=== PATIENT | male | born 1955 | race Caucasian/White ===

== ENCOUNTER 2020-07-05 12:30 | Emergency (ER) | payer BC, OTHER ==
[2020-07-05] MEDS ORDERED: HYDROCORTISONE SUC 100 MG INJ ONE (12:56)
[2020-07-05 13:13] LABS: Absolute Lymphocytes (CBC) 0.5 K/uL (0.7-4.9); Basophils % 0.7 % (0-1.3); Lymphocytes % 9.5 % (15.3-44.8); RBC Red Blood Cell Count 4.37 M/uL (4.33-5.43)
[2020-07-05 13:40] LABS: Potassium 3.6 mmol/L (3.5-5.1)
--- NOTE | 2020-07-05 14:07 | RAD REPORT ---
EXAM DESCRIPTION: RAD - Chest Single View - 07/05/2020 1:30 pm CLINICAL HISTORY: COUGH, slurred speech, tachypnea, productive cough, hypoglycemia COMPARISON: None TECHNIQUE: AP portable chest image was obtained 07/05/2020 1:30 pm . FINDINGS: No focal mass or consolidation identified. Interstitial pattern is mildly prominent but no t outside of range of normal for a patient this age. Sternotomy wires are in place. Heart and vascula ture are normal. No measurable pleural effusion and no pneumothorax. No acute bony abnormality seen. No acute aortic findings suspected. IMPRESSION: No acute cardiopulmonary process.
[2020-07-05 14:25] LABS: SARS-COV-2 RT PCR NEGATIVE (NEGATIVE)
--- NOTE | 2020-07-05 15:10 | ER ---
Nurse's Notes [facility] Name: Jc Lozano Age: 64 yrs Sex: Male : 1955 Arrival Date: 07/05/2020 Time: 12:31 Bed 5 Private MD: Diagnosis: Hypoglycemia, unspecified Presentation: 07/05 12:31 Chief complaint: EMS states: [facility] 17 upon scene arrival and increased to 36 after 2 aa5 oral glucose and glucagon administration. EMS reports pt was awake with slurred speech upon arrival but became A\T\O x 4 en route. Thacypnea noted, pt reports productive cough and SOB since August 2019. 12:31 Coronavirus screen: cough unrelated to allergies, shortness of breath, Client presents aa5 with at least one sign or symptom that may indicate coronavirus-19. Standard/surgical mask placed on the client. Provider contacted for isolation considerations. Ebola Screen: Patient negative for fever greater than or equal to 101.5 degrees Fahrenheit, and additional compatible Ebola Virus Disease symptoms. Initial Sepsis Screen: Does the patient meet any 2 criteria? RR > 20 per min. HR > 90 bpm. Yes Does the patient have a suspected source of infection? Yes: Productive cough/pneumonia If YES to both, name of provider notified: Robreto Jaramillo MD. Risk Assessment: Do you want to hurt yourself or someone else? Patient reports no desire to harm self or others. Onset of symptoms was July 05, 2020. 12:31 Acuity: ALVARADO 2 aa5 12:31 Method Of Arrival: EMS: [facility] aa5 Historical: - Allergies: 12: No Known Allergies; aa5 - Home Meds: 12:31 furosemide 40 mg oral tab take 1 1/2 tabs twice a day [Active]; losartan 50 mg oral tab aa5 once daily [Active]; Plavix 75 mg Oral tab 1 tab once daily [Active]; glipizide 5 mg oral tab 0.5 tabs 2 times per day [Active]; pravastatin 40 mg oral tab 1 tab once daily [Active]; carvedilol 3.125 mg oral tab 2 times per day [Active]; - PMHx: 12:31 Hypertension; CVA; Diabetes - NIDDM; aa5 12:31 CHF; aa5 - PSHx: 12:31 Open Heart Surgery August 2019; aa5 - Immunization history:: Adult Immunizations unknown. - Social history:: Smoking status: Patient denies any tobacco usage or history of. - Family history:: not pertinent. - Hospitalizations: : No recent hospitalization is reported. Screenin:00 Abuse screen: Denies threats or abuse. Denies injuries from another. Nutritional jl7 screening: No deficits noted. Tuberculosis screening: No symptoms or risk factors identified. Fall Risk IV access (20 points). Assessment: 12:31 General: Appears uncomfortable, Behavior is cooperative. Pain: Denies pain. Neuro: aa5 Level of Consciousness is awake, alert, obeys commands, Oriented to person, place, time, situation. Cardiovascular: Heart tones S1 S2 present Lower extremities with multiple small scabs noted. . Rhythm is regular. Respiratory: Reports shortness of breath at rest on exertion cough that is productive, Airway is patent Respiratory effort is even, labored, Respiratory pattern is tachypnea Breath sounds are diminished bilaterally. GI: Abdomen is round. : No signs and/or symptoms were reported regarding the genitourinary system. EENT: No signs and/or symptoms were reported regarding the EENT system. Derm: Skin is dry, Skin is pale, Skin temperature is warm. Musculoskeletal: Range of motion: intact in all extremities. 13:10 Reassessment: Marked relief of symptoms noted, respirations are now unlabored and pt aa5 reports improvement of SOB. . 13:12 Reassessment: Patient is alert, oriented x 3, equal unlabored respirations, skin aa5 warm/dry/pink. Patient states symptoms have improved. Dr. Jaramillo at bedside checking on pt. . 13:13 Reassessment: Dr. Jaramillo at bedside discussing results and POC. jl7 14:00 Reassessment: Patient is alert, oriented x 3, equal unlabored respirations, skin aa5 warm/dry/pink. 16:17 Reassessment: Pt waiting for to come pick him up. jl7 Vital Signs: 12:31 BP 155 / 123; Pulse 93; Resp 26 S; Temp 99.6(O); Pulse Ox 98% on R/A; Pain 0/10; aa5 13:10 BP 143 / 76; Pulse 104; Resp 20 S; Pulse Ox 96% on R/A; jl7 ED Course: 12:30 Patient has correct armband on for positive identification. Placed in gown. Bed in low jl7 position. Call light in reach. Side rails up X2. hall monitor on. Pulse ox on. NIBP on. 12:30 No provider procedures requiring assistance completed. jl7 12:31 Patient arrived in ED. rn 12:31 Arm band placed on Patient placed in an exam room, on a stretcher. aa5 12:32 Roberto Jaramillo MD is Attending Physician. rn 12:38 Juli Tovar, KANE is Primary Nurse. aa5 12:40 Initial lab(s) drawn, by me, sent to lab. Inserted saline lock: 20 gauge in right aa5 antecubital area, using aseptic technique. Blood collected. 12:57 Triage completed. aa5 13:30 XRAY Chest (1 view) In Process Unspecified. EDMS 15:45 IV discontinued, intact, bleeding controlled, No redness/swelling at site. Pressure jl7 dressing applied. Administered Medications: 12:38 Not Given (Physician Discretion): D50W 50 ml IVP once; (1 amp) aa5 12:40 Drug: HydroCORTISONE 50 mg Route: IVP; Site: right antecubital; aa5 Outcome: 15:10 Discharge ordered by MD. rn 15:45 Discharged to home ambulatory, with family. jl7 15:45 Condition: stable 15:45 Discharge instructions given to patient, Instructed on discharge instructions, follow up and referral plans. Demonstrated understanding of instructions, follow-up care. 16:39 Patient left the ED. iw Signatures: Dispatcher [employer] EDMS Jerica Landaverde RN RN iw Roberto Jaramillo MD MD rn Calderon, Audri, KANE MIDDLETON aa5 Stephan Figueroa RN RN jl7 Corrections: (The following items were deleted from the chart) 13:00 12:31 Chief complaint: EMS states: [facility] 17 upon scene arrival and increased to 36 after aa5 2 oral glucose and glucagon administration. EMS reports pt was awake with slurred speech upon arrival but became A\T\O x 4 en route. aa5 13:00 12:31 Coronavirus screen: cough unrelated to allergies, shortness of breath, Client aa5 presents with at least one sign or symptom that may indicate coronavirus-19. Standard/surgical mask placed on the client. Provider contacted for isolation considerations. aa5 13:03 12:31 PSHx: Open Heart Surgery; aa5 aa5
--- NOTE | 2020-07-05 15:11 | EDPHYS ---
Physician Documentation [facility] Name: Jc Lozano Age: 64 yrs Sex: Male : 1955 Arrival Date: 07/05/2020 Time: 12:31 Bed 5 Private MD: ED Physician Roberto Jaramillo HPI: 07/05 13:25 This 64 yrs old Male presents to ER via EMS with complaints of low blood rn sugar. 13:25 The patient or guardian reports hypoglycemia, that was potentially precipitated by no rn particular event, with the patient's symptoms witnessed by family, Treatment prior to arrival includes: administration of glucagon, ingestion of sugary substance, EMS administered glucagon. Onset: The symptoms/episode began/occurred just prior to arrival. Current symptoms: In the emergency department the patient's symptoms have improved. The patient has experienced a previous episode. Reports woke up "unconscious", glucose was low, called 911, EMS arrived, slurred speech and glucose 17, unable to start IV, given oral glucose and glucagon, improvement of mental status and glucose. Pt takes glipizide, reports ate last night before bed, normal amount, and has not felt ill. Reports since august 2019 when had cardiac bypass has been having white sputum and inability to lay flat, has appt with pcp coming up, takes lasix at home. Denies fever at home. Denies being any more sob than usual for him.. Historical: - Allergies: 12:31 No Known Allergies; aa5 - Home Meds: 12:31 furosemide 40 mg oral tab take 1 1/2 tabs twice a day [Active]; losartan 50 mg oral tab aa5 once daily [Active]; Plavix 75 mg Oral tab 1 tab once daily [Active]; glipizide 5 mg oral tab 0.5 tabs 2 times per day [Active]; pravastatin 40 mg oral tab 1 tab once daily [Active]; carvedilol 3.125 mg oral tab 2 times per day [Active]; - PMHx: 12:31 Hypertension; CVA; Diabetes - NIDDM; aa5 12:31 CHF; aa5 - PSHx: 12:31 Open Heart Surgery August 2019; aa5 - Immunization history:: Adult Immunizations unknown. - Social history:: Smoking status: Patient denies any tobacco usage or history of. - Family history:: not pertinent. - Hospitalizations: : No recent hospitalization is reported. ROS: 13:25 Constitutional: Negative for fever, chills, and weight loss, Eyes: Negative for injury, rn pain, redness, and discharge, Neck: Negative for injury, pain, and swelling, Cardiovascular: Negative for chest pain, palpitations, and edema, Respiratory: Negative for wheezing, and pleuritic chest pain, Abdomen/GI: Negative for abdominal pain, nausea, vomiting, diarrhea, and constipation, Back: Negative for injury and pain, MS/Extremity: Negative for injury and deformity, Skin: Negative for injury, rash, and discoloration, Neuro: Negative for headache, weakness, numbness, tingling, and seizure. Exam: 13:25 Constitutional: This is a well developed, well nourished patient who is awake, alert, rn moves from stretcher to bed on his own. Head/Face: Normocephalic, atraumatic. Eyes: Periorbital areas with no swelling, redness, or edema. ENT: dry MM Cardiovascular: Tachycardic, regular Respiratory: Mild tachypnea Abdomen/GI: soft, non-tender Skin: Warm, dry MS/ Extremity: Pulses equal, no cyanosis. Neurovascular intact. Full, normal range of motion. Neuro: Awake and alert, GCS 15, oriented to person, place, time, and situation. Cranial nerves II-XII grossly intact. Motor strength 5/5 in all extremities. Sensory grossly intact. Cerebellar exam normal. Vital Signs: 12:31 BP 155 / 123; Pulse 93; Resp 26 S; Temp 99.6(O); Pulse Ox 98% on R/A; Pain 0/10; aa5 13:10 BP 143 / 76; Pulse 104; Resp 20 S; Pulse Ox 96% on R/A; jl7 MDM: 12:32 Patient medically screened. rn 15:01 Differential diagnosis: hypoglycemic episode. Data reviewed: vital signs, nurses notes, intake rn test result(s), radiologic studies, and as a result, I will discharge patient. Counseling: I had a detailed discussion with the patient and/or guardian regarding: the historical points, exam findings, and any diagnostic results supporting the discharge/admit diagnosis, lab results, radiology results, the need for outpatient follow up, to return to the emergency department if symptoms worsen or persist or if there are any questions or concerns that arise at home. Response to treatment: the patient's symptoms have markedly improved after treatment, the patient's condition has returned to base line, the patient is now symptom free, patient is well hydrated. and as a result, I will discharge patient. Special discussion: I discussed with the patient/guardian in detail that at this point there is no indication for admission to the hospital. It is understood, however, that if the symptoms persist or worsen the patient needs to return immediately for re-evaluation. Based on the history and exam findings, there is no indication for further emergent testing or inpatient evaluation. I discussed with the patient/guardian the need to see the cereal miller for further evaluation of the symptoms. I discussed with the patient/guardian the need to see the primary care provider for further evaluation of the symptoms. I discussed with the patient/guardian the need to see the smoking pipe coater for further evaluation of the symptoms. ED course: Glucose stabilized, ate here, repeat glucose stable in 200s, reports breathing at baseline, cxr no acute findings, covid and flu neg, bnp normal, will dc home. Reports has doctor liliane borrero to address longstanding sob since cardiac bypass. . 07/05 12:34 Order name: CBC with Diff; Complete Time: 13:58 rn 07/05 12:34 Order name: Basic Metabolic Panel; Complete Time: 13:58 rn 07/05 12:47 Order name: Glucose, Ancillary Testing; Complete Time: 13:58 EDMS 07/05 12:34 Order name: IV Start; Complete Time: 12:39 rn 07/05 12:42 Order name: Diet Regular; Complete Time: 12:43 eb 07/05 13:14 Order name: XRAY Chest (1 view); Complete Time: 14:10 rn 07/05 13:16 Order name: NT PRO-BNP; Complete Time: 13:58 EDMS 07/05 14:15 Order name: Glucose, Ancillary Testing; Complete Time: 15:00 EDMS 07/05 14:25 Order name: COVID-19/FLU A+B; Complete Time: 15:00 EDMS 07/05 12:34 Order name: PO challenge; Complete Time: 12:39 rn Administered Medications: 12:38 Not Given (Physician Discretion): D50W 50 ml IVP once; (1 amp) aa5 12:40 Drug: HydroCORTISONE 50 mg Route: IVP; Site: right antecubital; aa5 Disposition: 07/05/20 15:10 Discharged to Home. Impression: Hypoglycemia, unspecified. - Condition is Stable. - Discharge Instructions: Hypoglycemia, Blood Glucose Monitoring, Adult. - Medication Reconciliation Form, Thank You Letter, Antibiotic Education, Prescription Opioid Use, Work release form form. - Follow up: Private Physician; When: As needed; Reason: Recheck today's complaints, Re-evaluation by your physician. - Problem is new. - Symptoms have improved. Signatures: Dispatcher [employer] EDMS Jerica Landaverde RN RN iw Nieto, Roman, MD MD rn Calderon, Audri, RN RN aa5 Corrections: (The following items were deleted from the chart) 13:03 12:31 PSHx: Open Heart Surgery; 5 5 13:16 13:15 PROBNP+C.LAB.BRZ ordered. EDNM EDNM 13:45 13:15 CORONAVIRUS+MR.LAB.BRZ ordered. EDNM EDNM 16:39 15:10 07/05/2020 15:10 Discharged to Home. Impression: Hypoglycemia, unspecified. iw Condition is Stable. Forms are Medication Reconciliation Form, Thank You Letter, Antibiotic Education, Prescription Opioid Use. Follow up: Private Physician; When: As needed; Reason: Recheck today's complaints, Re-evaluation by your physician. Problem is new. Symptoms have improved. rn
[2020-07-05 16:43] VITALS: TEMP 99.6
[2020-07-05 16:44] VITALS: BP 143/76; O2SAT 96
== END 2020-07-05 16:39 | disposition home or self-care (01) ==
LOC: ER 12:30
DX: E11.649 Type 2 diabetes mellitus with hypoglycemia without coma (principal); Z20.822 Contact with and (suspected) exposure to COVID-19; I10 Essential (primary) hypertension; I50.9 Heart failure, unspecified; Z86.73 Personal history of transient ischemic attack (TIA), and cerebral infarction without residual deficits; Z79.4 Long term (current) use of insulin; Z79.01 Long term (current) use of anticoagulants; Z95.1 Presence of aortocoronary bypass graft
CPT/HCPCS: 85025; 80048; 36415; 82947 ×2; 83880; 0240U; 71045; J1720; 96374; 99284

== ENCOUNTER 2024-02-16 16:09 | Emergency (ER) | payer OTHER ==
--- OUTSIDE RECORDS SUMMARY | 2024-02-16 16:21 | XMS REPORT | Continuity of Care Document ---
Author Name Unknown Address [address] [facility] [place] [address] [facility] thconnect Address [address] [facility] [place] [address] Care Team Providers Care Manufacturing Engineer Machining Name Role Phone DELICIAMKAI MORALES Primary Care Physician Unavaila STEPHANIE Robledo Attending Clinician Unavailable STEPHANIE ESTRADA Attending Clinician Unavailable PAUL THAKKAR Attending Clinician Unavailable VIKTORIA WARREN Attending Clinician Unavailab VIKTORIA Gusman Attending Clinician Unavailab NOEMI Lin Attending Clinician Unavailable Stephanie Estrada MD Attending Clinician Timmy Maddox CPhT Attending Clinician Unachapito edwards 2, [facility] Attending Clinician Unavailable Noemí Knowles MD Attending Clinician Noemi Quinonez MD Attending Clinician [phone] Paul Thakkar MD Attending Clinician [phone] [facility]ending Clinician Unavailable Doctor Unassigned, [place] Attending Clinician U robbieailable HOLGER SOLOMON Attending Clinician Unavailable Holger Solomon MD Attending Clinician [phone] Vivian Cloud NP Attending Clinician Po, [facility] Main Attending Clinician UnavailFEDERICO Middleton Attending Clinician Unavailable Viktoria Warren DO Attending Clinician JUANITO HOLLEY Attending Clinician Unavail able JUANITO HOLLEY Attending Clinician Unavail Juanito Tafoya MD Attending Clinician Giovanna Wilder MD Attending Clinician [phone] GIOVANNA WILDER Attending Clinician Unavailable Angela Clarke Attending Clinician Unava patsy Hyatt MD, Federico Attending Clinician [phone] INCO WEAVER Attending Clinician Unavailable NICO WEAVER Attending Clinician Unavailable Nico Weaver MD Attending Clinician [phone] VIVIAN CLOUD Attending Clinician Unavailab VIVIAN Woods Attending Clinician Unavailab nanda Miller MD, Keon Gonzalez Attending Clinician [phone] Bart Landers CRNA Attending Clinician [phone] LILLY VILLANUEVA Attending Clinician UnavailLILLY Mcgraw Attending Clinician UnavailMaki Moy MD Attending Clinician +-[phone] MAKI OBREGON Attending Clinician Unavailable CHANDA LONDONO Attending Clinician Unavailable CHANDA LONDONO Attending Clinician Unavailable Maki Obregon MD Attending Clinician + [phone], [facility] Attending Clinician Unavailable Britni Jackson RN Attending Clinician Unavailabl e Doctor Unassigned, [place] Attending Clinician U anna Thakkar MD, Paul Attending Clinician [phone] Viktoria Warren DO Attending Clinician [phone], [facility] Attending Clinician Unavailable JARED WILL Attending Clinician UnavailIVÁN Sanchez Attending Clinician Unavaila ble Nurse, [facility] Attending Clinician Unava ilLigia Brock Attending Clinician + [phone] Only, Ad[facility] Test Attending Clinician Unavailable Daxa GUARDADO, Doug Dhaliwal Attending Clinician + [phone] [phone], [facility] Main Attending Clinician UnavailANNE-MARIE Schuler Attending Clinician Unavailable Cheng Attending Clinician Unavailable , [facility] Echo Room 1 - Attending Clinician Brianna [facility], [facility] Cardiac Attending Clinician Unavailab Markus Maurer MD Attending Clinician [phone] MARKUS ANDREA JR Attending Clinician UnavailJovita Farrell RN Attending Clinician [phone] CHRISTA MAYS Attending Clinician Unavailrui e Christa Conrad Attending Clinician [phone] Justice Villegas MD Attending Clinician [phone] Outpt-Raya, Ccl Attending Clinician Unavailable Tech, [facility] Cardio Fac Attending Clinician Unavail able 1, [facility] Room Attending Clinician Jayesh Doyle RN, Chani Brenner Attending Clinician + [phone] STEPHANIE ESTRADA Admitting Clinician Unavailable NOEMÍ KNOWLES Admitting Clinician Unavailable JUANITO HOLLEY Admitting Clinician Unavail able GIOVANNA WILDER Admitting Clinician Unavailable Giovanna Wilder MD Admitting Clinician [phone] VIKTROIA WARREN Admitting Clinician Unavailable PAUL THAKKAR Admitting Clinician Unavailable Cheng Admitting Clinician Unavailable MARKUS ANDREA JR Admitting Clinician UnavailMarkus Vázquez MD Admitting Clinician [phone] CHRISTA MAYS Admitting Clinician Unavailrui esquivel Payers Payer Name Policy Type Policy Number Effective Date Expirati on Date Source MEDICARE PART A \\T\\ B [id number] 2019 00:00:00 COMMERCIAL NON-CONTRACT GENERIC [id number] 2022 00:00:00 Problems Condition Name Condition Details Condition Category Status Onset Date Resolution Date Last Treatment Date Treating Clinician Comments Source 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 Disease Active 02-05 00:00: 00 [facility] Abnormal stress test Abnormal stress test Disease Active 02-05 00:00: 00 [facility] acute hospital Chronic HFrEF (heart failure with reduced ejection fraction) Chronic HFrEF (heart failure with reduced ejection fraction) Disease Active 02-05 00:00: 00 [facility] acute hospital Mixed hyperlipid emia Mixed hyperlipid emia Disease Active 01-18 00:00: 00 [facility] acute hospital Preoperati ve cardiovasc ular examinatio n Preoperati ve cardiovasc ular examinatio n Disease Active 8-09 00:00: 00 [facility] acute hospital Statin intoleranc e Statin intoleranc e Disease Active 8-09 00:00: 00 [facility] acute hospital Dysplastic colon polyp Dysplastic colon polyp Disease Active 8- 00:00: 00 [facility] acute hospital Cecal lesion Cecal lesion Disease Active 8- 00:00: 00 [facility] acute hospital Overlappin g malignant neoplasm of colon Overlappin g malignant neoplasm of colon Disease Active 8- 00:00: 00 [facility] acute hospital Screening for rectal cancer Screening for rectal cancer Disease Active 6-06 00:00: 00 [facility] acute hospital Chronic heart failure with preserved ejection fraction Chronic heart failure with preserved ejection fraction Disease Active 5-15 00:00: 00 [facility] acute hospital Dyslipidem ia Dyslipidem ia Disease Active 5-15 00:00: 00 [facility] acute hospital COPD without exacerbati on COPD without exacerbati on Disease Active 5-15 00:00: 00 General acute hospital Forgetfuln ess Forgetfuln ess Disease Active 5-15 00:00: 00 [facility] acute hospital Cellulitis of left leg Cellulitis of left leg Disease Active 7-14 00:00: 00 [facility] acute hospital Seasonal allergic rhinitis, unspecifie d trigger Seasonal allergic rhinitis, unspecifie d trigger Disease Active 7-14 00:00: 00 [facility] acute hospital Alcoholism Alcoholism Disease Active 7-14 00:00: 00 [facility] acute hospital Hospital discharge follow-up Hospital discharge follow-up Disease Active 4-14 00:00: 00 [facility] acute hospital S/P CABG x 3 (HAIDER to LAD, SVG to PDA, SVG to OM) on 08/13/2019; Dr Andrea S/P CABG x 3 (HAIDER to LAD, SVG to PDA, SVG to OM) on 08/13/2019; Dr Andrea Disease Active 3-03 00:00: 00 [facility] acute hospital CAD S/P percutaneo us coronary angioplast y CAD S/P percutaneo us coronary angioplast y Disease Active 06-30 00:00: 00 [facility] acute hospital Medicare annual wellness visit, initial Medicare annual wellness visit, initial Disease Active 06-30 00:00: 00 [facility] acute hospital Tobacco dependence Tobacco dependence Disease Active 06-30 00:00: 00 General acute hospital Need for Tdap vaccinatio n Need for Tdap vaccinatio n Disease Active 06-30 00:00: 00 [facility] acute hospital Diabetic foot Diabetic foot Disease Active 06-30 00:00: 00 General acute hospital CHF (congestiv e heart failure) CHF (congestiv e heart failure) Disease Active 06-21 00:00: 00 [facility] acute hospital Coronary artery disease involving [place] coronary artery of [place] heart without angina pectoris Coronary artery disease involving [place] coronary artery of [place] heart without angina pectoris Disease Active 06-20 00:00: 00 [facility] acute hospital Acute on chronic combined systolic and diastolic congestive heart failure Acute on chronic combined systolic and diastolic congestive heart failure Disease Active 06-20 00:00: 00 [facility] acute hospital Type 2 myocardial infarction Type 2 myocardial infarction Disease Active 06-20 00:00: 00 [facility] acute hospital Abnormal nuclear stress test Abnormal nuclear stress test Disease Active 06-20 00:00: 00 [facility] acute hospital Coronary artery disease involving [place] coronary artery of [place] heart without angina pectoris Coronary artery disease involving [place] coronary artery of [place] heart without angina pectoris Disease Active 06-20 00:00: 00 [facility] acute hospital History of closure of ileostomy History of closure of ileostomy Disease Active 2017-06 00:00: 00 [facility] acute hospital Essential hypertensi on Essential hypertensi on Disease Active 01-28 00:00: 00 [facility] acute hospital Rectal cancer Rectal cancer Disease Active 01-28 00:00: 00 [facility] acute hospital Cerebrovas cular accident (CVA) due to thrombosis of carotid artery, unspecifie d blood vessel laterality Cerebrovas cular accident (CVA) due to thrombosis of carotid artery, unspecifie d blood vessel laterality Disease Active 01-28 00:00: 00 [facility] acute hospital Patient uses snuff Patient uses snuff Disease Active 01-28 00:00: 00 [facility] acute hospital Chronic systolic heart failure Chronic systolic heart failure Disease Active 01-28 00:00: 00 [facility] acute hospital Type 2 diabetes mellitus without complicati on, without long-term current use of insulin Type 2 diabetes mellitus without complicati on, without long-term current use of insulin Disease Active 12-05 00:00: 00 [facility] acute hospital History of alcohol abuse History of alcohol abuse Disease Active 12-05 00:00: 00 [facility] acute hospital Anemia of chronic disease Anemia of chronic disease Disease Active 12-05 00:00: 00 [facility] acute hospital History of CVA (cerebrova scular accident) History of CVA (cerebrova scular accident) Disease Active 06-12 00:00: 00 [facility] acute hospital History of MA (myocardia l infarction ) History of MA (myocardia l infarction ) Disease Active [facility] acute hospital History of rectal cancer History of rectal cancer Disease Active General acute hospital GI bleed GI bleed Disease Resolve d 12-25 00:00: 00 2018-06-20 00:00:00 2018-06-20 23:55:50 General acute hospital Hematochez ia Hematochez ia Disease Resolve d 12-16 00:00: 00 2018-06-20 00:00:00 2018-06-20 23:55:49 General acute hospital Stroke Stroke Disease Resolve d 12-16 00:00: 00 2017-01-28 00:00:00 2017-01-28 20:15:49 General acute hospital Bruit Bruit Disease Resolve d 12-06 00:00: 00 2017-01-28 00:00:00 2017-01-28 18:56:24 General acute hospital Congestive heart failure of unknown etiology Congestive heart failure of unknown etiology Disease Resolve d 12-05 00:00: 00 2017-01-28 00:00:00 2017-01-28 18:56:28 General acute hospital Acute combined systolic and diastolic congestive heart failure Acute combined systolic and diastolic congestive heart failure Disease Resolve d 12-05 00:00: 00 2017-01-28 00:00:00 2017-01-28 18:56:36 General acute hospital Allergies, Adverse Reactions, Alerts Allergy Name Allergy Type Status Severity Reaction(s) Onset Date Inactive Date Treating Clinician Comments Source STATINS- HMG-COA REDUCTAS E INHIBITO RS Drug Class Active Other-Cmnt 01-20 00:00: 00 General acute hospital Statins- Hmg-Coa Reductas e Inhibito rs Propensi ty to adverse reaction s Active Other - See comments 01-20 00:00: 00 myalgai [facility] acute hospital NO KNOWN ALLERGIE S Drug Class Active [facility] acute hospital Family History Family Member Diagnosis Comments Start Date Stop Date Sourc e Natural father Diabetes Unive [facility] Natural father Hypertension Un [facility] Natural father Stroke Unive [facility] Natural [facility] Paternal grandmother Stroke [facility] Paternal Uncle Heart Unive [facility] Paternal Uncle Stroke Unive [facility] Natural sister Brain [facility] Social History Social Habit Start Date Stop Date Quantity Comments Source History of tobacco use Snuff User [facility] History SDOH Alcohol Frequency [facility] History SDOH Alcohol Std Drinks [facility] History SDOH Alcohol Binge [facility] Gender identity Univ [facility] Sexual orientation U niversFormerly [facility] Alcoholic beverage intake 2024-02-15 00:00:00 2024-02-15 00:00:00 Current drinker of alcohol (finding) [facility] History of Social function 2023-10-25 00:00:00 2023-10-25 00:00:00 [facility] Alcohol intake 2022-12-01 00:00:00 2022-12-01 00:00:00 Current drinker of alcohol (finding) [facility] Exposure to SARS-CoV-2 (event) 2022-06-05 00:00:00 2022-06-15 12:43:00 Not sure [facility] Tobacco Comment 2022-03-11 00:00:00 2022-03-11 00:00:00 Approx. 1/2 can per day [facility] Tobacco use and exposure 2022-03-11 00:00:00 2022-03-11 00:00:00 Former smokeless tobacco user [facility] Alcohol Comment 2018-06-20 00:00:00 2018-06-20 00:00:00 pint of liquor each week [facility] Sex assigned at 1955 00:00:00 1955 00:00:00 [facility] Smoking Status Start Date Stop Date Source Ex-smoker 2022-03-11 00:00:00 2022-03-11 00:00:00 [facility] Medications Ordered Medication Name Filled Medication Name Start Date Stop Date Current Medication? Ordering Clinician Indication Dosage Frequency Signature (SIG) Comments Components Source losartan 50 mg tablet 02-01 00:00: 00 Yes [id number] 02 50mg Take 1 tablet by mouth in the morning. [facility] acute hospital clopidogreL 75 mg tablet 02-01 00:00: 00 Yes [id number] 75mg Take 1 tablet by mouth in the morning. [facility] acute hospital regadenoson (LEXISCAN) injection 0.4 mg 01-31 15:21: 00 01-31 15:51 :00 No [id number] .4mg 0.4 mg, IV Push, ONCE, 1 dose, On Mon02/01/24 at 1030, Routine [facility] acute hospital tc 99m-tetrofo smin (MYOVIEW) injection 40.6 millicurie 01-31 15:15: 00 01-31 15:50 :00 No [id number] 40.6mCi 40.6 millicurie , Intravenou s, ONCE, 1 dose, On Mon02/01/24 at 1015, Routine [facility] acute hospital tc 99m-tetrofo smin (MYOVIEW) injection 15.4 millicurie 01-31 14:00: 00 01-31 14:00 :00 No [id number] 15.4mCi 15.4 millicurie , Intravenou s, ONCE, 1 dose, On Mon02/01/24 at 0900, Routine [facility] acute hospital perflutren protein-A microsphr (OPTISON) injection 3 mL 01-29 15:45: 00 01-29 15:30 :00 No [id number] 3mL 3 mL, IV Push, ONCE, 1 dose, On Mon01/30/24 at 1045, Routine [facility] acute hospital peg-electro lyte soln 236-22.74-6 .74 -5.86 gram solution 01-24 00:00: 00 01-25 04:59 :00 No 4000mL Take 4,000 mL by mouth once now for 1 dose. [facility] acute hospital neomycin 500 mg tablet 01-24 00:00: 00 01-25 04:59 :00 No 500mg Take 1 tablet by mouth once now for 1 dose. [facility] acute hospital metroNIDAZO LE 500 mg tablet 01-24 00:00: 00 01-25 04:59 :00 No 500mg Take 1 tablet by mouth once now for 1 dose. Take 1 gram ( 2 tablets) by mouth at 4:00 pm, 5:00 PM and 10 PM the day before your surgery. [facility] acute hospital evolocumab 140 mg/mL subcutaneou s injection 01-18 00:00: 00 01-19 04:59 :00 Yes [id number] 140mg inject 1 mL under the skin every 2 (two) weeks. [facility] acute hospital tamsulosin (FLOMAX) 0.4 mg 24 hr capsule 12-26 00:00: 00 Yes [id number] 9102 .4mg Take 1 capsule by mouth in the morning. [facility] acute hospital tolterodine LA 2 mg 24 hr capsule 12-26 00:00: 00 Yes [id number] 2mg Take 1 capsule by mouth in the morning. [facility] acute hospital predniSONE 20 mg tablet 12-25 00:00: 00 12-31 04:59 :00 Yes [id number] 40mg Take 2 tablets by mouth in the morning for 5 days. [facility] acute hospital iopamidol (ISOVUE 370-500 mL) injection 84 mL 12-19 20:45: 00 12-19 19:56 :00 No [id number] 84mL 84 mL, Intravenou s, ONCE, 1 dose, On Mon12/20/23 at 1545, Routine [facility] acute hospital ipratropium -albuteroL (DUONEB) 0.5 mg-3 mg(2.5 mg base)/3 mL nebulizer solution 3 mL 12-19 19:30: 00 12-19 18:38 :00 No 3mL 3 mL, Inhalation , ONCE, 1 dose, On Mon12/20/23 at 1430, ASMITA [facility] acute hospital predniSONE (DELTASONE) tablet 60 mg 12-19 18:30: 00 12-19 18:33 :00 No 60mg 60 mg, Oral, ONCE, 1 dose, On Mon12/20/23 at 1330, ASMITA [facility] acute hospital albuterol 90 mcg/actuati on inhaler 12-19 00:00: 00 Yes [id number] 2{puff} Inhale 2 Puffs every 4 (four) hours as needed for Wheezing or Shortness of Breath. [facility] acute hospital predniSONE 20 mg tablet 12-19 00:00: 00 12-25 04:59 :00 Yes [id number] 40mg Take 2 tablets by mouth in the morning for 5 days. [facility] acute hospital dulaglutide (TRULICITY) 1.5 mg/0.5 mL PnIj 12-13 00:00: 00 12-11 00:00 :00 No [id number] 1.5mg inject 1 Pen under the skin weekly for 60 days. 2nd dose [facility] acute hospital simethicone (GAS RELIEF (SIMETHICON E)) 40 mg/0.6 mL drops 12-11 12:46: 00 12-11 13:08 :23 No PRN, Starting on Mon12/12/23 at 0746, Until Mon12/12/23 at 0808, Routine, Intra-op [facility] acute hospital water for irrigation irrigation solution 12-11 12:36: 00 12-11 13:08 :23 No PRN, Starting on Mon12/12/23 at 0736, Until Mon12/12/23 at 0808, Routine, Intra-op [facility] acute hospital lactated ringers IV infusion 1,000 mL 12-11 11:45: 00 12-11 12:06 :00 No 1000mL at 42 mL/hr, 1,000 mL, IV Infusion, ONCE, 1 dose, On Mon12/12/23 at 0645, Routine, DSU Pre-op [facility] acute hospital dulaglutide (TRULICITY) 0.75 mg/0.5 mL PnIj 11-14 00:00: 00 12-11 00:00 :00 No [id number] .75mg inject 1 Pen under the skin weekly for 30 days. 1st dose [facility] acute hospital flash glucose sensor (FREESTYLE KRISTIN 2 SENSOR) Kit 11-09 00:00: 00 Yes [id number] 1{each} 1 Each every 14 (fourteen) days. [facility] acute hospital glipiZIDE XL 10 mg 24 hr tablet 11-07 00:00: 00 Yes [id number] 10mg Take 1 tablet by mouth daily with breakfast. [facility] acute hospital semaglutide (OZEMPIC) 0.25 mg or 0.5 mg (2 mg/3 mL) PnIj 11-07 00:00: 00 11-14 00:00 :00 No [id number] .25mg inject 0.25 mg under the skin weekly for 30 days. [facility] acute hospital flash glucose sensor (FREESTYLE KRISTIN 2 SENSOR) Kit 11-07 00:00: 00 11-09 00:00 :00 No [id number] 1{each} 1 Each every 14 (fourteen) days. [facility] acute hospital Magnesium 250 mg Tab 10-25 00:00: 00 12-11 00:00 :00 No [id number] 1{tbl} Take 1 tablet by mouth in the morning. [facility] acute hospital metoprolol succinate XL 50 mg 24 hr tablet 10-24 00:00: 00 Yes [id number] 02 50mg Take 1 tablet by mouth in the morning. [facility] acute hospital furosemide 40 mg tablet 10-24 00:00: 00 Yes [id number] 02 40mg Take 1 tablet by mouth in the morning and 1 tablet in the evening. [facility] acute hospital ezetimibe 10 mg tablet 10-24 00:00: 00 Yes [id number] 10mg Take 1 tablet by mouth in the morning. [facility] acute hospital aspirin 81 mg chewable tablet 10-24 00:00: 00 Yes [id number] 81mg Take 1 tablet by mouth in the morning. [facility] acute hospital B complex-vit gross C-folic acid tablet 10-24 00:00: 00 Yes [id number] 1{tbl} Take 1 tablet by mouth daily with breakfast. [facility] acute hospital losartan 50 mg tablet 10-24 00:00: 00 02-01 00:00 :00 No [id number] 02 50mg Take 1 tablet by mouth in the morning. [facility] acute hospital atorvastati n 80 mg tablet 10-24 00:00: 00 01-10 00:00 :00 No [id number] 80mg Take 1 tablet by mouth in the morning. [facility] acute hospital ferrous sulfate 325 mg (65 mg iron) tablet 10-24 00:00: 00 01-10 00:00 :00 No [id number] 325mg Take 1 tablet by mouth in the morning and 1 tablet in the evening. [facility] acute hospital ezetimibe 10 mg tablet 24 00:00: 00 10-24 00:00 :00 No 10mg Take 1 tablet by mouth in the morning. [facility] acute hospital clopidogreL 75 mg tablet 02-01 00:00: 00 02-01 00:00 :00 No [id number] 75mg Take 1 tablet by mouth in the morning. [facility] acute hospital furosemide 40 mg tablet 02-01 00:00: 00 10-24 00:00 :00 No [id number] 40mg Take 1 tablet by mouth in the morning and 1 tablet in the evening. [facility] acute hospital losartan 50 mg tablet 02-01 00:00: 00 10-24 00:00 :00 No [id number] 50mg Take 1 tablet by mouth in the morning. [facility] acute hospital metoprolol succinate XL 50 mg 24 hr tablet 02-01 00:00: 00 10-24 00:00 :00 No [id number] 50mg Take 1 tablet by mouth in the morning. [facility] acute hospital Azelastine 205.5 mcg (0.15 %) nasal spray 11-15 00:00: 00 12-11 00:00 :00 No [id number] 2{spray } Use 2 Sprays in each nostril in the morning and 2 Sprays in the evening. [facility] acute hospital predniSONE 10 mg tablet 11-15 00:00: 00 11-25 04:59 :00 No [id number] Take 3 tablets by mouth daily for 3 days, THEN 2 tablets daily for 3 days, THEN 1 tablet daily for 3 days. [facility] acute hospital arformotero L 15 mcg/2 mL nebulizer solution 06-14 00:00: 00 Yes [id number] 15ug Use 2 mL as directed in the morning and 2 mL in the evening. [facility] acute hospital albuterol 2.5 mg /3 mL (0.083 %) nebulizer solution 06-14 00:00: 00 12-19 00:00 :00 No [id number] 2.5mg Inhale 3 mL every 4 (four) hours as needed for Wheezing or Shortness of Breath. [facility] acute hospital arformotero L 15 mcg/2 mL nebulizer solution 03-11 00:00: 00 06-14 00:00 :00 No 15ug Use 2 mL as directed in the morning and 2 mL in the evening. [facility] acute hospital albuterol 2.5 mg /3 mL (0.083 %) nebulizer solution 03-11 00:00: 00 06-14 00:00 :00 No 2.5mg Inhale 3 mL every 4 (four) hours as needed for Wheezing or Shortness of Breath. [facility] acute hospital atorvastati n 80 mg tablet 02-01 00:00: 00 10-24 00:00 :00 No [id number] 80mg Take 1 tablet by mouth in the morning. [facility] acute hospital clopidogreL 75 mg tablet 02-01 00:00: 00 02-01 00:00 :00 No [id number] 75mg Take 1 tablet by mouth in the morning. [facility] acute hospital furosemide 40 mg tablet 02-01 00:00: 00 02-01 00:00 :00 No [id number] 40mg Take 1 tablet by mouth in the morning and 1 tablet in the evening. [facility] acute hospital losartan 50 mg tablet 02-01 00:00: 00 02-01 00:00 :00 No [id number] 50mg Take 1 tablet by mouth in the morning. [facility] acute hospital metoprolol succinate XL 50 mg 24 hr tablet 02-01 00:00: 00 02-01 00:00 :00 No [id number] 50mg Take 1 tablet by mouth in the morning. [facility] acute hospital furosemide 40 mg tablet 12-06 00:00: 00 02-01 00:00 :00 No [id number] 40mg Take 1 tablet by mouth 2 (two) times daily. [facility] acute hospital carvediloL 3.125 mg tablet 12-06 00:00: 00 02-01 00:00 :00 No [id number] 3.125mg Take 1 tablet by mouth 2 (two) times daily with meals. [facility] acute hospital clopidogreL 75 mg tablet 12-06 00:00: 00 02-01 00:00 :00 No [id number] 75mg Take 1 tablet by mouth daily. [facility] acute hospital losartan 50 mg tablet 12-06 00:00: 00 02-01 00:00 :00 No [id number] 50mg Take 1 tablet by mouth daily. [facility] acute hospital atorvastati n 80 mg tablet 12-06 00:00: 00 02-01 00:00 :00 No [id number] 80mg Take 1 tablet by mouth at bedtime. [facility] acute hospital fluticasone propion-kvng meteroL (ADVAIR DISKUS) 250-50 mcg/dose inhalation disk 8-18 00:00: 00 03-11 00:00 :00 No [id number] 1{puff} Inhale 1 Puff every 12 (twelve) hours. [facility] acute hospital glipiZIDE 5 mg tablet 11-25 00:00: 00 11-07 00:00 :00 No [id number] 5mg Take 1 tablet by mouth 2 (two) times daily before breakfast and dinner. [facility] acute hospital clindamycin 300 mg capsule 16 00:00: 00 10-24 00:00 :00 No [id number] 300mg Take 1 capsule by mouth 4 (four) times daily. [facility] acute hospital umeclidiniu m (INCRUSE ELLIPTA) 62.5 mcg/actuati on DsDv 09-11 00:00: 00 12-11 00:00 :00 No [id number] 1{puff} Inhale 1 Puff daily. [facility] acute hospital albuterol (PROAIR HFA) 90 mcg/actuati on inhaler 08-17 00:00: 00 06-14 00:00 :00 No [id number] 2{puff} Inhale 2 Puffs every 4 (four) hours as needed for Wheezing or Shortness of Breath. [facility] acute hospital aspirin 81 mg chewable tablet 804 00:00: 00 10-24 00:00 :00 No 81mg Take 1 tablet by mouth daily. [facility] acute hospital ferrous sulfate 325 mg (65 mg iron) tablet 628 00:00: 00 10-24 00:00 :00 No 325mg Take 1 tablet by mouth 3 (three) times daily with meals. General acute [facility] Immun[facility] Ordered Immunization Name Filled Immunization Name Date Status Comments Source Influenza Virus Vaccine,quad Im,preserve Free 2022-06-14 00:00:00 Completed [facility] Influenza Virus Vaccine,quad Im,preserve Free 652022-06-14 00:00:00 Completed [facility] Influenza Virus Vaccine,quad Im,preserve Free 652022-06-14 00:00:00 Completed [facility] Influenza Virus Vaccine,quad Im,preserve Free 2022-06-14 00:00:00 Completed [facility] Influenza Virus Vaccine,quad Im,preserve Free 652022-06-14 00:00:00 Completed [facility] Influenza Virus Vaccine,quad Im,preserve Free 652022-06-14 00:00:00 Completed [facility] Influenza Virus Vaccine,quad Im,preserve Free 2022-06-14 00:00:00 Completed [facility] Influenza Virus Vaccine,quad Im,preserve Free 2022-06-14 00:00:00 Completed [facility] Influenza Virus Vaccine,quad Im,preserve Free 2022-06-14 00:00:00 Completed [facility] Influenza Virus Vaccine,quad Im,preserve Free 652022-06-14 00:00:00 Completed [facility] Influenza Virus Vaccine,quad Im,preserve Free 2022-06-14 00:00:00 Completed [facility] Influenza Virus Vaccine,quad Im,preserve Free 652022-06-14 00:00:00 Completed [facility] Influenza Virus Vaccine,quad Im,preserve Free 652022-06-14 00:00:00 Completed [facility] Influenza Virus Vaccine,quad Im,preserve Free 652022-06-14 00:00:00 Completed [facility] Influenza Virus Vaccine,quad Im,preserve Free 652022-06-14 00:00:00 Completed [facility] Influenza Virus Vaccine,quad Im,preserve Free 652022-06-14 00:00:00 Completed [facility] Influenza Virus Vaccine,quad Im,preserve Free 65+ 2022-06-14 00:00:00 Completed [facility] Influenza Virus Vaccine,quad Im,preserve Free 652022-06-14 00:00:00 Completed [facility] Influenza Virus Vaccine,quad Im,preserve Free 652022-06-14 00:00:00 Completed [facility] Influenza Virus Vaccine,quad Im,preserve Free 652022-06-14 00:00:00 Completed [facility] Influenza Virus Vaccine,quad Im,preserve Free 652022-06-14 00:00:00 Completed [facility] Influenza Virus Vaccine,quad Im,preserve Free 652022-06-14 00:00:00 Completed [facility] Influenza Virus Vaccine,quad Im,preserve Free 652022-06-14 00:00:00 Completed [facility] Influenza Virus Vaccine,quad Im,preserve Free 652022-06-14 00:00:00 Completed [facility] SARS-COV-2 COVID-19 PFIZER VACCINE 2020-08-07 00:00:00 Completed [facility] SARS-COV-2 COVID-19 PFIZER VACCINE 2020-08-07 00:00:00 Completed [facility] SARS-COV-2 COVID-19 PFIZER VACCINE 2020-08-07 00:00:00 Completed [facility] SARS-COV-2 COVID-19 PFIZER VACCINE 2020-08-07 00:00:00 Completed [facility] SARS-COV-2 COVID-19 PFIZER VACCINE 2020-08-07 00:00:00 Completed [facility] SARS-COV-2 COVID-19 PFIZER VACCINE 2020-08-07 00:00:00 Completed [facility] SARS-COV-2 COVID-19 PFIZER VACCINE 2020-08-07 00:00:00 Completed [facility] SARS-COV-2 COVID-19 PFIZER VACCINE 2020-08-07 00:00:00 Completed [facility] SARS-COV-2 COVID-19 PFIZER VACCINE 2020-08-07 00:00:00 Completed [facility] SARS-COV-2 COVID-19 PFIZER VACCINE 2020-08-07 00:00:00 Completed [facility] SARS-COV-2 COVID-19 PFIZER VACCINE 2020-08-07 00:00:00 Completed [facility] SARS-COV-2 COVID-19 PFIZER VACCINE 2020-08-07 00:00:00 Completed [facility] SARS-COV-2 COVID-19 PFIZER VACCINE 2020-08-07 00:00:00 Completed [facility] SARS-COV-2 COVID-19 PFIZER VACCINE 2020-08-07 00:00:00 Completed [facility] SARS-COV-2 COVID-19 PFIZER VACCINE 2020-08-07 00:00:00 Completed [facility] SARS-COV-2 COVID-19 PFIZER VACCINE 2020-08-07 00:00:00 Completed [facility] SARS-COV-2 COVID-19 PFIZER VACCINE 2020-08-07 00:00:00 Completed [facility] SARS-COV-2 COVID-19 PFIZER VACCINE 2020-08-07 00:00:00 Completed [facility] SARS-COV-2 COVID-19 PFIZER VACCINE 2020-08-07 00:00:00 Completed [facility] SARS-COV-2 COVID-19 PFIZER VACCINE 2020-08-07 00:00:00 Completed [facility] SARS-COV-2 COVID-19 PFIZER VACCINE 2020-08-07 00:00:00 Completed [facility] SARS-COV-2 COVID-19 PFIZER VACCINE 2020-08-07 00:00:00 Completed [facility] SARS-COV-2 COVID-19 PFIZER VACCINE 2020-08-07 00:00:00 Completed [facility] SARS-COV-2 COVID-19 PFIZER VACCINE 2020-08-07 00:00:00 Completed [facility] SARS-COV-2 COVID-19 PFIZER VACCINE 2020-08-07 00:00:00 Completed [facility] SARS-COV-2 COVID-19 PFIZER VACCINE 2020-08-07 00:00:00 Completed [facility] SARS-COV-2 COVID-19 PFIZER VACCINE 2020-08-07 00:00:00 Completed [facility] SARS-COV-2 COVID-19 PFIZER VACCINE 2020-08-07 00:00:00 Completed [facility] SARS-COV-2 COVID-19 PFIZER VACCINE 2020-08-07 00:00:00 Completed [facility] SARS-COV-2 COVID-19 PFIZER VACCINE 2020-08-07 00:00:00 Completed [facility] SARS-COV-2 COVID-19 PFIZER VACCINE 2020-08-07 00:00:00 Completed [facility] SARS-COV-2 COVID-19 PFIZER VACCINE 2020-08-07 00:00:00 Completed [facility] SARS-COV-2 COVID-19 PFIZER VACCINE 2020-08-07 00:00:00 Completed [facility] SARS-COV-2 COVID-19 PFIZER VACCINE 2020-08-07 00:00:00 Completed [facility] SARS-COV-2 COVID-19 PFIZER VACCINE 2020-07-07 00:00:00 Completed [facility] SARS-COV-2 COVID-19 PFIZER VACCINE 2020-07-07 00:00:00 Completed [facility] SARS-COV-2 COVID-19 PFIZER VACCINE 2020-07-07 00:00:00 Completed [facility] SARS-COV-2 COVID-19 PFIZER VACCINE 2020-07-07 00:00:00 Completed [facility] SARS-COV-2 COVID-19 PFIZER VACCINE 2020-07-07 00:00:00 Completed [facility] SARS-COV-2 COVID-19 PFIZER VACCINE 2020-07-07 00:00:00 Completed [facility] SARS-COV-2 COVID-19 PFIZER VACCINE 2020-07-07 00:00:00 Completed [facility] SARS-COV-2 COVID-19 PFIZER VACCINE 2020-07-07 00:00:00 Completed [facility] SARS-COV-2 COVID-19 PFIZER VACCINE 2020-07-07 00:00:00 Completed [facility] SARS-COV-2 COVID-19 PFIZER VACCINE 2020-07-07 00:00:00 Completed [facility] SARS-COV-2 COVID-19 PFIZER VACCINE 2020-07-07 00:00:00 Completed [facility] SARS-COV-2 COVID-19 PFIZER VACCINE 2020-07-07 00:00:00 Completed [facility] SARS-COV-2 COVID-19 PFIZER VACCINE 2020-07-07 00:00:00 Completed [facility] SARS-COV-2 COVID-19 PFIZER VACCINE 2020-07-07 00:00:00 Completed [facility] SARS-COV-2 COVID-19 PFIZER VACCINE 2020-07-07 00:00:00 Completed [facility] SARS-COV-2 COVID-19 PFIZER VACCINE 2020-07-07 00:00:00 Completed [facility] SARS-COV-2 COVID-19 PFIZER VACCINE 2020-07-07 00:00:00 Completed [facility] SARS-COV-2 COVID-19 PFIZER VACCINE 2020-07-07 00:00:00 Completed [facility] SARS-COV-2 COVID-19 PFIZER VACCINE 2020-07-07 00:00:00 Completed [facility] SARS-COV-2 COVID-19 PFIZER VACCINE 2020-07-07 00:00:00 Completed [facility] SARS-COV-2 COVID-19 PFIZER VACCINE 2020-07-07 00:00:00 Completed [facility] SARS-COV-2 COVID-19 PFIZER VACCINE 2020-07-07 00:00:00 Completed [facility] SARS-COV-2 COVID-19 PFIZER VACCINE 2020-07-07 00:00:00 Completed [facility] SARS-COV-2 COVID-19 PFIZER VACCINE 2020-07-07 00:00:00 Completed [facility] SARS-COV-2 COVID-19 PFIZER VACCINE 2020-07-07 00:00:00 Completed [facility] SARS-COV-2 COVID-19 PFIZER VACCINE 2020-07-07 00:00:00 Completed [facility] SARS-COV-2 COVID-19 PFIZER VACCINE 2020-07-07 00:00:00 Completed [facility] SARS-COV-2 COVID-19 PFIZER VACCINE 2020-07-07 00:00:00 Completed [facility] SARS-COV-2 COVID-19 PFIZER VACCINE 2020-07-07 00:00:00 Completed [facility] SARS-COV-2 COVID-19 PFIZER VACCINE 2020-07-07 00:00:00 Completed [facility] SARS-COV-2 COVID-19 PFIZER VACCINE 2020-07-07 00:00:00 Completed [facility] SARS-COV-2 COVID-19 PFIZER VACCINE 2020-07-07 00:00:00 Completed [facility] SARS-COV-2 COVID-19 PFIZER VACCINE 2020-07-07 00:00:00 Completed [facility] SARS-COV-2 COVID-19 PFIZER VACCINE 2020-07-07 00:00:00 Completed [facility] Pneumococcal 13 Conjugate, PCV13 (Prevnar 13) 2019-06-25 00:00:00 Completed [facility] TDAP 2019-06-25 00:00:00 Completed [facility] Pneumococcal 13 Conjugate, PCV13 (Prevnar 13) 2019-06-25 00:00:00 Completed [facility] TDAP 2019-06-25 00:00:00 Completed [facility] Pneumococcal 13 Conjugate, PCV13 (Prevnar 13) 2019-06-25 00:00:00 Completed [facility] TDAP 2019-06-25 00:00:00 Completed [facility] Pneumococcal 13 Conjugate, PCV13 (Prevnar 13) 2019-06-25 00:00:00 Completed [facility] TDAP 2019-06-25 00:00:00 Completed [facility] Pneumococcal 13 Conjugate, PCV13 (Prevnar 13) 2019-06-25 00:00:00 Completed [facility] TDAP 2019-06-25 00:00:00 Completed [facility] Pneumococcal 13 Conjugate, PCV13 (Prevnar 13) 2019-06-25 00:00:00 Completed [facility] TDAP 2019-06-25 00:00:00 Completed [facility] Pneumococcal 13 Conjugate, PCV13 (Prevnar 13) 2019-06-25 00:00:00 Completed [facility] TDAP 2019-06-25 00:00:00 Completed [facility] Pneumococcal 13 Conjugate, PCV13 (Prevnar 13) 2019-06-25 00:00:00 Completed [facility] TDAP 2019-06-25 00:00:00 Completed [facility] Pneumococcal 13 Conjugate, PCV13 (Prevnar 13) 2019-06-25 00:00:00 Completed [facility] TDAP 2019-06-25 00:00:00 Completed [facility] Pneumococcal 13 Conjugate, PCV13 (Prevnar 13) 2019-06-25 00:00:00 Completed [facility] TDAP 2019-06-25 00:00:00 Completed [facility] Pneumococcal 13 Conjugate, PCV13 (Prevnar 13) 2019-06-25 00:00:00 Completed [facility] TDAP 2019-06-25 00:00:00 Completed [facility] Pneumococcal 13 Conjugate, PCV13 (Prevnar 13) 2019-06-25 00:00:00 Completed [facility] TDAP 2019-06-25 00:00:00 Completed [facility] Pneumococcal 13 Conjugate, PCV13 (Prevnar 13) 2019-06-25 00:00:00 Completed [facility] TDAP 2019-06-25 00:00:00 Completed [facility] Pneumococcal 13 Conjugate, PCV13 (Prevnar 13) 2019-06-25 00:00:00 Completed [facility] TDAP 2019-06-25 00:00:00 Completed [facility] Pneumococcal 13 Conjugate, PCV13 (Prevnar 13) 2019-06-25 00:00:00 Completed [facility] TDAP 2019-06-25 00:00:00 Completed [facility] Pneumococcal 13 Conjugate, PCV13 (Prevnar 13) 2019-06-25 00:00:00 Completed [facility] TDAP 2019-06-25 00:00:00 Completed [facility] Pneumococcal 13 Conjugate, PCV13 (Prevnar 13) 2019-06-25 00:00:00 Completed [facility] TDAP 2019-06-25 00:00:00 Completed [facility] Pneumococcal 13 Conjugate, PCV13 (Prevnar 13) 2019-06-25 00:00:00 Completed [facility] TDAP 2019-06-25 00:00:00 Completed [facility] Pneumococcal 13 Conjugate, PCV13 (Prevnar 13) 2019-06-25 00:00:00 Completed [facility] TDAP 2019-06-25 00:00:00 Completed [facility] Pneumococcal 13 Conjugate, PCV13 (Prevnar 13) 2019-06-25 00:00:00 Completed [facility] TDAP 2019-06-25 00:00:00 Completed [facility] Pneumococcal 13 Conjugate, PCV13 (Prevnar 13) 2019-06-25 00:00:00 Completed [facility] TDAP 2019-06-25 00:00:00 Completed [facility] Pneumococcal 13 Conjugate, PCV13 (Prevnar 13) 2019-06-25 00:00:00 Completed [facility] TDAP 2019-06-25 00:00:00 Completed [facility] Pneumococcal 13 Conjugate, PCV13 (Prevnar 13) 2019-06-25 00:00:00 Completed [facility] TDAP 2019-06-25 00:00:00 Completed [facility] Pneumococcal 13 Conjugate, PCV13 (Prevnar 13) 2019-06-25 00:00:00 Completed [facility] TDAP 2019-06-25 00:00:00 Completed [facility] Pneumococcal 13 Conjugate, PCV13 (Prevnar 13) 2019-06-25 00:00:00 Completed [facility] TDAP 2019-06-25 00:00:00 Completed [facility] Pneumococcal 13 Conjugate, PCV13 (Prevnar 13) 2019-06-25 00:00:00 Completed [facility] TDAP 2019-06-25 00:00:00 Completed [facility] Pneumococcal 13 Conjugate, PCV13 (Prevnar 13) 2019-06-25 00:00:00 Completed [facility] TDAP 2019-06-25 00:00:00 Completed [facility] Pneumococcal 13 Conjugate, PCV13 (Prevnar 13) 2019-06-25 00:00:00 Completed [facility] TDAP 2019-06-25 00:00:00 Completed [facility] Pneumococcal 13 Conjugate, PCV13 (Prevnar 13) 2019-06-25 00:00:00 Completed [facility] TDAP 2019-06-25 00:00:00 Completed [facility] Pneumococcal 13 Conjugate, PCV13 (Prevnar 13) 2019-06-25 00:00:00 Completed [facility] TDAP 2019-06-25 00:00:00 Completed [facility] Pneumococcal 13 Conjugate, PCV13 (Prevnar 13) 2019-06-25 00:00:00 Completed [facility] TDAP 2019-06-25 00:00:00 Completed [facility] Pneumococcal 13 Conjugate, PCV13 (Prevnar 13) 2019-06-25 00:00:00 Completed [facility] TDAP 2019-06-25 00:00:00 Completed [facility] Pneumococcal 13 Conjugate, PCV13 (Prevnar 13) 2019-06-25 00:00:00 Completed [facility] TDAP 2019-06-25 00:00:00 Completed [facility] Pneumococcal 13 Conjugate, PCV13 (Prevnar 13) 2019-06-25 00:00:00 Completed [facility] TDAP 2019-06-25 00:00:00 Completed [facility] Zoster(Zostavax)([facility]) 2017-06-12 00:00:00 Completed [facility] Zoster(Zostavax)([facility]) 2017-06-12 00:00:00 Completed [facility] Zoster(Zostavax)([facility]) 2017-06-12 00:00:00 Completed [facility] Zoster(Zostavax)([facility]) 2017-06-12 00:00:00 Completed [facility] Zoster(Zostavax)([facility]) 2017-06-12 00:00:00 Completed [facility] Zoster(Zostavax)([facility]) 2017-06-12 00:00:00 Completed [facility] Zoster(Zostavax)([facility]) 2017-06-12 00:00:00 Completed [facility] Zoster(Zostavax)([facility]) 2017-06-12 00:00:00 Completed [facility] Zoster(Zostavax)([facility]) 2017-06-12 00:00:00 Completed [facility] Zoster(Zostavax)([facility]) 2017-06-12 00:00:00 Completed [facility] Zoster(Zostavax)([facility]) 2017-06-12 00:00:00 Completed [facility] Zoster(Zostavax)([facility]) 2017-06-12 00:00:00 Completed [facility] Zoster(Zostavax)([facility]) 2017-06-12 00:00:00 Completed [facility] Zoster(Zostavax)([facility]) 2017-06-12 00:00:00 Completed [facility] Zoster(Zostavax)([facility]) 2017-06-12 00:00:00 Completed [facility] Zoster(Zostavax)([facility]) 2017-06-12 00:00:00 Completed [facility] Zoster(Zostavax)([facility]) 2017-06-12 00:00:00 Completed [facility] Zoster(Zostavax)([facility]) 2017-06-12 00:00:00 Completed [facility] Zoster(Zostavax)([facility]) 2017-06-12 00:00:00 Completed [facility] Zoster(Zostavax)([facility]) 2017-06-12 00:00:00 Completed [facility] Zoster(Zostavax)([facility]) 2017-06-12 00:00:00 Completed [facility] Zoster(Zostavax)([facility]) 2017-06-12 00:00:00 Completed [facility] Zoster(Zostavax)([facility]) 2017-06-12 00:00:00 Completed [facility] Zoster(Zostavax)([facility]) 2017-06-12 00:00:00 Completed [facility] Zoster(Zostavax)([facility]) 2017-06-12 00:00:00 Completed [facility] Zoster(Zostavax)([facility]) 2017-06-12 00:00:00 Completed [facility] Zoster(Zostavax)([facility]) 2017-06-12 00:00:00 Completed [facility] Zoster(Zostavax)([facility]) 2017-06-12 00:00:00 Completed [facility] Zoster(Zostavax)([facility]) 2017-06-12 00:00:00 Completed [facility] Zoster(Zostavax)([facility]) 2017-06-12 00:00:00 Completed [facility] Zoster(Zostavax)([facility]) 2017-06-12 00:00:00 Completed [facility] Zoster(Zostavax)([facility]) 2017-06-12 00:00:00 Completed [facility] Zoster(Zostavax)([facility]) 2017-06-12 00:00:00 Completed [facility] Zoster(Zostavax)([facility]) 2017-06-12 00:00:00 Completed [facility] Pneumococcal Polysaccharide, PPSV23 (PNEUMOVAX) 2016-12-07 00:00:00 Completed [facility] Pneumococcal Polysaccharide, PPSV23 (PNEUMOVAX) 2016-12-07 00:00:00 Completed [facility] Pneumococcal Polysaccharide, PPSV23 (PNEUMOVAX) 2016-12-07 00:00:00 Completed [facility] Pneumococcal Polysaccharide, PPSV23 (PNEUMOVAX) 2016-12-07 00:00:00 Completed [facility] Pneumococcal Polysaccharide, PPSV23 (PNEUMOVAX) 2016-12-07 00:00:00 Completed [facility] Pneumococcal Polysaccharide, PPSV23 (PNEUMOVAX) 2016-12-07 00:00:00 Completed [facility] Pneumococcal Polysaccharide, PPSV23 (PNEUMOVAX) 2016-12-07 00:00:00 Completed [facility] Pneumococcal Polysaccharide, PPSV23 (PNEUMOVAX) 2016-12-07 00:00:00 Completed [facility] Pneumococcal Polysaccharide, PPSV23 (PNEUMOVAX) 2016-12-07 00:00:00 Completed [facility] Pneumococcal Polysaccharide, PPSV23 (PNEUMOVAX) 2016-12-07 00:00:00 Completed [facility] Pneumococcal Polysaccharide, PPSV23 (PNEUMOVAX) 2016-12-07 00:00:00 Completed [facility] Pneumococcal Polysaccharide, PPSV23 (PNEUMOVAX) 2016-12-07 00:00:00 Completed [facility] Pneumococcal Polysaccharide, PPSV23 (PNEUMOVAX) 2016-12-07 00:00:00 Completed [facility] Pneumococcal Polysaccharide, PPSV23 (PNEUMOVAX) 2016-12-07 00:00:00 Completed [facility] Pneumococcal Polysaccharide, PPSV23 (PNEUMOVAX) 2016-12-07 00:00:00 Completed [facility] Pneumococcal Polysaccharide, PPSV23 (PNEUMOVAX) 2016-12-07 00:00:00 Completed [facility] Pneumococcal Polysaccharide, PPSV23 (PNEUMOVAX) 2016-12-07 00:00:00 Completed [facility] Pneumococcal Polysaccharide, PPSV23 (PNEUMOVAX) 2016-12-07 00:00:00 Completed [facility] Pneumococcal Polysaccharide, PPSV23 (PNEUMOVAX) 2016-12-07 00:00:00 Completed [facility] Pneumococcal Polysaccharide, PPSV23 (PNEUMOVAX) 2016-12-07 00:00:00 Completed [facility] Pneumococcal Polysaccharide, PPSV23 (PNEUMOVAX) 2016-12-07 00:00:00 Completed [facility] Pneumococcal Polysaccharide, PPSV23 (PNEUMOVAX) 2016-12-07 00:00:00 Completed [facility] Pneumococcal Polysaccharide, PPSV23 (PNEUMOVAX) 2016-12-07 00:00:00 Completed [facility] Pneumococcal Polysaccharide, PPSV23 (PNEUMOVAX) 2016-12-07 00:00:00 Completed [facility] Pneumococcal Polysaccharide, PPSV23 (PNEUMOVAX) 2016-12-07 00:00:00 Completed [facility] Pneumococcal Polysaccharide, PPSV23 (PNEUMOVAX) 2016-12-07 00:00:00 Completed [facility] Pneumococcal Polysaccharide, PPSV23 (PNEUMOVAX) 2016-12-07 00:00:00 Completed [facility] Pneumococcal Polysaccharide, PPSV23 (PNEUMOVAX) 2016-12-07 00:00:00 Completed [facility] Pneumococcal Polysaccharide, PPSV23 (PNEUMOVAX) 2016-12-07 00:00:00 Completed [facility] Pneumococcal Polysaccharide, PPSV23 (PNEUMOVAX) 2016-12-07 00:00:00 Completed [facility] Pneumococcal Polysaccharide, PPSV23 (PNEUMOVAX) 2016-12-07 00:00:00 Completed [facility] Pneumococcal Polysaccharide, PPSV23 (PNEUMOVAX) 2016-12-07 00:00:00 Completed [facility] Pneumococcal Polysaccharide, PPSV23 (PNEUMOVAX) 2016-12-07 00:00:00 Completed [facility] Pneumococcal Polysaccharide, PPSV23 (PNEUMOVAX) 2016-12-07 00:00:00 Completed [facility] Pneumococcal Polysaccharide, PPSV23 (PNEUMOVAX) Unknown Completed [facility] Zoster(Zostavax)( ingles) Unknown Completed [facility] Pneumococcal 13 Conjugate, PCV13 (Prevnar 13) Unknown Completed [facility] TDAP Unknown Completed [facility] SARS-COV-2 COVID-19 PFIZER VACCINE Unknown Completed [facility] SARS-COV-2 COVID-19 PFIZER VACCINE Unknown Completed [facility] Influenza Virus Vaccine,quad Im,preserve Free 65+ (FLUAD) Unknown Completed [facility] Pneumococcal Polysaccharide, PPSV23 (PNEUMOVAX) Unknown Completed [facility] Zoster(Zostavax)( ingles) Unknown Completed [facility] Pneumococcal 13 Conjugate, PCV13 (Prevnar 13) Unknown Completed [facility] TDAP Unknown Completed [facility] SARS-COV-2 COVID-19 PFIZER VACCINE Unknown Completed [facility] SARS-COV-2 COVID-19 PFIZER VACCINE Unknown Completed [facility] Influenza Virus Vaccine,quad Im,preserve Free 65+ (FLUAD) Unknown Completed [facility] Pneumococcal Polysaccharide, PPSV23 (PNEUMOVAX) Unknown Completed [facility] Zoster(Zostavax)( ingles) Unknown Completed [facility] Pneumococcal 13 Conjugate, PCV13 (Prevnar 13) Unknown Completed [facility] TDAP Unknown Completed [facility] SARS-COV-2 COVID-19 PFIZER VACCINE Unknown Completed [facility] SARS-COV-2 COVID-19 PFIZER VACCINE Unknown Completed [facility] Influenza Virus Vaccine,quad Im,preserve Free 65+ (FLUAD) Unknown Completed [facility] Pneumococcal Polysaccharide, PPSV23 (PNEUMOVAX) Unknown Completed [facility] Zoster(Zostavax)(Sh ingles) Unknown Completed [facility] Pneumococcal 13 Conjugate, PCV13 (Prevnar 13) Unknown Completed [facility] TDAP Unknown Completed [facility] SARS-COV-2 COVID-19 PFIZER VACCINE Unknown Completed [facility] SARS-COV-2 COVID-19 PFIZER VACCINE Unknown Completed [facility] Influenza Virus Vaccine,quad Im,preserve Free 65+ (FLUAD) Unknown Completed [facility] Pneumococcal Polysaccharide, PPSV23 (PNEUMOVAX) Unknown Completed [facility] Zoster(Zostavax)( ingles) Unknown Completed [facility] Pneumococcal 13 Conjugate, PCV13 (Prevnar 13) Unknown Completed [facility] TDAP Unknown Completed [facility] SARS-COV-2 COVID-19 PFIZER VACCINE Unknown Completed [facility] SARS-COV-2 COVID-19 PFIZER VACCINE Unknown Completed [facility] Influenza Virus Vaccine,quad Im,preserve Free 65+ (FLUAD) Unknown Completed [facility] Pneumococcal Polysaccharide, PPSV23 (PNEUMOVAX) Unknown Completed [facility] Zoster(Zostavax)( ingles) Unknown Completed [facility] Pneumococcal 13 Conjugate, PCV13 (Prevnar 13) Unknown Completed [facility] TDAP Unknown Completed [facility] SARS-COV-2 COVID-19 PFIZER VACCINE Unknown Completed [facility] SARS-COV-2 COVID-19 PFIZER VACCINE Unknown Completed [facility] Influenza Virus Vaccine,quad Im,preserve Free 65+ (FLUAD) Unknown Completed [facility] Pneumococcal Polysaccharide, PPSV23 (PNEUMOVAX) Unknown Completed [facility] Zoster(Zostavax)( ingles) Unknown Completed [facility] Pneumococcal 13 Conjugate, PCV13 (Prevnar 13) Unknown Completed [facility] TDAP Unknown Completed [facility] SARS-COV-2 COVID-19 PFIZER VACCINE Unknown Completed [facility] SARS-COV-2 COVID-19 PFIZER VACCINE Unknown Completed [facility] Influenza Virus Vaccine,quad Im,preserve Free 65+ (FLUAD) Unknown Completed [facility] Pneumococcal Polysaccharide, PPSV23 (PNEUMOVAX) Unknown Completed [facility] Zoster(Zostavax)( ingles) Unknown Completed [facility] Pneumococcal 13 Conjugate, PCV13 (Prevnar 13) Unknown Completed [facility] TDAP Unknown Completed [facility] SARS-COV-2 COVID-19 PFIZER VACCINE Unknown Completed [facility] SARS-COV-2 COVID-19 PFIZER VACCINE Unknown Completed [facility] Influenza Virus Vaccine,quad Im,preserve Free 65+ (FLUAD) Unknown Completed [facility] Pneumococcal Polysaccharide, PPSV23 (PNEUMOVAX) Unknown Completed [facility] Zoster(Zostavax)( ingles) Unknown Completed [facility] Pneumococcal 13 Conjugate, PCV13 (Prevnar 13) Unknown Completed [facility] TDAP Unknown Completed [facility] SARS-COV-2 COVID-19 PFIZER VACCINE Unknown Completed [facility] SARS-COV-2 COVID-19 PFIZER VACCINE Unknown Completed [facility] Influenza Virus Vaccine,quad Im,preserve Free 65+ (FLUAD) Unknown Completed [facility] Pneumococcal Polysaccharide, PPSV23 (PNEUMOVAX) Unknown Completed [facility] Zoster(Zostavax)( ingles) Unknown Completed [facility] Pneumococcal 13 Conjugate, PCV13 (Prevnar 13) Unknown Completed [facility] TDAP Unknown Completed [facility] SARS-COV-2 COVID-19 PFIZER VACCINE Unknown Completed [facility] SARS-COV-2 COVID-19 PFIZER VACCINE Unknown Completed [facility] Influenza Virus Vaccine,quad Im,preserve Free 65+ (FLUAD) Unknown Completed [facility] Pneumococcal Polysaccharide, PPSV23 (PNEUMOVAX) Unknown Completed [facility] Zoster(Zostavax)( ingles) Unknown Completed [facility] Pneumococcal 13 Conjugate, PCV13 (Prevnar 13) Unknown Completed [facility] TDAP Unknown Completed [facility] SARS-COV-2 COVID-19 PFIZER VACCINE Unknown Completed [facility] SARS-COV-2 COVID-19 PFIZER VACCINE Unknown Completed [facility] Influenza Virus Vaccine,quad Im,preserve Free 65+ (FLUAD) Unknown Completed [facility] Pneumococcal Polysaccharide, PPSV23 (PNEUMOVAX) Unknown Completed [facility] Zoster(Zostavax)( ingles) Unknown Completed [facility] Pneumococcal 13 Conjugate, PCV13 (Prevnar 13) Unknown Completed [facility] TDAP Unknown Completed [facility] SARS-COV-2 COVID-19 PFIZER VACCINE Unknown Completed [facility] SARS-COV-2 COVID-19 PFIZER VACCINE Unknown Completed [facility] Influenza Virus Vaccine,quad Im,preserve Free 65+ (FLUAD) Unknown Completed [facility] Pneumococcal Polysaccharide, PPSV23 (PNEUMOVAX) Unknown Completed [facility] Zoster(Zostavax)( ingles) Unknown Completed [facility] Pneumococcal 13 Conjugate, PCV13 (Prevnar 13) Unknown Completed [facility] TDAP Unknown Completed [facility] SARS-COV-2 COVID-19 PFIZER VACCINE Unknown Completed [facility] SARS-COV-2 COVID-19 PFIZER VACCINE Unknown Completed [facility] Influenza Virus Vaccine,quad Im,preserve Free 65+ (FLUAD) Unknown Completed [facility] Pneumococcal Polysaccharide, PPSV23 (PNEUMOVAX) Unknown Completed [facility] Zoster(Zostavax)( ingpebbles) Unknown Completed [facility] Pneumococcal 13 Conjugate, PCV13 (Prevnar 13) Unknown Completed [facility] TDAP Unknown Completed [facility] SARS-COV-2 COVID-19 PFIZER VACCINE Unknown Completed [facility] SARS-COV-2 COVID-19 PFIZER VACCINE Unknown Completed [facility] Influenza Virus Vaccine,quad Im,preserve Free 65+ (FLUAD) Unknown Completed [facility] Pneumococcal Polysaccharide, PPSV23 (PNEUMOVAX) Unknown Completed [facility] Zoster(Zostavax)( ingles) Unknown Completed [facility] Pneumococcal 13 Conjugate, PCV13 (Prevnar 13) Unknown Completed [facility] TDAP Unknown Completed [facility] SARS-COV-2 COVID-19 PFIZER VACCINE Unknown Completed [facility] SARS-COV-2 COVID-19 PFIZER VACCINE Unknown Completed [facility] Influenza Virus Vaccine,quad Im,preserve Free 65+ (FLUAD) Unknown Completed [facility] Pneumococcal Polysaccharide, PPSV23 (PNEUMOVAX) Unknown Completed [facility] Zoster(Zostavax)( ingles) Unknown Completed [facility] Pneumococcal 13 Conjugate, PCV13 (Prevnar 13) Unknown Completed [facility] TDAP Unknown Completed [facility] SARS-COV-2 COVID-19 PFIZER VACCINE Unknown Completed [facility] SARS-COV-2 COVID-19 PFIZER VACCINE Unknown Completed [facility] Influenza Virus Vaccine,quad Im,preserve Free 65+ (FLUAD) Unknown Completed [facility] Pneumococcal Polysaccharide, PPSV23 (PNEUMOVAX) Unknown Completed [facility] Zoster(Zostavax)(Sh ingles) Unknown Completed [facility] Pneumococcal 13 Conjugate, PCV13 (Prevnar 13) Unknown Completed [facility] TDAP Unknown Completed [facility] SARS-COV-2 COVID-19 PFIZER VACCINE Unknown Completed [facility] SARS-COV-2 COVID-19 PFIZER VACCINE Unknown Completed [facility] Influenza Virus Vaccine,quad Im,preserve Free 65+ (FLUAD) Unknown Completed [facility] Pneumococcal Polysaccharide, PPSV23 (PNEUMOVAX) Unknown Completed [facility] Zoster(Zostavax)( ingles) Unknown Completed [facility] Pneumococcal 13 Conjugate, PCV13 (Prevnar 13) Unknown Completed [facility] TDAP Unknown Completed [facility] SARS-COV-2 COVID-19 PFIZER VACCINE Unknown Completed [facility] SARS-COV-2 COVID-19 PFIZER VACCINE Unknown Completed [facility] Influenza Virus Vaccine,quad Im,preserve Free 65+ (FLUAD) Unknown Completed [facility] Pneumococcal Polysaccharide, PPSV23 (PNEUMOVAX) Unknown Completed [facility] Zoster(Zostavax)( ingles) Unknown Completed [facility] Pneumococcal 13 Conjugate, PCV13 (Prevnar 13) Unknown Completed [facility] TDAP Unknown Completed [facility] SARS-COV-2 COVID-19 PFIZER VACCINE Unknown Completed [facility] SARS-COV-2 COVID-19 PFIZER VACCINE Unknown Completed [facility] Influenza Virus Vaccine,quad Im,preserve Free 65+ (FLUAD) Unknown Completed [facility] Pneumococcal Polysaccharide, PPSV23 (PNEUMOVAX) Unknown Completed [facility] Zoster(Zostavax)(Sh ingles) Unknown Completed [facility] Pneumococcal 13 Conjugate, PCV13 (Prevnar 13) Unknown Completed [facility] TDAP Unknown Completed [facility] SARS-COV-2 COVID-19 PFIZER VACCINE Unknown Completed [facility] SARS-COV-2 COVID-19 PFIZER VACCINE Unknown Completed [facility] Influenza Virus Vaccine,quad Im,preserve Free 65+ (FLUAD) Unknown Completed [facility] Pneumococcal Polysaccharide, PPSV23 (PNEUMOVAX) Unknown Completed [facility] Zoster(Zostavax)(Sh ingles) Unknown Completed [facility] Pneumococcal 13 Conjugate, PCV13 (Prevnar 13) Unknown Completed [facility] TDAP Unknown Completed [facility] SARS-COV-2 COVID-19 PFIZER VACCINE Unknown Completed [facility] SARS-COV-2 COVID-19 PFIZER VACCINE Unknown Completed [facility] Influenza Virus Vaccine,quad Im,preserve Free 65+ (FLUAD) Unknown Completed [facility] Pneumococcal Polysaccharide, PPSV23 (PNEUMOVAX) Unknown Completed [facility] Zoster(Zostavax)(Yonathan ingpebbles) Unknown Completed [facility] Pneumococcal 13 Conjugate, PCV13 (Prevnar 13) Unknown Completed [facility] TDAP Unknown Completed [facility] SARS-COV-2 COVID-19 PFIZER VACCINE Unknown Completed [facility] SARS-COV-2 COVID-19 PFIZER VACCINE Unknown Completed [facility] Influenza Virus Vaccine,quad Im,preserve Free 65+ (FLUAD) Unknown Completed [facility] Pneumococcal Polysaccharide, PPSV23 (PNEUMOVAX) Unknown Completed [facility] Zoster(Zostavax)(Yonathan ingles) Unknown Completed [facility] Pneumococcal 13 Conjugate, PCV13 (Prevnar 13) Unknown Completed [facility] TDAP Unknown Completed [facility] SARS-COV-2 COVID-19 PFIZER VACCINE Unknown Completed [facility] SARS-COV-2 COVID-19 PFIZER VACCINE Unknown Completed [facility] Influenza Virus Vaccine,quad Im,preserve Free 65+ (FLUAD) Unknown Completed [facility] Pneumococcal Polysaccharide, PPSV23 (PNEUMOVAX) Unknown Completed [facility] Zoster(Zostavax)(Sh ingles) Unknown Completed [facility] Pneumococcal 13 Conjugate, PCV13 (Prevnar 13) Unknown Completed [facility] TDAP Unknown Completed [facility] SARS-COV-2 COVID-19 PFIZER VACCINE Unknown Completed [facility] SARS-COV-2 COVID-19 PFIZER VACCINE Unknown Completed [facility] Influenza Virus Vaccine,quad Im,preserve Free 65+ (FLUAD) Unknown Completed [facility] Pneumococcal Polysaccharide, PPSV23 (PNEUMOVAX) Unknown Completed [facility] Zoster(Zostavax)(Sh ingles) Unknown Completed [facility] Pneumococcal 13 Conjugate, PCV13 (Prevnar 13) Unknown Completed [facility] TDAP Unknown Completed [facility] SARS-COV-2 COVID-19 PFIZER VACCINE Unknown Completed [facility] SARS-COV-2 COVID-19 PFIZER VACCINE Unknown Completed [facility] Influenza Virus Vaccine,quad Im,preserve Free 65+ (FLUAD) Unknown Completed [facility] Pneumococcal Polysaccharide, PPSV23 (PNEUMOVAX) Unknown Completed [facility] Zoster(Zostavax)( ingles) Unknown Completed [facility] Pneumococcal 13 Conjugate, PCV13 (Prevnar 13) Unknown Completed [facility] TDAP Unknown Completed [facility] SARS-COV-2 COVID-19 PFIZER VACCINE Unknown Completed [facility] SARS-COV-2 COVID-19 PFIZER VACCINE Unknown Completed [facility] Influenza Virus Vaccine,quad Im,preserve Free 65+ (FLUAD) Unknown Completed [facility] Pneumococcal Polysaccharide, PPSV23 (PNEUMOVAX) Unknown Completed [facility] Zoster(Zostavax)(Yonathan ingles) Unknown Completed [facility] Pneumococcal 13 Conjugate, PCV13 (Prevnar 13) Unknown Completed [facility] TDAP Unknown Completed [facility] SARS-COV-2 COVID-19 PFIZER VACCINE Unknown Completed [facility] SARS-COV-2 COVID-19 PFIZER VACCINE Unknown Completed [facility] Influenza Virus Vaccine,quad Im,preserve Free 65+ (FLUAD) Unknown Completed [facility] Pneumococcal Polysaccharide, PPSV23 (PNEUMOVAX) Unknown Completed [facility] Zoster(Zostavax)(Sh ingles) Unknown Completed [facility] Pneumococcal 13 Conjugate, PCV13 (Prevnar 13) Unknown Completed [facility] TDAP Unknown Completed [facility] SARS-COV-2 COVID-19 PFIZER VACCINE Unknown Completed [facility] SARS-COV-2 COVID-19 PFIZER VACCINE Unknown Completed [facility] Influenza Virus Vaccine,quad Im,preserve Free 65+ (FLUAD) Unknown Completed [facility] Pneumococcal Polysaccharide, PPSV23 (PNEUMOVAX) Unknown Completed [facility] Zoster(Zostavax)(Sh ingles) Unknown Completed [facility] Pneumococcal 13 Conjugate, PCV13 (Prevnar 13) Unknown Completed [facility] TDAP Unknown Completed [facility] SARS-COV-2 COVID-19 PFIZER VACCINE Unknown Completed [facility] SARS-COV-2 COVID-19 PFIZER VACCINE Unknown Completed [facility] Influenza Virus Vaccine,quad Im,preserve Free 65+ (FLUAD) Unknown Completed [facility] Pneumococcal Polysaccharide, PPSV23 (PNEUMOVAX) Unknown Completed [facility] Zoster(Zostavax)( ingles) Unknown Completed [facility] Pneumococcal 13 Conjugate, PCV13 (Prevnar 13) Unknown Completed [facility] TDAP Unknown Completed [facility] SARS-COV-2 COVID-19 PFIZER VACCINE Unknown Completed [facility] SARS-COV-2 COVID-19 PFIZER VACCINE Unknown Completed [facility] Influenza Virus Vaccine,quad Im,preserve Free 65+ (FLUAD) Unknown Completed [facility] Pneumococcal Polysaccharide, PPSV23 (PNEUMOVAX) Unknown Completed [facility] Zoster(Zostavax)( ingles) Unknown Completed [facility] Pneumococcal 13 Conjugate, PCV13 (Prevnar 13) Unknown Completed [facility] TDAP Unknown Completed [facility] SARS-COV-2 COVID-19 PFIZER VACCINE Unknown Completed [facility] SARS-COV-2 COVID-19 PFIZER VACCINE Unknown Completed [facility] Influenza Virus Vaccine,quad Im,preserve Free 65+ (FLUAD) Unknown Completed [facility] Pneumococcal Polysaccharide, PPSV23 (PNEUMOVAX) Unknown Completed [facility] Zoster(Zostavax)(Sh ingles) Unknown Completed [facility] Pneumococcal 13 Conjugate, PCV13 (Prevnar 13) Unknown Completed [facility] TDAP Unknown Completed [facility] SARS-COV-2 COVID-19 PFIZER VACCINE Unknown Completed [facility] SARS-COV-2 COVID-19 PFIZER VACCINE Unknown Completed [facility] Influenza Virus Vaccine,quad Im,preserve Free 65+ (FLUAD) Unknown Completed [facility] Pneumococcal Polysaccharide, PPSV23 (PNEUMOVAX) Unknown Completed [facility] Zoster(Zostavax)(Sh ingles) Unknown Completed [facility] Pneumococcal 13 Conjugate, PCV13 (Prevnar 13) Unknown Completed [facility] TDAP Unknown Completed [facility] SARS-COV-2 COVID-19 PFIZER VACCINE Unknown Completed [facility] SARS-COV-2 COVID-19 PFIZER VACCINE Unknown Completed [facility] Influenza Virus Vaccine,quad Im,preserve Free 65+ (FLUAD) Unknown Completed [facility] Pneumococcal Polysaccharide, PPSV23 (PNEUMOVAX) Unknown Completed [facility] Zoster(Zostavax)( ingles) Unknown Completed [facility] Pneumococcal 13 Conjugate, PCV13 (Prevnar 13) Unknown Completed [facility] TDAP Unknown Completed [facility] SARS-COV-2 COVID-19 PFIZER VACCINE Unknown Completed [facility] SARS-COV-2 COVID-19 PFIZER VACCINE Unknown Completed [facility] Influenza Virus Vaccine,quad Im,preserve Free 65+ (FLUAD) Unknown Completed [facility] Pneumococcal Polysaccharide, PPSV23 (PNEUMOVAX) Unknown Completed [facility] Zoster(Zostavax)( ingles) Unknown Completed [facility] Pneumococcal 13 Conjugate, PCV13 (Prevnar 13) Unknown Completed [facility] TDAP Unknown Completed [facility] SARS-COV-2 COVID-19 PFIZER VACCINE Unknown Completed [facility] SARS-COV-2 COVID-19 PFIZER VACCINE Unknown Completed [facility] Influenza Virus Vaccine,quad Im,preserve Free 65+ (FLUAD) Unknown Completed [facility] Pneumococcal Polysaccharide, PPSV23 (PNEUMOVAX) Unknown Completed [facility] Zoster(Zostavax)(Sh ingles) Unknown Completed [facility] Pneumococcal 13 Conjugate, PCV13 (Prevnar 13) Unknown Completed [facility] TDAP Unknown Completed [facility] SARS-COV-2 COVID-19 PFIZER VACCINE Unknown Completed [facility] SARS-COV-2 COVID-19 PFIZER VACCINE Unknown Completed [facility] Influenza Virus Vaccine,quad Im,preserve Free 65+ (FLUAD) Unknown Completed [facility] Pneumococcal Polysaccharide, PPSV23 (PNEUMOVAX) Unknown Completed [facility] Zoster(Zostavax)(Sh ingles) Unknown Completed [facility] Pneumococcal 13 Conjugate, PCV13 (Prevnar 13) Unknown Completed [facility] TDAP Unknown Completed [facility] SARS-COV-2 COVID-19 PFIZER VACCINE Unknown Completed [facility] SARS-COV-2 COVID-19 PFIZER VACCINE Unknown Completed [facility] Influenza Virus Vaccine,quad Im,preserve Free 65+ (FLUAD) Unknown Completed [facility] Pneumococcal Polysaccharide, PPSV23 (PNEUMOVAX) Unknown Completed [facility] Zoster(Zostavax)( ingles) Unknown Completed [facility] Pneumococcal 13 Conjugate, PCV13 (Prevnar 13) Unknown Completed [facility] TDAP Unknown Completed [facility] SARS-COV-2 COVID-19 PFIZER VACCINE Unknown Completed [facility] SARS-COV-2 COVID-19 PFIZER VACCINE Unknown Completed [facility] Influenza Virus Vaccine,quad Im,preserve Free 65+ (FLUAD) Unknown Completed [facility] Pneumococcal Polysaccharide, PPSV23 (PNEUMOVAX) Unknown Completed [facility] Zoster(Zostavax)( ingles) Unknown Completed [facility] Pneumococcal 13 Conjugate, PCV13 (Prevnar 13) Unknown Completed [facility] TDAP Unknown Completed [facility] SARS-COV-2 COVID-19 PFIZER VACCINE Unknown Completed [facility] SARS-COV-2 COVID-19 PFIZER VACCINE Unknown Completed [facility] Influenza Virus Vaccine,quad Im,preserve Free 65+ (FLUAD) Unknown Completed [facility] Pneumococcal Polysaccharide, PPSV23 (PNEUMOVAX) Unknown Completed [facility] Zoster(Zostavax)(Sh ingles) Unknown Completed [facility] Pneumococcal 13 Conjugate, PCV13 (Prevnar 13) Unknown Completed [facility] TDAP Unknown Completed [facility] SARS-COV-2 COVID-19 PFIZER VACCINE Unknown Completed [facility] SARS-COV-2 COVID-19 PFIZER VACCINE Unknown Completed [facility] Influenza Virus Vaccine,quad Im,preserve Free 65+ (FLUAD) Unknown Completed [facility] Pneumococcal Polysaccharide, PPSV23 (PNEUMOVAX) Unknown Completed [facility] Zoster(Zostavax)(Sh ingles) Unknown Completed [facility] Pneumococcal 13 Conjugate, PCV13 (Prevnar 13) Unknown Completed [facility] TDAP Unknown Completed [facility] SARS-COV-2 COVID-19 PFIZER VACCINE Unknown Completed [facility] SARS-COV-2 COVID-19 PFIZER VACCINE Unknown Completed [facility] Influenza Virus Vaccine,quad Im,preserve Free 65+ (FLUAD) Unknown Completed [facility] Pneumococcal Polysaccharide, PPSV23 (PNEUMOVAX) Unknown Completed [facility] Zoster(Zostavax)( ingles) Unknown Completed [facility] Pneumococcal 13 Conjugate, PCV13 (Prevnar 13) Unknown Completed [facility] TDAP Unknown Completed [facility] SARS-COV-2 COVID-19 PFIZER VACCINE Unknown Completed [facility] SARS-COV-2 COVID-19 PFIZER VACCINE Unknown Completed [facility] Influenza Virus Vaccine,quad Im,preserve Free 65+ (FLUAD) Unknown Completed [facility] Pneumococcal Polysaccharide, PPSV23 (PNEUMOVAX) Unknown Completed [facility] Zoster(Zostavax)(Sh ingles) Unknown Completed [facility] Pneumococcal 13 Conjugate, PCV13 (Prevnar 13) Unknown Completed [facility] TDAP Unknown Completed [facility] SARS-COV-2 COVID-19 PFIZER VACCINE Unknown Completed [facility] [facility] SARS-COV-2 COVID-19 PFIZER VACCINE Unknown Completed [facility] Influenza Virus Vaccine,quad Im,preserve Free 65+ (FLUAD) Unknown Completed [facility] Pneumococcal Polysaccharide, PPSV23 (PNEUMOVAX) Unknown Completed [facility] Zoster(Zostavax)(Sh ingles) Unknown Completed [facility] Pneumococcal 13 Conjugate, PCV13 (Prevnar 13) Unknown Completed [facility] TDAP Unknown Completed [facility] SARS-COV-2 COVID-19 PFIZER VACCINE Unknown Completed [facility] SARS-COV-2 COVID-19 PFIZER VACCINE Unknown Completed [facility] Influenza Virus Vaccine,quad Im,preserve Free 65+ (FLUAD) Unknown Completed [facility] Pneumococcal Polysaccharide, PPSV23 (PNEUMOVAX) Unknown Completed [facility] Zoster(Zostavax)(Sh ingles) Unknown Completed [facility] Pneumococcal 13 Conjugate, PCV13 (Prevnar 13) Unknown Completed [facility] TDAP Unknown Completed [facility] SARS-COV-2 COVID-19 PFIZER VACCINE Unknown Completed [facility] SARS-COV-2 COVID-19 PFIZER VACCINE Unknown Completed [facility] Influenza Virus Vaccine,quad Im,preserve Free 65+ (FLUAD) Unknown Completed [facility] Pneumococcal Polysaccharide, PPSV23 (PNEUMOVAX) Unknown Completed [facility] Zoster(Zostavax)( ingles) Unknown Completed [facility] Pneumococcal 13 Conjugate, PCV13 (Prevnar 13) Unknown Completed [facility] TDAP Unknown Completed [facility] SARS-COV-2 COVID-19 PFIZER VACCINE Unknown Completed [facility] SARS-COV-2 COVID-19 PFIZER VACCINE Unknown Completed [facility] Influenza Virus Vaccine,quad Im,preserve Free 65+ (FLUAD) Unknown Completed [facility] Pneumococcal Polysaccharide, PPSV23 (PNEUMOVAX) Unknown Completed [facility] Zoster(Zostavax)(Sh ingles) Unknown Completed [facility] Pneumococcal 13 Conjugate, PCV13 (Prevnar 13) Unknown Completed [facility] TDAP Unknown Completed [facility] SARS-COV-2 COVID-19 PFIZER VACCINE Unknown Completed [facility] SARS-COV-2 COVID-19 PFIZER VACCINE Unknown Completed [facility] Influenza Virus Vaccine,quad Im,preserve Free 65+ (FLUAD) Unknown Completed [facility] Pneumococcal Polysaccharide, PPSV23 (PNEUMOVAX) Unknown Completed [facility] Zoster(Zostavax)(Sh ingles) Unknown Completed [facility] Pneumococcal 13 Conjugate, PCV13 (Prevnar 13) Unknown Completed [facility] TDAP Unknown Completed [facility] SARS-COV-2 COVID-19 PFIZER VACCINE Unknown Completed [facility] SARS-COV-2 COVID-19 PFIZER VACCINE Unknown Completed [facility] Influenza Virus Vaccine,quad Im,preserve Free 65+ (FLUAD) Unknown Completed [facility] Pneumococcal Polysaccharide, PPSV23 (PNEUMOVAX) Unknown Completed [facility] Zoster(Zostavax)(Sh ingles) Unknown Completed [facility] Pneumococcal 13 Conjugate, PCV13 (Prevnar 13) Unknown Completed [facility] TDAP Unknown Completed [facility] SARS-COV-2 COVID-19 PFIZER VACCINE Unknown Completed [facility] SARS-COV-2 COVID-19 PFIZER VACCINE Unknown Completed [facility] Influenza Virus Vaccine,quad Im,preserve Free 65+ (FLUAD) Unknown Completed [facility] Pneumococcal Polysaccharide, PPSV23 (PNEUMOVAX) Unknown Completed [facility] Zoster(Zostavax)( ingles) Unknown Completed [facility] Pneumococcal 13 Conjugate, PCV13 (Prevnar 13) Unknown Completed [facility] TDAP Unknown Completed [facility] SARS-COV-2 COVID-19 PFIZER VACCINE Unknown Completed [facility] SARS-COV-2 COVID-19 PFIZER VACCINE Unknown Completed [facility] Influenza Virus Vaccine,quad Im,preserve Free 65+ (FLUAD) Unknown Completed [facility] Pneumococcal Polysaccharide, PPSV23 (PNEUMOVAX) Unknown Completed [facility] Zoster(Zostavax)( ingles) Unknown Completed [facility] Pneumococcal 13 Conjugate, PCV13 (Prevnar 13) Unknown Completed [facility] TDAP Unknown Completed [facility] SARS-COV-2 COVID-19 PFIZER VACCINE Unknown Completed [facility] SARS-COV-2 COVID-19 PFIZER VACCINE Unknown Completed [facility] Influenza Virus Vaccine,quad Im,preserve Free 65+ (FLUAD) Unknown Completed [facility] Pneumococcal Polysaccharide, PPSV23 (PNEUMOVAX) Unknown Completed [facility] Zoster(Zostavax)(Sh ingles) Unknown Completed [facility] Pneumococcal 13 Conjugate, PCV13 (Prevnar 13) Unknown Completed [facility] TDAP Unknown Completed [facility] SARS-COV-2 COVID-19 PFIZER VACCINE Unknown Completed [facility] SARS-COV-2 COVID-19 PFIZER VACCINE Unknown Completed [facility] Influenza Virus Vaccine,quad Im,preserve Free 65+ (FLUAD) Unknown Completed [facility] Pneumococcal Polysaccharide, PPSV23 (PNEUMOVAX) Unknown Completed [facility] Zoster(Zostavax)(Sh ingles) Unknown Completed [facility] Pneumococcal 13 Conjugate, PCV13 (Prevnar 13) Unknown Completed [facility] TDAP Unknown Completed [facility] SARS-COV-2 COVID-19 PFIZER VACCINE Unknown Completed [facility] SARS-COV-2 COVID-19 PFIZER VACCINE Unknown Completed [facility] Influenza Virus Vaccine,quad Im,preserve Free 65+ (FLUAD) Unknown Completed [facility] Pneumococcal Polysaccharide, PPSV23 (PNEUMOVAX) Unknown Completed [facility] Zoster(Zostavax)(Sh ingles) Unknown Completed [facility] Pneumococcal 13 Conjugate, PCV13 (Prevnar 13) Unknown Completed [facility] TDAP Unknown Completed [facility] SARS-COV-2 COVID-19 PFIZER VACCINE Unknown Completed [facility] SARS-COV-2 COVID-19 PFIZER VACCINE Unknown Completed [facility] Influenza Virus Vaccine,quad Im,preserve Free 65+ (FLUAD) Unknown Completed [facility] Pneumococcal Polysaccharide, PPSV23 (PNEUMOVAX) Unknown Completed [facility] Zoster(Zostavax)(Sh ingles) Unknown Completed [facility] Pneumococcal 13 Conjugate, PCV13 (Prevnar 13) Unknown Completed [facility] TDAP Unknown Completed [facility] SARS-COV-2 COVID-19 PFIZER VACCINE Unknown Completed [facility] SARS-COV-2 COVID-19 PFIZER VACCINE Unknown Completed [facility] Influenza Virus Vaccine,quad Im,preserve Free 65+ (FLUAD) Unknown Completed [facility] Pneumococcal Polysaccharide, PPSV23 (PNEUMOVAX) Unknown Completed [facility] Zoster(Zostavax)(Sh ingles) Unknown Completed [facility] Pneumococcal 13 Conjugate, PCV13 (Prevnar 13) Unknown Completed [facility] TDAP Unknown Completed [facility] SARS-COV-2 COVID-19 PFIZER VACCINE Unknown Completed [facility] SARS-COV-2 COVID-19 PFIZER VACCINE Unknown Completed [facility] Influenza Virus Vaccine,quad Im,preserve Free 65+ (FLUAD) Unknown Completed [facility] Pneumococcal Polysaccharide, PPSV23 (PNEUMOVAX) Unknown Completed [facility] Zoster(Zostavax)(Sh ingles) Unknown Completed [facility] Pneumococcal 13 Conjugate, PCV13 (Prevnar 13) Unknown Completed [facility] TDAP Unknown Completed [facility] SARS-COV-2 COVID-19 PFIZER VACCINE Unknown Completed [facility] SARS-COV-2 COVID-19 PFIZER VACCINE Unknown Completed [facility] Influenza Virus Vaccine,quad Im,preserve Free 65+ (FLUAD) Unknown Completed [facility] Pneumococcal Polysaccharide, PPSV23 (PNEUMOVAX) Unknown Completed [facility] Zoster(Zostavax)( ingles) Unknown Completed [facility] Pneumococcal 13 Conjugate, PCV13 (Prevnar 13) Unknown Completed [facility] TDAP Unknown Completed [facility] SARS-COV-2 COVID-19 PFIZER VACCINE Unknown Completed [facility] SARS-COV-2 COVID-19 PFIZER VACCINE Unknown Completed [facility] Influenza Virus Vaccine,quad Im,preserve Free 65+ (FLUAD) Unknown Completed [facility] Pneumococcal Polysaccharide, PPSV23 (PNEUMOVAX) Unknown Completed [facility] Zoster(Zostavax)(Sh ingles) Unknown Completed [facility] Pneumococcal 13 Conjugate, PCV13 (Prevnar 13) Unknown Completed [facility] TDAP Unknown Completed [facility] SARS-COV-2 COVID-19 PFIZER VACCINE Unknown Completed [facility] SARS-COV-2 COVID-19 PFIZER VACCINE Unknown Completed [facility] Influenza Virus Vaccine,quad Im,preserve Free 65+ (FLUAD) Unknown Completed [facility] Pneumococcal Polysaccharide, PPSV23 (PNEUMOVAX) Unknown Completed [facility] Zoster(Zostavax)(Sh ingles) Unknown Completed [facility] Pneumococcal 13 Conjugate, PCV13 (Prevnar 13) Unknown Completed [facility] TDAP Unknown Completed [facility] SARS-COV-2 COVID-19 PFIZER VACCINE Unknown Completed [facility] SARS-COV-2 COVID-19 PFIZER VACCINE Unknown Completed [facility] Influenza Virus Vaccine,quad Im,preserve Free 65+ (FLUAD) Unknown Completed [facility] Pneumococcal Polysaccharide, PPSV23 (PNEUMOVAX) Unknown Completed [facility] Zoster(Zostavax)(Sh ingles) Unknown Completed [facility] Pneumococcal 13 Conjugate, PCV13 (Prevnar 13) Unknown Completed [facility] TDAP Unknown Completed [facility] SARS-COV-2 COVID-19 PFIZER VACCINE Unknown Completed [facility] SARS-COV-2 COVID-19 PFIZER VACCINE Unknown Completed [facility] Influenza Virus Vaccine,quad Im,preserve Free 65+ (FLUAD) Unknown Completed [facility] Pneumococcal Polysaccharide, PPSV23 (PNEUMOVAX) Unknown Completed [facility] Zoster(Zostavax)(Sh ingles) Unknown Completed [facility] Pneumococcal 13 Conjugate, PCV13 (Prevnar 13) Unknown Completed [facility] TDAP Unknown Completed [facility] SARS-COV-2 COVID-19 PFIZER VACCINE Unknown Completed [facility] SARS-COV-2 COVID-19 PFIZER VACCINE Unknown Completed [facility] Influenza Virus Vaccine,quad Im,preserve Free 65+ (FLUAD) Unknown Completed [facility] Pneumococcal Polysaccharide, PPSV23 (PNEUMOVAX) Unknown Completed [facility] Zoster(Zostavax)(Sh ingles) Unknown Completed [facility] Pneumococcal 13 Conjugate, PCV13 (Prevnar 13) Unknown Completed [facility] TDAP Unknown Completed [facility] SARS-COV-2 COVID-19 PFIZER VACCINE Unknown Completed [facility] SARS-COV-2 COVID-19 PFIZER VACCINE Unknown Completed [facility] Influenza Virus Vaccine,quad Im,preserve Free 65+ (FLUAD) Unknown Completed [facility] Pneumococcal Polysaccharide, PPSV23 (PNEUMOVAX) Unknown Completed [facility] Zoster(Zostavax)(Sh ingles) Unknown Completed [facility] Pneumococcal 13 Conjugate, PCV13 (Prevnar 13) Unknown Completed [facility] TDAP Unknown Completed [facility] SARS-COV-2 COVID-19 PFIZER VACCINE Unknown Completed [facility] SARS-COV-2 COVID-19 PFIZER VACCINE Unknown Completed [facility] Influenza Virus Vaccine,quad Im,preserve Free 65+ (FLUAD) Unknown Completed [facility] Pneumococcal Polysaccharide, PPSV23 (PNEUMOVAX) Unknown Completed [facility] Zoster(Zostavax)(Sh ingles) Unknown Completed [facility] Pneumococcal 13 Conjugate, PCV13 (Prevnar 13) Unknown Completed [facility] TDAP Unknown Completed [facility] SARS-COV-2 COVID-19 PFIZER VACCINE Unknown Completed [facility] SARS-COV-2 COVID-19 PFIZER VACCINE Unknown Completed [facility] Influenza Virus Vaccine,quad Im,preserve Free 65+ (FLUAD) Unknown Completed [facility] Pneumococcal Polysaccharide, PPSV23 (PNEUMOVAX) Unknown Completed [facility] Zoster(Zostavax)( ingles) Unknown Completed [facility] Pneumococcal 13 Conjugate, PCV13 (Prevnar 13) Unknown Completed [facility] TDAP Unknown Completed [facility] SARS-COV-2 COVID-19 PFIZER VACCINE Unknown Completed [facility] SARS-COV-2 COVID-19 PFIZER VACCINE Unknown Completed [facility] Influenza Virus Vaccine,quad Im,preserve Free 65+ (FLUAD) Unknown Completed [facility] Pneumococcal Polysaccharide, PPSV23 (PNEUMOVAX) Unknown Completed [facility] Zoster(Zostavax)( ingles) Unknown Completed [facility] Pneumococcal 13 Conjugate, PCV13 (Prevnar 13) Unknown Completed [facility] TDAP Unknown Completed [facility] SARS-COV-2 COVID-19 PFIZER VACCINE Unknown Completed [facility] SARS-COV-2 COVID-19 PFIZER VACCINE Unknown Completed [facility] Influenza Virus Vaccine,quad Im,preserve Free 65+ (FLUAD) Unknown Completed [facility] Pneumococcal Polysaccharide, PPSV23 (PNEUMOVAX) Unknown Completed [facility] Zoster(Zostavax)(Sh ingles) Unknown Completed [facility] Pneumococcal 13 Conjugate, PCV13 (Prevnar 13) Unknown Completed [facility] TDAP Unknown Completed [facility] SARS-COV-2 COVID-19 PFIZER VACCINE Unknown Completed [facility] SARS-COV-2 COVID-19 PFIZER VACCINE Unknown Completed [facility] Influenza Virus Vaccine,quad Im,preserve Free 65+ (FLUAD) Unknown Completed [facility] Pneumococcal Polysaccharide, PPSV23 (PNEUMOVAX) Unknown Completed [facility] Zoster(Zostavax)(Sh ingles) Unknown Completed [facility] Pneumococcal 13 Conjugate, PCV13 (Prevnar 13) Unknown Completed [facility] TDAP Unknown Completed [facility] SARS-COV-2 COVID-19 PFIZER VACCINE Unknown Completed [facility] SARS-COV-2 COVID-19 PFIZER VACCINE Unknown Completed [facility] Influenza Virus Vaccine,quad Im,preserve Free 65+ (FLUAD) Unknown Completed [facility] Pneumococcal Polysaccharide, PPSV23 (PNEUMOVAX) Unknown Completed [facility] Zoster(Zostavax)( ingles) Unknown Completed [facility] Pneumococcal 13 Conjugate, PCV13 (Prevnar 13) Unknown Completed [facility] TDAP Unknown Completed [facility] SARS-COV-2 COVID-19 PFIZER VACCINE Unknown Completed [facility] SARS-COV-2 COVID-19 PFIZER VACCINE Unknown Completed [facility] Influenza Virus Vaccine,quad Im,preserve Free 65+ (FLUAD) Unknown Completed [facility] Pneumococcal Polysaccharide, PPSV23 (PNEUMOVAX) Unknown Completed [facility] Zoster(Zostavax)( ingles) Unknown Completed [facility] Pneumococcal 13 Conjugate, PCV13 (Prevnar 13) Unknown Completed [facility] TDAP Unknown Completed [facility] SARS-COV-2 COVID-19 PFIZER VACCINE Unknown Completed [facility] SARS-COV-2 COVID-19 PFIZER VACCINE Unknown Completed [facility] Influenza Virus Vaccine,quad Im,preserve Free 65+ (FLUAD) Unknown Completed [facility] Pneumococcal Polysaccharide, PPSV23 (PNEUMOVAX) Unknown Completed [facility] Zoster(Zostavax)(Sh ingles) Unknown Completed [facility] Pneumococcal 13 Conjugate, PCV13 (Prevnar 13) Unknown Completed [facility] TDAP Unknown Completed [facility] SARS-COV-2 COVID-19 PFIZER VACCINE Unknown Completed [facility] SARS-COV-2 COVID-19 PFIZER VACCINE Unknown Completed [facility] Influenza Virus Vaccine,quad Im,preserve Free 65+ (FLUAD) Unknown Completed [facility] Pneumococcal Polysaccharide, PPSV23 (PNEUMOVAX) Unknown Completed [facility] Zoster(Zostavax)(Sh ingles) Unknown Completed [facility] Pneumococcal 13 Conjugate, PCV13 (Prevnar 13) Unknown Completed [facility] TDAP Unknown Completed [facility] SARS-COV-2 COVID-19 PFIZER VACCINE Unknown Completed [facility] SARS-COV-2 COVID-19 PFIZER VACCINE Unknown Completed [facility] Influenza Virus Vaccine,quad Im,preserve Free 65+ (FLUAD) Unknown Completed [facility] Vital Signs Vital Name Observation Time Observation Value Comments S ource Systolic blood pressure 2024-02-15 19:20:00 122 mm[Hg] [facility] Diastolic blood pressure 2024-02-15 19:20:00 73 mm[Hg] [facility] Heart rate 2024-02-15 19:20:00 66 /min [facility] Body temperature 2024-02-15 19:20:00 36 Chen [facility] Respiratory rate 2024-02-15 19:20:00 20 /min [facility] Body weight 2024-02-15 19:20:00 78.744 kg [facility] BMI 2024-02-15 19:20:00 26.40 kg/m2 [facility] Oxygen saturation in Arterial blood by Pulse oximetry 2024-02-15 19:20:00 94 /min [facility] Systolic blood pressure 2024-01-25 19:17:00 116 mm[Hg] [facility] Diastolic blood pressure 2024-01-25 19:17:00 64 mm[Hg] [facility] Heart rate 2024-01-25 19:17:00 63 /min [facility] Body temperature 2024-01-25 19:17:00 36.83 Chen [facility] Body height 2024-01-25 19:17:00 172.7 cm [facility] Body weight 2024-01-25 19:17:00 79.47 kg [facility] BMI 2024-01-25 19:17:00 26.64 kg/m2 [facility] Oxygen saturation in Arterial blood by Pulse oximetry 2024-01-25 19:17:00 97 /min [facility] Systolic blood pressure 2024-01-19 19:49:00 120 mm[Hg] [facility] Diastolic blood pressure 2024-01-19 19:49:00 65 mm[Hg] [facility] Heart rate 2024-01-19 19:49:00 64 /min [facility] Respiratory rate 2024-01-19 19:49:00 19 /min [facility] Body height 2024-01-19 19:49:00 172.7 cm [facility] Body weight 2024-01-19 19:49:00 78.699 kg [facility] BMI 2024-01-19 19:49:00 26.38 kg/m2 [facility] Oxygen saturation in Arterial blood by Pulse oximetry 2024-01-19 19:49:00 97 /min [facility] Systolic blood pressure 2024-01-11 20:52:00 113 mm[Hg] [facility] Diastolic blood pressure 2024-01-11 20:52:00 63 mm[Hg] [facility] Heart rate 2024-01-11 20:52:00 67 /min [facility] Body temperature 2024-01-11 20:52:00 36.94 Chen [facility] Respiratory rate 2024-01-11 20:52:00 20 /min [facility] Body height 2024-01-11 20:52:00 172.7 cm [facility] Body weight 2024-01-11 20:52:00 78.472 kg [facility] BMI 2024-01-11 20:52:00 26.30 kg/m2 [facility] Oxygen saturation in Arterial blood by Pulse oximetry 2024-01-11 20:52:00 97 /min [facility] Systolic blood pressure 2024-01-11 13:18:00 118 mm[Hg] [facility] Diastolic blood pressure 2024-01-11 13:18:00 65 mm[Hg] [facility] Heart rate 2024-01-11 13:18:00 64 /min [facility] Body temperature 2024-01-11 13:18:00 36.67 Chen [facility] Respiratory rate 2024-01-11 13:18:00 20 /min [facility] Body height 2024-01-11 13:18:00 172.7 cm [facility] Body weight 2024-01-11 13:18:00 78.472 kg [facility] BMI 2024-01-11 13:18:00 26.30 kg/m2 [facility] Oxygen saturation in Arterial blood by Pulse oximetry 2024-01-11 13:18:00 97 /min [facility] Systolic blood pressure 2024-01-09 17:41:00 100 mm[Hg] [facility] Diastolic blood pressure 2024-01-09 17:41:00 63 mm[Hg] [facility] Heart rate 2024-01-09 17:41:00 72 /min [facility] Respiratory rate 2024-01-09 17:41:00 18 /min [facility] Body height 2024-01-09 17:41:00 172.7 cm [facility] Body weight 2024-01-09 17:41:00 77.338 kg [facility] BMI 2024-01-09 17:41:00 25.92 kg/m2 [facility] Oxygen saturation in Arterial blood by Pulse oximetry 2024-01-09 17:41:00 97 /min [facility] Systolic blood pressure 2024-01-04 17:56:00 121 mm[Hg] [facility] Diastolic blood pressure 2024-01-04 17:56:00 73 mm[Hg] [facility] Heart rate 2024-01-04 17:56:00 64 /min [facility] Body temperature 2024-01-04 17:56:00 36.28 Chen [facility] Respiratory rate 2024-01-04 17:56:00 20 /min [facility] Body weight 2024-01-04 17:56:00 77.565 kg [facility] BMI 2024-01-04 17:56:00 26.00 kg/m2 [facility] Oxygen saturation in Arterial blood by Pulse oximetry 2024-01-04 17:56:00 98 /min [facility] Systolic blood pressure 2023-12-27 19:20:00 125 mm[Hg] [facility] Diastolic blood pressure 2023-12-27 19:20:00 70 mm[Hg] [facility] Heart rate 2023-12-27 19:20:00 60 /min [facility] Body temperature 2023-12-27 19:20:00 35.89 Chen [facility] Respiratory rate 2023-12-27 19:20:00 18 /min [facility] Body height 2023-12-27 19:20:00 172.7 cm [facility] Body weight 2023-12-27 19:20:00 69.967 kg [facility] BMI 2023-12-27 19:20:00 23.45 kg/m2 [facility] Oxygen saturation in Arterial blood by Pulse oximetry 2023-12-27 19:20:00 99 /min [facility] Systolic blood pressure 2023-12-26 19:41:00 152 mm[Hg] [facility] Diastolic blood pressure 2023-12-26 19:41:00 80 mm[Hg] [facility] Heart rate 2023-12-26 19:41:00 54 /min [facility] Respiratory rate 2023-12-26 19:38:00 21 /min [facility] Body height 2023-12-26 19:38:00 172.7 cm [facility] Body weight 2023-12-26 19:38:00 76.476 kg [facility] BMI 2023-12-26 19:38:00 25.64 kg/m2 Univ [facility] Oxygen saturation in Arterial blood by Pulse oximetry 2023-12-26 19:38:00 98 /min [facility] Heart rate 2023-12-20 19:00:00 87 /min Unive [facility] Respiratory rate 2023-12-20 19:00:00 20 /min [facility] Oxygen saturation in Arterial blood by Pulse oximetry 2023-12-20 19:00:00 97 /min [facility] Systolic blood pressure 2023-12-20 17:59:00 165 mm[Hg] [facility] Diastolic blood pressure 2023-12-20 17:59:00 95 mm[Hg] [facility] Body temperature 2023-12-20 17:59:00 37 Chen [facility] Body height 2023-12-20 17:59:00 172.7 cm [facility] Body weight 2023-12-20 17:59:00 79.379 kg [facility] BMI 2023-12-20 17:59:00 26.61 kg/m2 [facility] Heart rate 2023-12-12 13:32:00 70 /min Unive [facility] Respiratory rate 2023-12-12 13:32:00 14 /min [facility] Oxygen saturation in Arterial blood by Pulse oximetry 2023-12-12 13:32:00 99 /min [facility] Systolic blood pressure 2023-12-12 13:25:00 140 mm[Hg] [facility] Diastolic blood pressure 2023-12-12 13:25:00 76 mm[Hg] [facility] Body temperature 2023-12-12 13:05:00 36.22 Chen [facility] Body weight 2023-12-12 11:46:00 78.019 kg [facility] BMI 2023-12-12 11:46:00 26.15 kg/m2 [facility] Body height 2023-11-27 20:00:00 172.7 cm [facility] Systolic blood pressure 2023-12-12 13:20:00 142 mm[Hg] [facility] Diastolic blood pressure 2023-12-12 13:20:00 71 mm[Hg] [facility] Heart rate 2023-12-12 13:20:00 74 /min Unive [facility] Respiratory rate 2023-12-12 13:20:00 19 /min [facility] Oxygen saturation in Arterial blood by Pulse oximetry 2023-12-12 13:20:00 97 /min [facility] Body temperature 2023-12-12 13:05:00 36.22 Chen [facility] Body weight 2023-12-12 11:46:00 78.019 kg [facility] BMI 2023-12-12 11:46:00 26.15 kg/m2 [facility] Body height 2023-11-27 20:00:00 172.7 cm [facility] Systolic blood pressure 2023-11-28 18:34:00 122 mm[Hg] [facility] Diastolic blood pressure 2023-11-28 18:34:00 70 mm[Hg] [facility] Heart rate 2023-11-28 18:34:00 69 /min [facility] Respiratory rate 2023-11-28 18:34:00 20 /min [facility] Body height 2023-11-28 18:34:00 172.7 cm [facility] Body weight 2023-11-28 18:34:00 79.379 kg [facility] BMI 2023-11-28 18:34:00 26.61 kg/m2 [facility] Oxygen saturation in Arterial blood by Pulse oximetry 2023-11-28 18:34:00 96 /min [facility] Systolic blood pressure 2023-11-16 20:37:00 134 mm[Hg] [facility] Diastolic blood pressure 2023-11-16 20:37:00 67 mm[Hg] [facility] Heart rate 2023-11-16 20:37:00 67 /min [facility] Respiratory rate 2023-11-16 20:37:00 20 /min [facility] Body height 2023-11-16 20:37:00 172.7 cm Univ [facility] Body weight 2023-11-16 20:37:00 78.019 kg [facility] BMI 2023-11-16 20:37:00 26.15 kg/m2 [facility] Oxygen saturation in Arterial blood by Pulse oximetry 2023-11-16 20:37:00 96 /min [facility] Systolic blood pressure 2023-11-08 20:51:00 157 mm[Hg] [facility] Diastolic blood pressure 2023-11-08 20:51:00 78 mm[Hg] [facility] Heart rate 2023-11-08 20:49:00 59 /min Unive [facility] Body temperature 2023-11-08 20:49:00 36.44 Chen [facility] Respiratory rate 2023-11-08 20:49:00 18 /min [facility] Body height 2023-11-08 20:49:00 172.7 cm [facility] Body weight 2023-11-08 20:49:00 77.883 kg [facility] BMI 2023-11-08 20:49:00 26.11 kg/m2 [facility] Oxygen saturation in Arterial blood by Pulse oximetry 2023-11-08 20:49:00 96 /min [facility] Systolic blood pressure 2023-10-25 20:44:00 152 mm[Hg] [facility] Diastolic blood pressure 2023-10-25 20:44:00 77 mm[Hg] [facility] Heart rate 2023-10-25 20:44:00 56 /min Unive [facility] Body temperature 2023-10-25 20:44:00 36.44 Chen [facility] Body weight 2023-10-25 20:44:00 78.019 kg [facility] BMI 2023-10-25 20:44:00 26.15 kg/m2 [facility] Oxygen saturation in Arterial blood by Pulse oximetry 2023-10-25 20:44:00 96 /min [facility] Systolic blood pressure 2023-10-25 20:17:00 152 mm[Hg] [facility] Diastolic blood pressure 2023-10-25 20:17:00 77 mm[Hg] [facility] Heart rate 2023-10-25 20:17:00 56 /min Unive [facility] Body temperature 2023-10-25 20:17:00 36.44 Chen [facility] Body height 2023-10-25 20:17:00 172.7 cm [facility] Body weight 2023-10-25 20:17:00 78.291 kg [facility] BMI 2023-10-25 20:17:00 26.24 kg/m2 [facility] Oxygen saturation in Arterial blood by Pulse oximetry 2023-10-25 20:17:00 96 /min [facility] Systolic blood pressure 2023-03-28 16:18:00 144 mm[Hg] [facility] Diastolic blood pressure 2023-03-28 16:18:00 69 mm[Hg] [facility] Heart rate 2023-03-28 16:18:00 60 /min Unive [facility] Respiratory rate 2023-03-28 16:18:00 17 /min [facility] Body height 2023-03-28 16:18:00 172.7 cm [facility] Body weight 2023-03-28 16:18:00 82.583 kg [facility] BMI 2023-03-28 16:18:00 27.68 kg/m2 [facility] Oxygen saturation in Arterial blood by Pulse oximetry 2023-03-28 16:18:00 98 /min [facility] Systolic blood pressure 2023-02-01 15:36:00 138 mm[Hg] [facility] Diastolic blood pressure 2023-02-01 15:36:00 76 mm[Hg] [facility] Heart rate 2023-02-01 15:36:00 63 /min Unive [facility] Body height 2023-02-01 15:36:00 172.7 cm [facility] Body weight 2023-02-01 15:36:00 81.784 kg [facility] BMI 2023-02-01 15:36:00 27.41 kg/m2 [facility] Oxygen saturation in Arterial blood by Pulse oximetry 2023-02-01 15:36:00 96 /min [facility] Systolic blood pressure 2022-11-15 15:43:00 146 mm[Hg] [facility] Diastolic blood pressure 2022-11-15 15:43:00 81 mm[Hg] [facility] Heart rate 2022-11-15 15:43:00 69 /min Unive [facility] Oxygen saturation in Arterial blood by Pulse oximetry 2022-11-15 15:43:00 96 /min [facility] Respiratory rate 2022-11-15 15:42:00 19 /min [facility] Body height 2022-11-15 15:42:00 172.7 cm [facility] Body weight 2022-11-15 15:42:00 78.382 kg [facility] BMI 2022-11-15 15:42:00 26.27 kg/m2 [facility] Systolic blood pressure 2022-06-14 17:06:00 136 mm[Hg] [facility] Diastolic blood pressure 2022-06-14 17:06:00 75 mm[Hg] [facility] Heart rate 2022-06-14 17:06:00 57 /min Unive [facility] Respiratory rate 2022-06-14 17:06:00 18 /min [facility] Body height 2022-06-14 17:06:00 172.7 cm [facility] Body weight 2022-06-14 17:06:00 77.622 kg [facility] BMI 2022-06-14 17:06:00 26.02 kg/m2 [facility] Oxygen saturation in Arterial blood by Pulse oximetry 2022-06-14 17:06:00 99 /min [facility] Systolic blood pressure 2022-03-11 16:34:00 136 mm[Hg] [facility] Diastolic blood pressure 2022-03-11 16:34:00 74 mm[Hg] [facility] Heart rate 2022-03-11 16:34:00 76 /min Unive [facility] Respiratory rate 2022-03-11 16:34:00 19 /min [facility] Body height 2022-03-11 16:34:00 172.7 cm [facility] Body weight 2022-03-11 16:34:00 73.347 kg [facility] BMI 2022-03-11 16:34:00 24.59 kg/m2 [facility] Oxygen saturation in Arterial blood by Pulse oximetry 2022-03-11 16:34:00 93 /min RA [facility] Systolic blood pressure 2022-02-01 19:43:00 151 mm[Hg] [facility] Diastolic blood pressure 2022-02-01 19:43:00 80 mm[Hg] [facility] Heart rate 2022-02-01 19:43:00 68 /min Unive [facility] Respiratory rate 2022-02-01 19:43:00 18 /min [facility] Oxygen saturation in Arterial blood by Pulse oximetry 2022-02-01 19:43:00 95 /min [facility] Body temperature 2022-02-01 19:42:00 36.83 Chen [facility] Body height 2022-02-01 19:42:00 172.7 cm [facility] Body weight 2022-02-01 19:42:00 75.206 kg [facility] BMI 2022-02-01 19:42:00 25.21 kg/m2 [facility] Systolic blood pressure 2024-01-25 19:17:00 116 mm[Hg] [facility] Diastolic blood pressure 2024-01-25 19:17:00 64 mm[Hg] [facility] Heart rate 2024-01-25 19:17:00 63 /min [facility] Body temperature 2024-01-25 19:17:00 36.83 Chen [facility] Body height 2024-01-25 19:17:00 172.7 cm [facility] Body weight 2024-01-25 19:17:00 79.47 kg [facility] BMI 2024-01-25 19:17:00 26.64 kg/[address] Oxygen saturation in Arterial blood by Pulse oximetry 2024-01-25 19:17:00 97 /min [place] [facility] Respiratory rate 2024-01-19 19:49:00 19 /min [facility] Procedures Procedure Date / Time Performed Performing Clinician Source NM MYOCARDIUM PERFUSION STRESS AND REST 2024-02-01 17:01:[address] [facility] MYOCARDIUM PERFUSION STRESS AND REST 2024-02-01 17:01:[address] [facility] MYOCARDIUM PERFUSION STRESS AND REST 2024-02-01 17:01:[address] [facility] MYOCARDIUM PERFUSION STRESS AND REST 2024-02-01 17:01:00 Quinonez [facility] TRANSTHORACIC ECHO (TTE) COMPLETE W/ CONTRAST 2024-01-30 14:42:00 [facility] TRANSTHORACIC ECHO (TTE) COMPLETE W/ CONTRAST 2024-01-30 14:42:00 Quinonez [facility] CBC WITH DIFF 2024-01-30 13:55:00 Sean [facility] COMP. METABOLIC PANEL (58554) 2024-01-30 13:55:00 Sean [facility] HB ABO GROUPING 2024-01-30 13:55:00 Sean [facility] DME/SUPPLY JUSTIFICATION 2024-01-26 21:02:43 Doc tor Unassigned, [place] [facility] CAROTID DUPLEX BILATERAL - BY VASCULAR LAB 2024-01-25 14:27:54 Ivania Viola [facility] CAROTID DUPLEX BILATERAL - BY VASCULAR LAB 2024-01-25 14:27:54 Ivania [facility] CBC WITH DIFF 2024-01-25 13:31:00 [facility] LIPID PANEL (33708)(TOTAL CHOLESTEROL, TRIGLYCERIDES, HDL) 2024-01-25 13:31:00 Vivian Cloud [facility] THYROID STIMULATING HORMONE 2024-01-25 13:31:00 Vivian Cloud [facility] GLYCOSYLATED HEMOGLOBIN (A1C) 2024-01-25 13:31:00 Maki Obregon [facility] HB ECG ROUTINE & RHYTHM STRIP 2024-01-19 19:42:56 Devi Noemi [facility] HB ECG ROUTINE & RHYTHM STRIP 2024-01-19 19:42:56 Devi [facility] URINE CULTURE 2024-01-04 18:28:00 Federico Hyatt [facility] OTF,POST-VOID RES,US,NON-IMAGING 2023-12-27 00:00:00 Olena [facility] POCT URINALYSIS AUTO 2023-12-27 00:00:00 Abelardo [facility] OTF,POST-VOID RES,US,NON-IMAGING 2023-12-27 00:00:00 Olena [facility] POCT URINALYSIS AUTO 2023-12-27 00:00:00 [facility] 2023-12-20 19:56:45 Mamta Wilder [facility] CT THORAX W CONTRAST 2023-12-20 19:56:45 Mamta Wilder [facility] CT ABDOMEN PELVIS W CONTRAST 2023-12-20 19:55:52 [facility] 2023-12-20 19:55:52 Giovanna Wilder [facility] HB CREATININE SERUM/BLOOD FOR IMAGING 2023-12-20 19:38:00 Giovanna Wilder [facility] HB CREATININE SERUM/BLOOD FOR IMAGING 2023-12-20 19:38:00 Giovanna Wilder [facility] MR BRAIN WO CONTRAST WITH NEUROQUANT 2023-12-15 21:26:54 Juanito Holley [facility] MR BRAIN WO CONTRAST WITH NEUROQUANT 2023-12-15 21:26:54 Juanito Holley [facility] CREATININE 2023-12-12 14:08:00 Giovanna Wilder [facility] CARCINOEMBRYONIC ANTIGEN 2023-12-12 14:08:00 Giovanna Wilder [facility] CARCINOEMBRYONIC ANTIGEN 2023-12-12 14:08:00 Giovanna Wilder [facility] CREATININE 2023-12-12 14:08:00 [facility] 2023-12-12 13:45:00 Giovanna Wilder [facility] POCT GLUCOSE (AUTOMATED) 2023-12-12 13:45:00 Giovanna Wilder [facility] POCT GLUCOSE (AUTOMATED) 2023-12-12 13:45[facility]00 [facility] 2023-12-12 13:28:22 Adrian Obregon [facility] COLONOSCOPY (ENDO) 2023-12-12 13:28:22 Adrian Obregon [facility] COLONOSCOPY (ENDO) 2023-12-12 13:28:22 Adrian Obregon [facility] SURGICAL PATHOLOGY EXAM 2023-12-12 12:44:00 Meño [facility] COLONOSCOPY 2023-12-12 12:17:00 [facility] 2023-12-12 12:17:00 [facility]SE (AUTOMATED) 2023-12-12 11:55:00 Giovanna Wilder [facility] POCT GLUCOSE (AUTOMATED) 2023-12-12 11:55:00 [facility] ([facility]ATED) 2023-12-12 11:55:00 [facility] ABDOMINAL AORTA SCREEN AAA 2023-11-08 20:14:54 Maki Obregon [facility] HCV ANTIBODY 2023-10-26 14:30:00 Maki Obregon [facility] MICROALBUMIN URINE 2023-10-25 21:20:00 Adrian Obregon [facility] MEDICAL RELEASE/CLEARANCE FORMS 2023-04-17 06:01:00 Doctor Unassigned, [place] [facility] DME/SUPPLY JUSTIFICATION 2023-03-28 05:01:00 Doc tor Unassigned, [place] [facility] CONSENT/REFUSAL FOR DIAGNOSIS AND TREATMENT 2023-02-01 15:24:00 Doctor Unassigned, [place] [facility] EXTERNAL PROVIDER - ADC CARDIOLOGY 2022-12-16 05:01:00 Doctor Unassigned, [place] [facility] EXTERNAL PROVIDER - ADC REFERRAL 2022-12-01 05:01:00 Doctor Unassigned, [place] [facility] CT LUNG CANCER SCREENING 2022-06-21 19:18:21 Félix Parra [facility] FLU VACC(),65+YR,0.5 ML,IM,ADJUVANTED,QUAD(FLUA D) 2022-06-14 17:11:31 Viktoria Warren [facility] DME/SUPPLY JUSTIFICATION 2022-03-29 05:01:00 Doc gregory Unassigned, [place] [facility] DME/SUPPLY JUSTIFICATION 2022-03-11 05:01:00 Doc gregory Unassigned, [place] [facility] Encounters Start Date/Time End Date/Time Encounter Type Admission Type Attending Clinicians Care Facility Care Department Encounter ID Source 2024-01-12 07:30:29 Inpatient STEPHANIE LEAL PAMELA [facility] TIFFANI [id number] General acute hospital 2025-01-15 14:20:00 2025-01-15 14:20:00 Outpatient PAUL NAVARRO [facility] [id number] General acute hospital 2024-04-23 13:00:00 2024-04-23 13:00:00 Outpatient VIKTORIA COUGHLIN SHIWAN [facility] [id number] General acute hospital 2024-02-20 11:00:00 2024-02-20 11:00:00 Outpatient NOEMI ROSS [facility] [id number] General acute hospital 2024-02-15 14:45:00 2024-02-15 15:44:10 Outpatient STEPHANIE LEAL PAMELA [facility] [id number] General acute hospital 2024-02-15 14:45:00 2024-02-15 15:44:10 Office Visit Stephanie Estrada [facility] 1.2.840.114 350.1.13.10 4.2.7.2.686 [id number] General acute hospital 2024-01-31 00:00:00 2024-02-15 14:34:50 Telephone Timmy Maddox Sherretta L [facility] 1.2.840.114 350.1.13.10 4.2.7.2.686 [id number] General acute hospital 2024-02-15 14:00:00 2024-02-15 14:15:00 Helper Electrical Visit 2, [facility] Stephanie Estrada 2, Adc Lab [facility] 1.2.840.114 350.1.13.10 4.2.7.2.686 [id number] General acute hospital 2024-02-13 00:00:00 2024-02-13 14:54:45 Telephone Noemí Knowles [facility] 1.2.840.114 350.1.13.10 4.2.7.2.686 [id number] General acute hospital 2024-02-06 00:00:00 2024-02-06 13:23:58 Telephone Noemi Quinonez [facility] 1.2.840.114 350.1.13.10 4.2.7.2.686 [id number] General acute hospital 2024-02-06 00:00:00 2024-02-06 09:29:26 Telephone Noemi Quinonez [facility] 1.2.840.114 350.1.13.10 4.2.7.2.686 [id number] General acute hospital 2024-02-02 00:00:00 2024-02-02 14:34:23 Refill Gisela Thakkarghislainenacho [facility] 1.2.840.114 350.1.13.10 4.2.7.2.686 [id number] General acute hospital 2024-02-01 08:37:03 2024-02-01 23:59:00 Hospital Encounter Noemi Quinonez [facility] 1.2.840.114 350.1.13.10 4.2.7.2.686 [id number] General acute hospital 2024-02-01 00:00:00 2024-02-01 15:23:52 Telephone Awilda Galindo Sudha [facility] 1.2.840.114 350.1.13.10 4.2.7.2.686 [id number] General acute hospital 2024-02-01 08:36:46 2024-02-01 08:36:46 Hospital Encounter QuinonezNoemi nam [facility] 1.2.840.114 350.1.13.10 4.2.7.2.686 [id number] General acute hospital 2024-02-01 08:36:25 2024-02-01 08:36:25 Hospital Encounter Noemi Quinonez [facility] 1.2.840.114 350.1.13.10 4.2.7.2.686 [id number] General acute hospital 2024-02-01 08:36:05 2024-02-01 08:36:05 Hospital Encounter Noemi Quinonez [facility] 1.2.840.114 350.1.13.10 4.2.7.2.686 [id number] General acute hospital 2024-02-01 08:36:04 2024-02-01 08:36:05 Outpatient R DEVI NOEMI [facility] [id number] General acute hospital 2024-01-31 09:00:00 2024-01-31 09:00:00 Outpatient NOEMI ROSS [facility] [id number] General acute hospital 2024-01-30 00:00:00 2024-01-31 06:32:53 Telephone Stephanie Estrada [facility] 1.2840.114 350.1.13.10 4.2.7.2.686 [id number] General acute hospital 2024-01-30 09:09:22 2024-01-30 23:59:00 Hospital Encounter Noemi Quinonez 1.2.840.1 [id number] 3.104.2.7 .3.854156 .8 [id number] General acute hospital 2024-01-30 08:30:00 2024-01-30 08:38:33 Helper Electrical Visit Paul Thakkar 2, [facility] 1.2.840.1 83761.1.1 3.104.2.7 .3.505511 .8 [id number] General acute hospital 2024-01-30 00:00:00 2024-01-30 00:00:00 Patient Secure Msg Doctor Unassigned, [place] 1.2.840.1 97578.1.1 3.104.2.7 .3.940854 .8 [id number] General acute hospital 2024-01-30 00:00:00 2024-01-30 00:00:00 Travel 1.2.840.1 [id number] 3.104.2.7 .3.265778 .8 1.2.840.114 350.1.13.10 4.2.7.3.698 [id number] General acute hospital 2024-01-29 00:00:00 2024-01-29 00:00:00 Scanned Documents Doctor Unassigned, [place] 1.2.840.1 84548.1.1 3.104.2.7 .3.571964 .8 [id number] General acute hospital 2024-01-29 00:00:00 2024-01-29 00:00:00 Scanned Documents Doctor Unassigned, [place] 1.2.840.1 77422.1.1 3.104.2.7 .3.547372 .8 [id number] General acute hospital 2024-01-17 00:00:00 2024-01-26 11:57:03 Patient Secure Msg Doctor Unassigned, [place] 1.2.840.1 50617.1.1 3.104.2.7 .3.850868 .8 [id number] General acute hospital 2024-01-26 00:00:00 2024-01-26 00:00:00 Orders Only Doctor Unassigned, [place] 1.2.840.1 24536.1.1 3.104.2.7 .3.642384 .8 [id number] General acute hospital 2024-01-25 08:20:56 2024-01-25 23:59:00 Outpatient R HOLGER SOLOMON [facility] [id number] General acute hospital 2024-01-25 08:20:56 2024-01-25 23:59:00 Hospital Encounter Holger Solomon 1.2.840.1 53048.1.1 3.104.2.7 .3.217396 .8 [id number] General acute hospital 2024-01-25 15:15:00 2024-01-25 15:55:02 Office Visit Holger Solomon 1.2.840.1 06997.1.1 3.104.2.7 .3.804556 .8 [id number] General acute hospital 2024-01-25 14:45:00 2024-01-25 15:54:55 Office Visit Stephanie Estrada 1.2.840.1 29140.1.1 3.104.2.7 .3.252679 .8 [id number] General acute hospital 2024-01-25 08:30:00 2024-01-25 08:45:00 Helper Electrical Visit Holger Solomon, Vivian Figueroa, [facility] Main 1.2.840.1 [id number] 3.104.2.7 .3.217382 .8 [id number] General acute hospital 2024-01-25 00:00:00 2024-01-25 00:00:00 Travel 1.2.840.1 [id number] 3.104.2.7 .3.908931 .8 1.2.840.114 350.1.13.10 4.2.7.3.698 [id number] General acute hospital 2024-01-23 00:00:00 2024-01-23 00:00:00 Travel 1.2.840.1 09120.1.1 3.104.2.7 .3.290369 .8 1.2.840.114 350.1.13.10 4.2.7.3.698 [id number] General acute hospital 2024-01-19 14:30:00 2024-01-19 15:41:26 Outpatient R NOEMI QUINONEZ [facility] [id number] General acute hospital 2024-01-19 14:30:00 2024-01-19 15:41:26 Office Visit Noemi Quinonez [facility] 1.2.840.114 350.1.13.10 4.2.7.2.686 [id number] General acute hospital 2024-01-19 00:00:00 2024-01-19 00:00:00 Travel 1.2.840.1 71366.1.1 3.104.2.7 .3.084973 .8 1.2.840.114 350.1.13.10 4.2.7.3.698 [id number] General acute hospital 2024-01-17 15:30:00 2024-01-17 15:30:00 Outpatient R NOEMI QUINONEZ [facility] [id number] General acute hospital 2024-01-17 14:30:00 2024-01-17 14:30:00 Outpatient R [facility] [id number] General acute hospital 2024-01-16 15:30:00 2024-01-16 15:30:00 Outpatient R [facility] [id number] General acute hospital 2024-01-11 16:00:00 2024-01-11 16:42:10 Office Visit Holger Solomon 1.2.840.1 96740.1.1 3.104.2.7 .3.838842 .8 [id number] General acute hospital 2024-01-11 08:30:00 2024-01-11 09:05:44 Outpatient R STEPHANIE ESTRADA PAMELA [facility] [id number] General acute hospital 2024-01-11 08:30:00 2024-01-11 09:05:44 Office Visit Stephanie Estrada 1.2.840.1 61992.1.1 3.104.2.7 .3.947061 .8 [id number] General acute hospital 2024-01-11 00:00:00 2024-01-11 00:00:00 Travel 1.2.840.1 35231.1.1 3.104.2.7 .3.469302 .8 1.2.840.114 350.1.13.10 4.2.7.3.698 084.8 [id number] General acute hospital 2024-01-10 00:00:00 2024-01-10 00:00:00 Viktoria Curry 1.2.840.1 57471.1.1 3.104.2.7 .3.146527 .8 [id number] General acute hospital 2024-01-09 12:40:00 2024-01-09 13:57:47 Outpatient R JUANITO HOLLEY HOWARD [facility] [id number] General acute hospital 2024-01-09 12:40:00 2024-01-09 13:57:47 Office Visit Juanito Holley Gene 1.2.840.1 25231.1.1 3.104.2.7 .3.646965 .8 [id number] General acute hospital 2024-01-09 00:00:00 2024-01-09 00:00:00 Travel 1.2.840.1 71064.1.1 3.104.2.7 .3.682427 .8 1.2.840.114 350.1.13.10 4.2.7.3.698 084.8 [id number] General acute hospital 2024-01-04 11:30:00 2024-01-04 13:39:33 Helper Electrical Visit Giovanna Wilder 2, Adc Lab 1.2.840.1 59782.1.1 3.104.2.7 .3.252211 .8 [id number] General acute hospital 2024-01-04 13:00:00 2024-01-04 13:19:04 Outpatient R GIOVANNA WILDER [facility] [id number] General acute hospital 2024-01-04 13:00:00 2024-01-04 13:19:04 Office Visit Giovanna Wilder 1.2.840.1 29444.1.1 3.104.2.7 .3.668541 .8 [id number] General acute hospital 2024-01-04 00:00:00 2024-01-04 00:00:00 Orders Only [place] 1.2.840.1 32886.1.1 3.104.2.7 .3.561213 .8 [id number] General acute hospital 2024-01-04 00:00:00 2024-01-04 00:00:00 Travel 1.2.840.1 79967.1.1 3.104.2.7 .3.812299 .8 1.2.840.114 350.1.13.10 4.2.7.3.698 084.8 [id number] General acute hospital 2023-12-29 00:00:00 2024-01-02 09:53:41 Telephone Federico Hyatt 1.2.840.1 76984.1.1 3.104.2.7 .3.219245 .8 [id number] General acute hospital 2024-01-01 00:00:00 2024-01-01 16:12:52 Telephone Federico Hyatt 1.2.840.1 46303.1.1 3.104.2.7 .3.137130 .8 [id number] General acute hospital 2023-12-27 14:15:00 2023-12-27 14:47:23 Outpatient R FEDERICO HYATT [facility] [id number] General acute hospital 2023-12-27 14:15:00 2023-12-27 14:47:23 Office Visit Federico Hyatt 1.2.840.1 94926.1.1 3.104.2.7 .3.605018 .8 [id number] General acute hospital 2023-12-26 14:30:00 2023-12-26 15:00:19 Outpatient R VIKTORIA WARREN SHIWAN [facility] [id number] General acute hospital 2023-12-26 14:30:00 2023-12-26 15:00:19 Office Visit Viktoria Warren 1.2.840.1 57220.1.1 3.104.2.7 .3.185037 .8 [id number] General acute hospital 2023-12-26 00:00:00 2023-12-26 00:00:00 Travel 1.2.840.1 72943.1.1 3.104.2.7 .3.587606 .8 1.2.840.114 350.1.13.10 4.2.7.3.698 084.8 [id number] General acute hospital 2023-12-20 14:11:59 2023-12-20 23:59:00 Hospital Encounter WilderJ Luis averyel 1.2.840.1 53840.1.1 3.104.2.7 .3.622479 .8 [id number] General acute hospital 2023-12-20 14:11:41 2023-12-20 23:59:00 Outpatient R GIOVANNA WILDER [facility] [id number] General acute hospital 2023-12-20 14:11:41 2023-12-20 23:59:00 Hospital Encounter MeñoJ Luisel 1.2.840.1 85267.1.1 3.104.2.7 .3.050803 .8 [id number] General acute hospital 2023-12-20 13:00:00 2023-12-20 14:09:00 Emergency X NICO WEAVER DONNELL [facility] ERT [id number] General acute hospital 2023-12-20 13:00:00 2023-12-20 14:09:00 Emergency Nico Weaver 1.2.840.1 80984.1.1 3.104.2.7 .3.702145 .8 [id number] General acute hospital 2023-12-20 00:00:00 2023-12-20 00:00:00 Travel 1.2.840.1 82182.1.1 3.104.2.7 .3.239947 .8 1.2.840.114 350.1.13.10 4.2.7.3.698 084.8 [id number] General acute hospital 2023-12-19 14:00:00 2023-12-19 14:00:00 Outpatient R VIVIAN CLOUD OGECHUKWU [facility] [id number] General acute hospital 2023-12-15 15:45:00 2023-12-15 23:59:00 Outpatient JUANITO MOISE HOWARD [facility] [id number] General acute hospital 2023-12-15 15:18:40 2023-12-15 23:59:00 Hospital Encounter Juanito Holley 1.2.840.1 97253.1.1 3.104.2.7 .3.218339 .8 [id number] General acute hospital 2023-12-15 00:00:00 2023-12-15 00:00:00 Travel 1.2.840.1 15964.1.1 3.104.2.7 .3.872810 .8 1.2.840.114 350.1.13.10 4.2.7.3.698 084.8 [id number] General acute hospital 2023-12-12 06:32:00 2023-12-12 09:11:00 Outpatient R GIOVANNA WILDER [facility] TIFFANI [id number] General acute hospital 2023-12-12 06:32:00 2023-12-12 09:11:00 Hospital Encounter Giovanna Wilder 1.2.840.1 59771.1.1 3.104.2.7 .3.130224 .8 [id number] General acute hospital 2023-12-12 07:20:00 2023-12-12 08:23:00 Surgery Giovanna Wilder 1.2.840.1 09377.1.1 3.104.2.7 .3.534766 .8 [id number] General acute hospital 2023-12-12 07:27:00 2023-12-12 08:08:00 Anesthesia Event Keon Miller Joshua 1.2.840.1 90989.1.1 3.104.2.7 .3.831440 .8 [id number] General acute hospital 2023-12-12 00:00:00 2023-12-12 00:00:00 Travel 1.2.840.1 42213.1.1 3.104.2.7 .3.810124 .8 1.2.840.114 350.1.13.10 4.2.7.3.698 084.8 [id number] General acute hospital 2023-11-28 13:40:00 2023-11-28 14:36:03 Outpatient JUANITO MOISE HOWARD [facility] [id number] General acute hospital 2023-11-28 13:40:00 2023-11-28 14:36:03 Office Visit Juanito Holley Gene 1.2.840.1 48385.1.1 3.104.2.7 .3.612818 .8 [id number] General acute hospital 2023-11-27 00:00:00 2023-11-27 00:00:00 Travel 1.2.840.1 85918.1.1 3.104.2.7 .3.913495 .8 1.2.840.114 350.1.13.10 4.2.7.3.698 084.8 [id number] General acute hospital 2023-11-22 00:00:00 2023-11-22 16:42:12 Letter (Out) 1.2.840.1 49141.1.1 3.104.2.7 .3.761581 .8 [id number] General acute hospital 2023-11-21 14:00:00 2023-11-21 14:00:00 Outpatient LILLY SOSA CHRISTINE [facility] [id number] General acute hospital 2023-11-20 00:00:00 2023-11-20 00:00:00 Scanned Documents Doctor Unassigned, [place] 1.2.840.1 12456.1.1 3.104.2.7 .3.745540 .8 [id number] General acute hospital 2023-11-17 00:00:00 2023-11-17 10:20:05 Telephone Giovanna Wilder 1.2.840.1 75564.1.1 3.104.2.7 .3.448953 .8 [id number] General acute hospital 2023-11-16 16:00:00 2023-11-16 16:21:06 Outpatient R MEÑO GIOVANNA [facility] [id number] General acute hospital 2023-11-16 16:00:00 2023-11-16 16:21:06 Office Visit Giovanna Wilder 1.2.840.1 02112.1.1 3.104.2.7 .3.576652 .8 [id number] General acute hospital 2023-11-16 00:00:00 2023-11-16 00:00:00 Travel 1.2.840.1 30112.1.1 3.104.2.7 .3.958799 .8 1.2.840.114 350.1.13.10 4.2.7.3.698 084.8 [id number] General acute hospital 2023-11-15 00:00:00 2023-11-15 07:14:47 Telephone Vivian Cloud 1.2.840.1 39133.1.1 3.104.2.7 .3.054917 .8 [id number] General acute hospital 2023-11-10 00:00:00 2023-11-15 07:11:17 Telephone Maki Obregon 1.2.840.1 71747.1.1 3.104.2.7 .3.490709 .8 [id number] General acute hospital 2023-11-08 14:30:00 2023-11-08 23:59:00 Hospital Encounter Maki Obregon 1.2.840.1 36259.1.1 3.104.2.7 .3.220728 .8 [id number] General acute hospital 2023-11-08 16:00:00 2023-11-08 16:50:28 Outpatient R VIVIAN CLOUD OGECHUKWU [facility] [id number] General acute hospital 2023-11-08 16:00:00 2023-11-08 16:50:28 Office Visit Vivian Cloud 1.2.840.1 42104.1.1 3.104.2.7 .3.807749 .8 [id number] General acute hospital 2023-11-08 00:00:00 2023-11-08 00:00:00 Travel 1.2.840.1 53727.1.1 3.104.2.7 .3.560229 .8 1.2.840.114 350.1.13.10 4.2.7.3.698 084.8 [id number] General acute hospital 2023-11-01 14:00:00 2023-11-01 14:00:00 Outpatient R CHANDA LONDONO WENJIE [facility] [id number] General acute hospital 2023-10-30 00:00:00 2023-10-30 13:21:59 Telephone Maki Obregon [facility] 1.2.840.114 350.1.13.10 4.2.7.2.686 [id number] 044 [id number] General acute hospital 2023-10-26 09:30:00 2023-10-26 10:06:01 Outpatient R MAKI OBREGON [facility] [id number] General acute hospital 2023-10-26 09:30:00 2023-10-26 09:45:00 Helper Electrical Visit 2, Adc Lab Maki Obregon [facility] 1.2.840.114 350.1.13.10 4.2.7.2.686 [id number] General acute hospital 2023-10-25 15:20:00 2023-10-25 16:41:32 Outpatient R MAKI OBREGON [facility] [id number] General acute hospital 2023-10-25 15:20:00 2023-10-25 16:41:32 Office Visit Maki Obregon [facility] 1.2.840.114 350.1.13.10 4.2.7.2.686 [id number] 044 [id number] General acute hospital 2023-10-25 16:15:00 2023-10-25 16:30:00 Helper Electrical Visit 2, Adc Lab Maki Obregon [facility] 1.2.840.114 350.1.13.10 4.2.7.2.686 [id number] 353 [id number] General acute hospital 2023-10-25 15:00:00 2023-10-25 16:17:52 Office Visit Maki Obregon [facility] 1.2.840.114 350.1.13.10 4.2.7.2.686 [id number] 044 [id number] General acute hospital 2023-10-10 11:30:00 2023-10-10 11:30:00 Outpatient R VIKTORIA WARREN SHIWAN [facility] [id number] General acute hospital 2023-06-09 00:00:00 2023-06-09 00:00:00 Case Management Britni Jackson 1.2.840.114 350.1.13.10 4.2.7.2.686 [id number] 086 [id number] General acute hospital 2023-05-30 00:00:00 2023-05-30 00:00:00 Case Management Brinti Jackson 1.2.840.114 350.1.13.10 4.2.7.2.686 [id number] 086 [id number] General acute hospital 2023-05-22 00:00:00 2023-05-22 00:00:00 Case Management Britni Jackson 1.2.840.114 350.1.13.10 4.2.7.2.686 [id number] 086 [id number] General acute hospital 2023-05-22 00:00:00 2023-05-22 00:00:00 Case Management Britni Jackson 1.2.840.114 350.1.13.10 4.2.7.2.686 [id number] 086 [id number] General acute hospital 2023-04-17 00:00:00 2023-04-17 00:00:00 Orders Only Doctor Unassigned, [place] [facility] 1.2.840.114 350.1.13.10 4.2.7.2.686 [id number] 009 [id number] General acute hospital 2023-04-14 00:00:00 2023-04-14 00:00:00 Telephone Paul Thakkar [facility] 1.2.840.114 350.1.13.10 4.2.7.2.686 [id number] 059 [id number] General acute hospital 2023-03-28 11:30:00 2023-03-28 11:48:10 Outpatient R VIKTORIA WARREN SHIWAN [facility] [id number] General acute hospital 2023-03-28 11:30:00 2023-03-28 11:48:10 Office Visit Viktoria Warren [facility] 1.2.840.114 350.1.13.10 4.2.7.2.686 [id number] 085 [id number] General acute hospital 2023-03-28 00:00:00 2023-03-28 00:00:00 Letter (Out) Doctor Unassigned, [place] [facility] 1.2.840.114 350.1.13.10 4.2.7.2.686 [id number] 044 [id number] General acute hospital 2023-03-28 00:00:00 2023-03-28 00:00:00 Telephone Nelia Warrengriseldakinga [facility] 1.2.840.114 350.1.13.10 4.2.7.2.686 [id number] 085 [id number] General acute hospital 2023-03-28 00:00:00 2023-03-28 00:00:00 Telephone Cordell Neliayvan [facility] 1.2.840.114 350.1.13.10 4.2.7.2.686 [id number] 085 [id number] General acute hospital 2023-03-28 00:00:00 2023-03-28 00:00:00 Orders Only Doctor Unassigned, [place] [facility] 1.2.840.114 350.1.13.10 4.2.7.2.686 [id number] 009 [id number] General acute hospital 2023-02-02 00:00:00 2023-02-02 00:00:00 [facility] 1.2.840.114 350.1.13.10 4.2.7.2.686 [id number] 059 [id number] General acute hospital 2023-02-01 11:00:00 2023-02-01 11:15:00 Helper Electrical Visit 2, Adc Lab Gisela ThakkarghislaineUT [facility] 1.2.840.114 350.1.13.10 4.2.7.2.686 [id number] General acute hospital 2023-02-01 10:40:00 2023-02-01 10:48:28 Out[facility] [id number] General acute hospital 2023-02-01 10:40:00 2023-02-01 10:48:28 [facility] 1.2.840.114 350.1.13.10 4.2.7.2.686 [id number] 059 [id number] General acute hospital 2023-02-01 00:00:00 2023-02-01 00:00:00 Orders Only Doctor Unassigned, [place] [facility] 1.2840.114 350.1.13.10 4.2.7.2.686 [id number] 009 [id number] General acute hospital 2022-12-16 00:00:00 2022-12-16 00:00:00 Telephone Viktoria Warren [facility] 1.2840.114 350.1.13.10 4.2.7.2.686 [id number] 085 [id number] General acute hospital 2022-12-16 00:00:00 2022-12-16 00:00:00 Orders Only Doctor Unassigned, [place] [facility] 1.2.840.114 350.1.13.10 4.2.7.2.686 [id number] 009 [id number] General acute hospital 2022-12-01 00:00:00 2022-12-01 00:00:00 Orders Only Doctor Unassigned, [place] [facility] 1.2.840.114 350.1.13.10 4.2.7.2.686 [id number] 009 [id number] General acute hospital 2022-11-28 00:00:00 2022-11-28 00:00:00 Telephone Nelia Warrentxkinga [facility] 1.2840.114 350.1.13.10 4.2.7.2.686 [id number] 085 [id number] General acute hospital 2022-11-15 10:30:00 2022-11-15 11:49:33 Outpatient [facility] [id number] General acute hospital 2022-11-15 10:30:00 2022-11-15 11:49:33 Office Visit Viktoria Warren [facility] 1.2.840.114 350.1.13.10 4.2.7.2.686 [id number] 085 [id number] General acute hospital 2022-10-18 10:00:00 2022-10-18 10:00:00 [facility] [id number] General acute hospital 2022-10-17 00:00:00 2022-10-17 00:00:00 Telephone Viktoria Warren [facility] 1.2.840.114 350.1.13.10 4.2.7.2.686 [id number] 085 [id number] General acute hospital 2022-06-28 00:00:00 2022-06-28 00:00:00 Telephone Paul Thakkar [facility] 1.2.840.114 350.1.13.10 4.2.7.2.686 [id number] 059 [id number] General acute hospital 2022-06-21 12:58:59 2022-06-21 23:59:00 Hospital Encounter Viktoria Warren [facility] 1.2.840.114 350.1.13.10 4.2.7.2.686 [id number] General acute hospital 2022-06-21 12:58:58 2022-06-21 23:59:00 Outpatient R VIKTORIA WARREN SHIKYKinga [facility] [id number] General acute hospital 2022-06-21 00:00:00 2022-06-21 00:00:00 Telephone Viktoria Warren [facility] 1.2.840.114 350.1.13.10 4.2.7.2.686 [id number] 085 [id number] General acute hospital 2022-06-17 00:00:00 2022-06-17 00:00:00 Telephone Warren Viktoria [facility] 1.2.840.114 350.1.13.10 4.2.7.2.686 [id number] 085 [id number] General acute hospital 2022-06-14 11:00:00 2022-06-14 12:10:15 Outpatient R [facility]TOR[facility]EN [facility] [id number] General acute hospital 2022-06-14 11:00:00 2022-06-14 12:10:15 Office Visit Viktoria Warren [facility] 1.2.840.114 350.1.13.10 4.2.7.2.686 [id number] 085 [id number] General acute hospital 2022-06-14 00:00:00 2022-06-14 00:00:00 Telephone Cordell Viktoria [facility] 1.2.840.114 350.1.13.10 4.2.7.2.686 [id number] 059 [id number] General acute hospital 2022-03-29 00:00:00 2022-03-29 00:00:00 Orders Only Doctor Unassigned, [place] [facility] 1.2.840.114 350.1.13.10 4.2.7.2.686 [id number] 009 [id number] General acute hospital 2022-03-17 00:00:00 2022-03-17 00:00:00 Telephone Cordell Viktoria [facility] 1.2.840.114 350.1.13.10 4.2.7.2.686 [id number] 085 [id number] General acute hospital 2022-03-11 11:30:00 2022-03-11 11:56:56 Outpatient R WARREN NELIA BURGOSKYKinga [facility] [id number] General acute hospital 2022-03-11 11:30:00 2022-03-11 11:56:56 Office Visit Viktoria Warren [facility] 1..840.114 350.1.13.10 4.2.7.2.686 [id number] 085 [id number] General acute hospital 2022-03-11 00:00:00 2022-03-11 00:00:00 Orders Only Doctor Unassigned, [place] [facility] 1..840.114 350.1.13.10 4.2.7.2.686 [id number] 009 [id number] General acute hospital 2022-03-02 00:00:00 2022-03-02 00:00:00 Telephone Bijan [facility] 1..840.114 350.1.13.10 4.2.7.2.686 [id number] 059 [id number] General acute hospital 2022-02-09 15:45:26 2022-02-09 23:59:00 [id number] 2022-02-09 16:00:00 2022-02-09 16:00:00 Outpatient [facility] [id number] General acute hospital 2022-02-01 14:40:00 2022-02-01 15:04:29 Outpatient [facility] [id number] General acute hospital 2022-02-01 14:40:00 2022-02-01 15:04:29 Office Visit Bijan [facility] BUILDING 1..840.114 350.1.13.10 4.2.7.2.686 [id number] 059 [id number] General acute hospital 2022-02-01 14:40:00 2022-02-01 15:04:29 Out[facility] [id number] General acute hospital 2022-02-01 14:40:00 2022-02-01 14:40:00 Outpatient [facility] [id number] General acute hospital 2022-02-01 00:00:00 2022-02-01 00:00:00 Telephone Bijan [facility] 1..840.114 350.1.13.10 4.2.7.2.686 [id number] 059 [id number] General acute hospital 2022-01-25 09:15:00 2022-01-25 09:30:00 Helper Electrical Visit 1, Adc Lab Bijan [facility] 1.840.114 350.1.13.10 4.2.7.2.686 [id number] General acute hospital 2022-01-25 09:15:00 2022-01-25 09:15:00 Outpatient [facility] [id number] General acute hospital 2022-01-25 00:00:00 2022-01-25 00:00:00 Orders Only Doctor Unassigned, [place] [facility] 1.840.114 350.1.13.10 4.2.7.2.686 [id number] 009 [id number] General acute hospital 2021-12-06 00:00:00 2021-12-06 00:00:00 Telephone Bijan [facility] 1.2.840.114 350.1.13.10 4.2.7.2.686 [id number] 059 [id number] General acute hospital 2021-06-15 15:00:00 2021-06-15 15:00:00 Outpatient R MAKI OBREGON [facility] [id number] General acute hospital 2021-01-27 14:13:15 2021-01-27 14:59:30 Office Visit Viktoria Warren [facility] Maulik [facility] 1.2.114 350.1.13.10 4.2.7.2.686 [id number] 085 [id number] General acute hospital 2021-01-27 11:45:00 2021-01-27 11:45:00 Outpatient R NICOLETTE JARED [facility] [id number] General acute hospital 2021-01-27 00:00:00 2021-01-27 00:00:00 Letter (Out) Doctor Unassigned, [place] [facility] 1.114 350.1.13.10 4.2.7.2.686 [id number] 044 [id number] General acute hospital 2021-01-22 15:30:00 2021-01-22 15:30:00 Outpatient R TAYLOR WARRENVIKTORIA SALAMANCA [facility] [id number] General acute hospital 2020-12-03 00:00:00 2020-12-03 00:00:00 Telephone Maki Obregon [facility] 1.2.114 350.1.13.10 4.2.7.2.686 [id number] 044 [id number] General acute hospital 2020-11-25 14:25:37 2020-11-25 14:25:46 Office Visit Maki Obregon [facility] Building 1.2.114 350.1.13.10 4.2.7.2.686 [id number] 044 [id number] General acute hospital 2020-11-25 13:46:51 2020-11-25 14:23:48 Office Visit Maki Obregon [facility] Building 1.2.114 350.1.13.10 4.2.7.2.686 [id number] 044 [id number] General acute hospital 2020-11-25 14:00:00 2020-11-25 14:00:00 Outpatient MAKI BLANK [facility] [id number] General acute hospital 2020-11-10 15:00:00 2020-11-10 15:00:00 Outpatient IVÁN KIRK [facility] [id number] General acute hospital 2020-11-10 00:00:00 2020-11-10 00:00:00 Telephone Nurse, [facility] Office [facility] 1.840.114 350.1.13.10 4.2.7.2.686 [id number] General acute hospital 2020-11-10 00:00:00 2020-11-10 00:00:00 Orders Only Doctor Unassigned, [place] [facility] 1.84.114 350.1.13.10 4.2.7.2.686 [id number] General acute hospital 2020-11-10 00:00:00 2020-11-10 00:00:00 Telephone Ligia Parsons [facility] 1.84.114 350.1.13.10 4.2.7.2.686 [id number] General acute hospital 2020-11-06 19:13:26 2020-11-06 19:59:43 Urgent Care Ligia Parsons [facility] Office [facility] 1.84.114 350.1.13.10 4.2.7.2.686 [id number] General acute hospital 2020-11-06 19:00:00 2020-11-06 19:00:00 Outpatient R [facility] [id number] General acute hospital 2020-10-27 00:00:00 2020-10-27 00:00:00 Orders Only Doctor Unassigned, [place] [facility] 1.2840.114 350.1.13.10 4.2.7.2.686 [id number] General acute hospital 2020-10-14 00:00:00 2020-10-14 00:00:00 Orders Only Doctor Unassigned, [place] [facility] 1.2840.114 350.1.13.10 4.2.7.2.686 [id number] General acute hospital 2020-10-13 15:00:00 2020-10-13 15:00:00 Outpatient R IVÁN CHIRSTY [facility] [id number] General acute hospital 2020-10-13 15:00:00 2020-10-13 15:00:00 Outpatient IVÁN KIRK [facility] [id number] General acute hospital 2020-10-06 14:20:00 2020-10-06 14:20:00 Outpatient R PAUL THAKKAR [facility] [id number] General acute hospital 2020-09-11 13:42:05 2020-09-11 14:13:18 Office Visit Viktoria Warren [facility] 1..840.114 350.1.13.10 4.2.7.2.686 [id number] General acute hospital 2020-09-11 13:50:00 2020-09-11 13:50:00 Outpatient R VIKTORIA WARREN [facility] [id number] General acute hospital 2020-08-20 00:00:00 2020-08-20 00:00:00 [facility]840.114 350.1.13.10 4.2.7.2.686 [id number] General acute hospital 2020-08-17 00:00:00 2020-08-17 00:00:00 [facility] 1.840.114 350.1.13.10 4.2.7.2.686 [id number] General acute hospital 2020-08-12 12:30:00 2020-08-12 12:30:00 Outpatient R IVÁN CHRISTY [facility] [id number] General acute hospital 2020-08-07 15:18:55 2020-08-07 15:33:55 Laboratory Only Only, Adc Test Doug Mittal Isra Thakkar [facility] 1..114 350.1.13.10 4.2.7.2.686 [id number] General acute hospital 2020-08-07 15:30:00 2020-08-07 15:30:00 [id number] acute hospital 2020-08-07 00:00:00 2020-08-07 00:00:00 Orders Only Doctor Unassigned, [place] [facility] 1.0.114 350.1.13.10 4.2.7.2.686 [id number] General acute hospital 2020-07-16 00:00:00 2020-07-16 00:00:00 Telephone Bijan [facility] 1..114 350.1.13.10 4.2.7.2.686 [id number] General acute hospital 2020-07-13 09:48:50 2020-07-13 10:03:50 Helper Electrical Visit Pob, Adc Lab [facility] 1.2840.114 350.1.13.10 4.2.7.2.686 [id number] General acute hospital 2020-07-13 09:45:00 2020-07-13 09:45:00 Outpatient R GISELA THAKKARNACHO [facility] [id number] General acute hospital 2020-07-13 00:00:00 2020-07-13 00:00:00 [facility]phone [facility] 1.2.840.114 350.1.13.10 4.2.7.2.686 [id number] General acute hospital 2020-07-07 14:50:00 2020-07-07 14:50:00 Outpatient R EARNEST, REX [facility] [id number] General acute hospital 2020-07-06 15:23:02 2020-07-06 16:18:24 Office Visit Bijan [facility] Building 1.2.840.114 350.1.13.10 4.2.7.2.686 [id number] General acute hospital 2020-07-06 15:40:00 2020-07-06 15:40:00 [facility] [id number] General acute hospital 2020-07-06 00:00:00 2020-07-06 00:00:00 Orders Only Doctor Unassigned, [place] [facility] 1.2840.114 350.1.13.10 4.2.7.2.686 [id number] General acute hospital 2020-06-16 00:00:00 2020-06-16 00:00:00 Telephone Bijan [facility] 1.2840.114 350.1.13.10 4.2.7.2.686 [id number] General acute hospital 2020-05-05 14:00:00 2020-05-05 14:00:00 [facility] [id number] General acute hospital 2020-04-13 15:00:00 2020-04-13 15:00:00 Outpatient R PAUL THAKKAR [facility] [id number] General acute hospital 2020-04-03 12:30:00 2020-04-03 12:30:00 Outpatient Cheng COSTELLO [facility] [id number] [facility] 2020-03-25 14:40:00 2020-03-25 14:40:00 Outpatient Nicolasa MAKI OBREGON [facility] [id number] General acute hospital 2020-03-25 12:40:00 2020-03-25 12:40:00 Outpatient Nicolasa CHASITYMEREDITHMAKI MORALES [facility] [id number] General acute hospital 2020-03-17 00:00:00 2020-03-17 00:00:00 Telephone [facility] 1..840.114 350.1.13.10 4.2.7.2.686 [id number] General acute hospital 2020-03-12 09:30:00 2020-03-12 09:30:00 Outpatient PAUL NAVARRO [facility] [id number] General acute hospital 2020-03-05 00:00:00 2020-03-05 00:00:00 Refill Bijan [facility] 1..840.114 350.1.13.10 4.2.7.2.686 [id number] General acute hospital 2020-02-28 00:00:00 2020-02-28 00:00:00 [facility]ill [facility]aki [facility] 1..840.114 350.1.13.10 4.2.7.2.686 [id number] [id number] General acute hospital 2020-02-13 00:00:00 2020-02-13 00:00:00 [facility] 1..840.114 350.1.13.10 4.2.7.2.686 [id number] [id number] General acute hospital 2020-02-11 11:48:55 2020-02-11 23:59:00 Hospital Encounter Bijan, [facility] 1.2840.114 350.1.13.10 4.2.7.2.686 [id number] General acute hospital 2020-02-11 12:00:00 2020-02-11 12:00:00 Outpatient BIJAN, [facility] [id number] General acute hospital 2020-02-11 11:47:41 2020-02-11 11:47:41 Hospital Encounter Bijan, [facility] 1.2.840.114 350.1.13.10 4.2.7.2.686 [id number] General acute hospital 2020-02-11 09:30:00 2020-02-11 09:30:00 Outpatient R BIJAN, [facility] [id number] General acute hospital 2020-02-11 00:00:00 2020-02-11 00:00:00 Orders Only Doctor Unassigned, [place] [facility] 1.2840.114 350.1.13.10 4.2.7.2.686 [id number] [id number] General acute hospital 2020-01-28 12:00:00 2020-01-28 23:59:00 Hospital Encounter Bijan, [facility] 1.2.840.114 350.1.13.10 4.2.7.2.686 [id number] General acute hospital 2020-01-28 12:00:00 2020-01-28 12:00:00 Outpatient BIJAN [facility] [id number] General acute hospital 2020-01-28 00:00:00 2020-01-28 00:00:00 Orders Only Doctor Unassigned, [place] [facility] 1.2840.114 350.1.13.10 4.2.7.2.686 [id number] [id number] General acute hospital 2020-01-14 12:50:56 2020-01-14 14:05:56 Laboratory Only Pc, Adc Echo Room 1 - [facility] 1.2840.114 350.1.13.10 4.2.7.2.686 [id number] General acute hospital 2020-01-14 13:00:00 2020-01-14 13:00:00 Outpatient R [facility] [id number] General acute hospital 2020-01-14 09:30:00 2020-01-14 09:30:00 Outpatient R BIJAN [facility] [id number] General acute hospital 2020-01-14 00:00:00 2020-01-14 00:00:00 Orders Only Doctor Unassigned, [place] [facility] 1.2840.114 350.1.13.10 4.2.7.2.686 [id number] [id number] General acute hospital 2020-01-02 09:23:30 2020-01-13 16:52:01 Helper Electrical Visit Rehab, Adc Cardiac Bijan, [facility] 1.2840.114 350.1.13.10 4.2.7.2.686 [id number] General acute hospital 2019-12-31 09:24:02 2020-01-13 16:48:19 Helper Electrical Visit Rehab, Adc Cardiac Bijan, [facility] 1.2840.114 350.1.13.10 4.2.7.2.686 [id number] [id number] General acute hospital 2019-12-26 09:22:13 2020-01-13 16:43:59 Helper Electrical Visit Rehab, Adc Cardiac Bijan, [facility] 1.2.840.114 350.1.13.10 4.2.7.2.686 [id number] General acute hospital 2020-01-13 00:00:00 2020-01-13 00:00:00 [facility] 1.2.840.114 350.1.13.10 4.2.7.2.686 [id number] [id number] General acute hospital 2020-01-07 09:16:28 2020-01-11 11:57:39 Helper Electrical Visit Rehab, [facility] 1.2.840.114 350.1.13.10 4.2.7.2.686 [id number] General acute hospital 2020-01-08 11:45:00 2020-01-08 23:59:00 [facility] 1.2.840.114 350.1.13.10 4.2.7.2.686 [id number] General acute hospital 2020-01-08 10:48:56 2020-01-08 11:28:50 [facility] 1.2.840.114 350.1.13.10 4.2.7.2.686 [id number] General acute hospital 2020-01-08 11:00:00 2020-01-08 11:00:00 [facility] [id number] General acute hospital 2020-01-08 00:00:00 2020-01-08 00:00:00 Orders Only Doctor Unassigned, [place] [facility] 1.2.840.114 350.1.13.10 4.2.7.2.686 [id number] General acute hospital 2020-01-07 00:00:00 2020-01-07 00:00:00 Orders Only Doctor Unassigned, [place] [facility] 1.2.840.114 350.1.13.10 4.2.7.2.686 [id number] [id number] General acute hospital 2020-01-02 00:00:00 2020-01-02 00:00:00 Orders Only Doctor Unassigned, [place] [facility] 1.2.840.114 350.1.13.10 4.2.7.2.686 [id number] [id number] General acute hospital 2019-12-26 00:00:00 2019-12-26 00:00:00 Orders Only Doctor Unassigned, [place] [facility] 1.2.840.114 350.1.13.10 4.2.7.2.686 [id number] [id number] General acute hospital 2019-12-24 11:11:31 2019-12-24 12:30:12 Office Visit Maki Obregon [facility] 1.2840.114 350.1.13.10 4.2.7.2.686 [id number] General acute hospital 2019-12-24 11:20:00 2019-12-24 11:20:00 Outpatient R MAKI OBREGON [facility] [id number] General acute hospital 2019-12-19 09:23:44 2019-12-21 10:21:05 Helper Electrical Visit Rehab, [facility] Cardiac Bijan [facility] 1.2840.114 350.1.13.10 4.2.7.2.686 [id number] General acute hospital 2019-12-17 09:19:46 2019-12-21 10:16:47 Helper Electrical Visit Rehab, [facility] Cardiac Bijan [facility] 1.2840.114 350.1.13.10 4.2.7.2.686 [id number] General acute hospital 2019-12-17 00:00:00 2019-12-17 00:00:00 Orders Only Doctor Unassigned, [place] [facility] 1.2.114 350.1.13.10 4.2.7.2.686 [id number] [id number] General acute hospital 2019-12-12 09:23:23 2019-12-14 10:21:23 Helper Electrical Visit Rehab, Adc Cardiac Bijan, [facility] 1.2.114 350.1.13.10 4.2.7.2.686 [id number] General acute hospital 2019-12-10 09:18:20 2019-12-14 10:19:48 Helper Electrical Visit Rehab, Adc Cardiac Bijan, [facility] 1..114 350.1.13.10 4.2.7.2.686 [id number] General acute hospital 2019-12-12 09:30:00 2019-12-12 09:30:00 Outpatient R [facility]IJ[facility] [id number] General acute hospital 2019-12-11 11:00:00 2019-12-11 11:00:00 Outpatient R [facility]IJAN[facility] [id number] General acute hospital 2019-12-05 09:26:08 2019-12-09 10:28:07 Helper Electrical Visit Rehab, Adc Cardiac Bijan, [facility] 1.2114 350.1.13.10 4.2.7.2.686 [id number] General acute hospital 2019-12-03 09:21:59 2019-12-09 10:26:06 Helper Electrical Visit Rehab, Adc Cardiac Bijan, [facility] 1.2.114 350.1.13.10 4.2.7.2.686 [id number] General acute hospital 2019-12-05 00:00:00 2019-12-05 00:00:00 Orders Only Doctor Unassigned, [place] [facility] 1.2.840.114 350.1.13.10 4.2.7.2.686 [id number] [id number] General acute hospital 2019-11-26 13:01:37 2019-11-26 14:55:49 Helper Electrical Visit Rehab, Adc Cardiac Bijan [facility] 1..840.114 350.1.13.10 4.2.7.2.686 [id number] General acute hospital 2019-11-26 13:00:00 2019-11-26 13:00:00 Out[facility] [id number] General acute hospital 2019-11-26 00:00:00 2019-11-26 00:00:00 Orders Only Doctor Unassigned, [place] [facility] 1.2.840.114 350.1.13.10 4.2.7.2.686 [id number] [id number] General acute hospital 2019-10-29 14:00:00 2019-10-29 14:00:00 Outpatient R [facility] [id number] General acute hospital 2019-09-24 14:20:00 2019-09-24 14:20:00 Outpatient R MAKI OBREGON [facility] [id number] General acute hospital 2019-09-24 10:55:21 2019-09-24 11:15:21 Telemedici ne Visit Víctor [facility] Building 1..840.114 350.1.13.10 4.2.7.2.686 [id number] General acute hospital 2019-09-11 10:20:00 2019-09-11 10:20:00 Out[facility] [id number] General acute hospital 2019-09-11 08:51:58 2019-09-11 09:11:58 Telemedici ne Visit Paul Thakkar [facility] Building 1.2840.114 350.1.13.10 4.2.7.2.686 [id number] General acute hospital 2019-08-28 10:01:03 2019-08-29 11:06:04 Office Visit Markus Andrea [facility] Medical Office Building 1.2840.114 350.1.13.10 4.2.7.2.686 [id number] General acute hospital 2019-08-28 10:30:00 2019-08-28 10:30:00 Outpatient R [facility] [id number] General acute hospital 2019-08-28 09:20:00 2019-08-28 09:20:00 Out[facility] [id number] General acute hospital 2019-08-20 00:00:00 2019-08-20 00:00:00 Transition of Care Jovita Vanessa 1.20.114 350.1.13.10 4.2.7.2.686 [id number] General acute hospital 2019-08-13 05:11:00 2019-08-19 13:25:00 Inpatient R EMRE [facility]Y [facility] [id number] General acute hospital 2019-08-13 05:11:00 2019-08-19 13:25:00 Hospital Encounter EmreMarkus garcia [facility] 1.20.114 350.1.13.10 4.2.7.2.686 [id number] General acute hospital 2019-08-07 00:00:00 2019-08-07 00:00:00 Telephone Maki Obregon [facility] Building 1.20.114 350.1.13.10 4.2.7.2.686 [id number] General acute hospital 2019-07-30 00:00:00 2019-07-30 00:00:00 Telephone [facility] 1.2.840.114 350.1.13.10 4.2.7.2.686 [id number] General acute hospital 2019-07-26 14:16:47 2019-07-26 23:59:00 Outpatient R DAVON CHRISTA [facility] [id number] General acute hospital 2019-07-26 14:15:00 2019-07-26 23:59:00 Hospital Encounter Christa Mays [facility] 1.2.840.114 350.1.13.10 4.2.7.2.686 [id number] General acute hospital 2019-07-26 14:16:04 2019-07-26 14:31:04 Helper Electrical Visit Pob, Adc Lab Main [facility] [place] [facility] 1.2.840.114 350.1.13.10 4.2.7.2.686 [id number] General acute hospital 2019-07-24 00:00:00 2019-07-24 00:00:00 Telephone [facility]aki [facility] [facility] 1.2.840.114 350.1.13.10 4.2.7.2.686 [id number] General acute hospital 2019-07-18 00:00:00 2019-07-18 00:00:00 Telephone Maki Obregon [facility] Building 1.2.840.114 350.1.13.10 4.2.7.2.686 [id number] General acute hospital 2019-07-18 00:00:00 2019-07-18 00:00:00 Prep For Surgery [facility] 1.2.840.114 350.1.13.10 4.2.7.2.686 [id number] 037 [id number] General acute hospital 2019-07-18 00:00:00 2019-07-18 00:00:00 Case Management [facility] 1.2.840.114 350.1.13.10 4.2.7.2.686 [id number] General acute hospital 2019-07-08 08:00:00 2019-07-08 23:59:00 Hospital Encounter Justice Villegas Outpt-Raya, [facility] 1.2.840.114 350.1.13.10 4.2.7.2.686 [id number] General acute hospital 2019-07-08 00:00:00 2019-07-08 00:00:00 Telephone Bijan [facility] 1.2.840.114 350.1.13.10 4.2.7.2.686 [id number] General acute hospital 2019-07-01 00:00:00 2019-07-01 00:00:00 Telephone Justice Villegas [facility] 1.2.840.114 350.1.13.10 4.2.7.2.686 [id number] General acute hospital 2019-06-28 13:38:27 2019-06-28 15:30:35 Laboratory Only Tech, Adc Cardio Fac 1, Adc Cardio Fac Room Bijan [facility] 1.2.840.114 350.1.13.10 4.2.7.2.686 [id number] General acute hospital 2019-06-28 13:01:31 2019-06-28 13:16:31 Helper Electrical [facility] 1.2.840.114 350.1.13.10 4.2.7.2.686 [id number] General acute hospital 2019-06-28 00:00:00 2019-06-28 00:00:00 Orders Only Doctor Unassigned, [place] [facility] 1.2.840.114 350.1.13.10 4.2.7.2.686 [id number] General acute hospital 2019-06-25 12:23:54 2019-06-25 14:33:23 Office Visit Maki Obregon [facility] 1.2.840.114 350.1.13.10 4.2.7.2.686 [id number] General acute hospital 2019-06-25 10:34:20 2019-06-25 11:11:35 [facility] 1.2.840.114 350.1.13.10 4.2.7.2.686 [id number] General acute hospital 2019-06-25 00:00:00 2019-06-25 00:00:00 [facility] 1.2.840.114 350.1.13.10 4.2.7.2.686 [id number] General acute hospital 2019-01-21 00:00:00 2019-01-21 00:00:00 [facility] 1.2.840.114 350.1.13.10 4.2.7.2.686 [id number] General acute hospital 2019-01-17 00:00:00 2019-01-17 00:00:00 Case Management Chani Doyle [facility] 1.2.840.114 350.1.13.10 4.2.7.2.686 [id number] General acute hospital Results Test Description Test Time Test Comments Results Result Co mments Source [facility] Met[facility] Panel (10986)2024-01-30 15:13:11* Test Item Value Reference Range Interpretation Comme nts NA (test code = 5011166974) 136 mmol/L 135-145 K (test code = 6353524189) 4.9 mmol/L 3.5-5.0 CL (test code = 0189440180) 101 mmol/L 98-108 CO2 TOTAL (test code = 9139484250) 27 mmol/L 23-31 AGAP (test code = 5404371350) 8 2-16 BUN (test code = 5723101489) 21 mg/dL 7-23 GLUCOSE (test code = 6560931425) 82 mg/dL 70-110 CREATININE (test code = 2160-0) 1.28 mg/dL 0.60-1.25 H TOTAL BILI (test code = 5035480165) 0.8 mg/dL 0.1-1.1 CALCIUM (test code = 9539413076) 9.1 mg/dL 8.6-10.6 T PROTEIN (test code = 7576325440) 6.8 g/dL 6.3-8.2 ALBUMIN (test code = 2672956596) 3.7 g/dL 3.5-5.0 ALK PHOS (test code = 1877724528) 68 U/L 34-122 ALTv (test code = 1742-6) 19 U/L 5-50 AST(SGOT) (test code = 3782977100) 23 U/L 13-40 eGFR (test code = 02823-9) 61.0 mL/min/1.73m2 CKD-EPI eGFR (2020). Assuming creatinine has been stable day-to-day for at least three months, the eGFR indicates Category G2 (60 - 89 mL/min/1.73 m2) Lab Interpretation (test code = 29195-9) Abnormal [facility] CampusCb with [id number] 14:38:48* Test Item Value Reference Range Interpretation Comme nts WBC (test code = 6690-2) 7.29 4.20-10.70 RBC (test code = 789-8) 3.98 4.26-5.52 L HGB (test code = 718-7) 12.1 g/dL 12.2-16.4 L HCT (test code = 4544-3) 37.1 % 38.4-49.3 L MCV (test code = 787-2) 93.2 fL 81.7-95.6 MCH (test code = 785-6) 30.4 pg 26.1-32.7 MCHC (test code = 786-4) 32.6 g/dL 31.2-35.0 RDW-SD (test code = 90785-1) 45.6 fL 38.5-51.6 RDW-CV (test code = 788-0) 13.5 % 12.1-15.4 PLT (test code = 777-3) 233 150-328 MPV (test code = 06649-8) 10.1 fL 9.8-13.0 NRBC/100 WBC (test code = 2264435967) 0.0 0.0-10.0 NRBC x10^3 (test code = 0537713290) See_Comment [Automated messa ge] The system which generated this result transmitted reference range: 10*3/?L. The reference range was not used to interpret this result as normal/abnormal. GRAN MAT (NEUT) % (test code = 770-8) 57.6 % IMM GRAN % (test code = 0537597329) 0.40 % LYMPH % (test code = 736-9) 15.6 % MONO % (test code = 5905-5) 10.7 % EOS % (test code = 713-8) 14.3 % BASO % (test code = 706-2) 1.4 % GRAN MAT x10^3(ANC) (test code = 3381811678) 4.20 10*3/uL 1.99-6.95 IMM GRAN x10^3 (test code = 9576958963) 0.03 10*3/uL 0.00-0.06 LYMPH x10^3 (test code = 731-0) 1.14 10*3/uL 1.09-3.23 MONO x10^3 (test code = 742-7) 0.78 10*3/uL 0.36-1.02 EOS x10^3 (test code = 711-2) 1.04 10*3/uL 0.06-0.53 H BASO x10^3 (test code = 704-7) 0.10 10*3/uL 0.01-0.09 H Lab Interpretation (test code = 16017-1) Abnormal [facility] CampusType and Screen -2024-01-30 14:20:00* Test Item Value Reference Range Interpretation Comme nts ABO & RH (test code = 20) A POSITIVE IAT (test code = 1185) Negative [facility] CampusDME/SUPPLY [id number] 21:02:43 Ordered by an unspecified provider.[facility] Glycosylated Hemoglobin (A1C)2024-01-25 15:23:34* Test Item Value Reference Range Interpretation Comme [facility] HGB A1C (test code = 4548-4) 7.0 % 4.0-5.7 H MERLINE (test code = MERLINE) Reference RangesNormal: <5.7%Prediabetes: 5.7 - 6.4%Diabetes: > 6.5% Lab Interpretation (test code = 91713-2) Abnormal [facility] CampusThyroid Stimulating [id number] 15:05:32 * Test Item Value Reference Range Interpretation Comme nts TSH (test code = 9935138259) 5.91 0.45-4.70 H Lab Interpretation (test cod e = 04728-3) Abnormal [facility] CampusLipid Panel (36544)(Total Cholesterol, Triglycerides, HDL)2024-01-25 14:34:44* Test Item Value Reference Range Interpretation Comme nts CHOL (test code = 0939978503) 264 mg/dL 120-200 H HDL (test code = 0213431644) 71 mg/dL >=40 HDLC RATIO (test code = 9430239185) 3.7 <=5.0 TRIG (test code = 5328356137) 152 mg/dL 30-170 LDL CHOL (test code = 92891-4) 163 mg/dL <=160 H VLDL (test code = 2175704386) 30 mg/dL 5-60 Lab Interpretation (test cod e = 40217-9) Abnormal [facility] CampusPOCT Urinalysis, [id number] 19:14:00 * Test Item Value Reference Range Interpretation Comme nts POCT U SP GRAV (test code = 3255) 1.015 mg/dl 1.005-1.025 POCT PH U (test code = 3254) 6.0 mg/dl 5-8 POCT U LEUK EST (test code = 3263) negative Negative - Negative POCT U NIT (test code = 3262) negative Negative - Negati ve POCT U PROT (test code = 3259) negative Negative - Negative POCT U GLU (test code = 3256) negative Negative - Negati ve POCT U KETONE (test code = 3258) negative Negative - Negative POCT U UROBILI (test code = 3260) 0.2 mg/dl 0.2-1 POCT U BILI (test code = 3261) negative Negative - Negative POCT U BLD (test code = 3257) trace Negative - Negati ve POCT U COLOR (test code = 3266) yellow POCT U APPEAR (test code = 3267) clear [facility] CampusMEAS,POST-VOID RES,US,DKK-[id number] 00:00:00* Test Item Value Reference Range Interpretation Comme nts PVR (URINE VOLUME) (test code = 5193) 57 ml 0-100 [facility] CampusPOCT [id number] 22:43:09* Test Item Value Reference Range Interpretation Comme nts POCT Creatinine (test code = 3781968214) 1.6 mg/dL 0.6-1.3 H Lab Interpretation (test cod e = 58540-7) Abnormal [facility] CampusCT ABDOMEN PELVIS W [id number] 20:13:06CT Abdomen and Pelvis with intravenous contrast. CLINICAL HISTORY: Colon cancer, metastatic stagingworkup. DOSE: Up-to-date CT equipment and radiation dose reduction techniques wereemployed. CTDIvol: ?9.12 mGy. DLP: 438.53 mGy-cm. TECHNIQUE : Contiguous axial imaging from the level of the lung basesthrough the pubic symphysis were performed after the uncomplicatedadministration of nonionic contrast material. ?Coronal and sagittalreconstructions were obtained. Auto mA and/or iterative reconstruction wereused to reduce radiation dose. FINDINGS: ?Comparison has been made with 12/25/2016 CT studies. Lower lungs: Clear. Small hiatal hernia noted. Liver, Gallbladder and Spleen: Normal size liver with no focal lesions. 12mm hypodense lesion in the anterior subcapsular portion of the spleen isnewsince 2017 study, therefore, of uncertain etiology but likelyincidental small cyst. Adjacent to this 12 mm cystic lesion, a tiny 3 mmcystic lesion also seen in the spleen. Mild thickening of the gallbladder wall is noted. No visible gallstones.Biliary ducts and the pancreatic duct appear of normal size. Peritoneum: ?No free air or free fluid. No lymphadenopathy. Pancreas and Adrenals: ?Unremarkable pancreas and adrenal glands. Kidneys and Ureters: ?No visible calculi in the renal collecting systems. No hydroureter or hydronephrosis. 6 mm hypodense lesion in the upper poleof the right kidney is unchanged. Adjacent to this cyst, there is avertical hypodense lesion in the cortex, appears benign. Vessels: Mild atherosclerosis. No AAA. Retroperitoneum: No abnormal fluid or lymphadenopathy. Bowel: ?Changes of sigmoid resection as well as additional site of bowelresection in the right abdomen.Anastomotic sites appear normal. Smallamount of scar tissue seen in the pelvis surrounding the rectal fat and inthe presacral space. No enlarged lymph nodes are seen. Normal appendix is visualized. Bladder and Reproductive Organs: ?Thickened bladder wall is noted whichcould be due to incomplete luminal distention and/or enlarged prostategland. Bones: Degenerative disc disease at L5-S1 with prominent disc osteophytecomplex encroaching the midline and left side of the spinal canal. Abroad-based midline disc herniation suspected at L4-L5. Prominent diffusebulging disc at L3-L4 noted. Shallow Schmorl's nodes seen in the upperplate of L3, some of the lower thoracic vertebral endplates, likelyseco ndary to remote trauma. No aggressive bone lesions. Soft tissues: Small complex type bilateral inguinal hernia containing fatwithout any complications. CONCLUSION: No CT findings of metastatic disease in the abdomen or pelvis. [facility] CampusCT THORAX W [id number] 20:08:23 HISTORY: Colon cancer, metastatic staging study. TECHNIQUE: 64-Multidetector noncontrast enhanced CT of the chest isobtained. FINDINGS: Comparison is being made with 06/21/2022 CT chest. Calcifications noted in the left thyroid gland, unchanged. No suspiciousthyroid nodule visualized. Calcification is seen in the right paratracheallymph node. No enlarged lymph nodes are seen in the sade or the mediastinum. Post CABGsurgical changes are seen. Metallic stents noted in proximal LAD coronaryartery. Scattered calcified and noncalcified 1 mm to 4 mm size granulomas are seenthroughout both lungs. No suspicious lung nodule visualized. No pneumothorax or pneumomediastinum. No pleural effusion or peric ardialeffusion. Small hiatal hernia noted. Air is seen in the thoracic esophagus whichcould be secondary to gastroesophageal reflux. Midthoracic moderate degenerative spondylosis, old trauma to some of themiddle and lower thoracic vertebral endplates noted secondary to axialloading injury is. CONCLUSIONS: No CT findings of intrathoracic metastatic disease.[facility] [id number] 21:02:02* Test Item Value Reference Range Interpretation Comme nts Case Report (test code = [id number]) Surgical Pathology ?Case: [id number] ? Authorizing Provider: ?Giovanna Wilder MD ? ? ? Collected: ? 12/12/2023 0744 ?Ordering Location: ? ? [facility] ? ? ?Received: ?12/12/2023 1551 ? Surgical Center ?Pathologist: ? Sabine Eric MD ? Specimen: ? ?LARGE INTESTINE, CECUM, cecal tumor ? Final Diagnosis (test code = [id number]) l2xnsDAfMEOls1kgUQOqiTN uZzEwMzNcZnRuYmpcdWMxIH ecerLoDBoedEojUJU6VFWwL H5fzFzspVg5gZkyLJMpleV0 hFVjZHagh7faLNW9d7qjahl zDWAcRNjmHe1cmWMraOveDw IhLKCaMHd9wM19JESbbN2yw NBtFSg2NWOklYZwnhRwGkQz ZTYrhTRgsAH1NPLoEP0owyo qYQoxIKcoNIZjexP3IIAymO PxS9DpBJPuVN6zxmpgYBU9J SqqVCCsUJS6UuQkEYDhd7Zz lid7ZuZtpMTcKMhyvVMphgw mczIwXHBhciBBLiBMQVJHRS FXWhPUM0CUGuNtVAPJO9RGQ OJUKL3MNprpNyrJTXIAUnbi YXIgICAgICAtIFNVUEVSRkl KHKMFDVHRWDeUYF3GYyPAWi ZDNUCPBZ6OLOyRG0EIVNDWA A0TRKXzR1lKPAQTT9PTZNWk cGFyICAgICAgICAgSElHSCB HUkFERSBEWVNQTEFTSUEgKE 1VTFRJUExFIERFRVBFUiBMR VZFTFMgRVhBTUlORUQpXHBh clxwYXJcZnMyMlxwYXJcZnM qJJIIyXvifCAlF4llsxJlBD RPICBccGFyfXtccnRmMVxzc 2ThX2AvKbTzTXqzprIzYBGc PzxkxkxfFSRvLNY8kfBiCDD iNAaqGAPuLDtrCy9bvALtpZ kbHsMfNARzo5iqjkTSEUbyY sXaC908YRCcRJgeh9eoj4No AXMkuEHoy3L3GBBGxqdqxEo 4r2tiEmMyHmB9fIEbXVtvH8 idxxPyiQElB4OfiPNsuCo3o BxdX43ro1K2KfjzL3szDGQq HSCvB6CdQK7iGYGlEju7HVQ 0HQX9FHFmZIYuF3IpLI4vFH QzyRFsQIm4k6izxKwuRELqK SG2t1tcKCoqujV7PL5zfl5o sSz3l5jsvdBsMOVeCVUdfLQ SOEPrD3WhnKbiDv3ciDk6sT reQnxeZQU1Yry9BD7vzm55n xv1iYeiMTMjeyhgMvC5ECrj MJMgzkbcSLp6KIeyDDHozID 2XANznYMuP5TqPSZdKQ0opo h8SFV7PZndMQVfXsN7EMTtk ZZlSQRxeShmFIlag425HRY4 XmRbLL4hX6Nlr5U6iJ3mkWO qICUapGEaFxJkIZCfla9cjP InDZuzv8HtEZS5xwP1gDNpw BTxXDOuWF84Jpaig9IsFwit XGO5GJQytuPdi8Lyn3vsQvG hwfDuW2exG6NkAWYjCZGlOE BmGtAuaaOxl3Anl0BbeFMal Ob2b1rmAXRhWSYweKkpx7gm MBT5KWZyS9N3gCNqr8iuNAv bUVIajCJ2ogM7MHVtpFLoF2 PcaD9eTDQjKO8vjay8h2jhH VX9RLbaAOYxHdG6wlV2JBFk aXNeNTHoeQlxPLpdt537UPA 8GyDqVSXwt3BuY1VcdAvvL2 9jtIhuI32pQIOycNulkE9md LwpvH0kBrQjQzPrYYnrnTgw bGFpblxmMVxmczIwXGxhbmc aYIRzRUsbJ0jcVcGeMULsjH inXWcyb7MjNYPyRSDaIpgct zIwXHBhciBJIGhhdmUgcGVy w77wETjzpFUvCYZlHKwjTDN caEpvf5SsL1xhHC1aC9CxbA WcieNdpbKnTMmvQUFfh6m4x BPmlPvyk6JmvCUnBH53mwFw EJZpZIP2SUVld9neMD63hem kCfGfrB47kaRjokYoBMEim9 xeR9cayNYwg9Jkp5WsxxWlZ Lgxg5SySG6mpGYxmzilqFH9 SMUriYAjzgKnoiW5pFphXCL psQ6zlA7kgLvtoT9pYxLsHg NpVSknNK0rQKYaP7gjdFVtR HQlSKXeC0niHbCcqR5buMrn KhowrcY0SCXsqm82 Final Diagnosis Comment (test code = [id number]) k2yjhTBxXZDnpYAnBTYpW3p efoOoSIAqmHXjX1VwrqtqUC hvXE2rTL1knVjjfGLajHUpZ DFtHnEih1mpz253fYEtj6gy JPKNvgdqtUs7iVkyS11bx4A 0OxozQ41khCPgUOP3VXHrON PlxBLlSSJoXHZ4NTSkzHYaA 1pnTXBkSF3lchziMNeyYOtd EIWwiNQ4UFCuwNPrZ9LpMDZ kKQbyFNJmlfw9DeInPn6jhC VyeTcyMFxwYXJkXHBsYWluX GZzMjAgRHIuIFRoYWtlciBh bmQgRHIuIFFpdSBoYXZlIHJ spwelf0MgEFHgORGpHHXcMA KnTSGtt18qgAFnf3c2vUW3n YAdBWxuG21ih8ovXiKlGONx cn0= Clinical Information (test code = [id number]) Surveillance colonoscopy; rectal cancer Gross Description (test code = [id number]) f9zheUKvORLlfJWTKYV7BMH fAV6zuJatiFn9pYpmCUGbtl B1tQSeNLrbc7xhRCY0u3eld wTXCdriSBKcET3fFOrhGXHd MV6pPdAzMVWxTpKyBRAgbFX zpaNtIbGgSEHgkPIhsDS1HY NxPK6fzrgfHJwtEJotNUQnl pB9QWDgtAJqI2JlHDXlRJ5i xdrtLAX1WWDADbglTn3pgTF ibHtcZjFcZmNoYXJzZXQwXG Cuv1xtghSZtvelbIr6vS0Sb 5cfv0ycnrEvnZscphErGJbm acWduuXqFsa9WZC5aR5MMGL bW8FtAR4Py9njMNYpcYIpTT Z1IIuih6zqRPvoPUP7UVPpY ZMzPQJzXS1WOhVnDVSmRZT3 QvKhNkW1KPl1EJNEVCLbXMO dAgNcJoL7ZNt1EJFpRF2zIV bjqQNaBZszTcysHLiiP584P SugQATbS7VjJ7NuMZukJjTj EVfmPWMbSMSjKKcyWHEkD5D PWJMpGVO6BRRyOgIuMQs8CI i6FS3EJdAdLOYlAbCaMfP5Q dDcQNc2QZroES2SJHBgFny8 NurbHnUvKGO1XRjrJNp9VMU gXFxzcyAzIFxcZmwgXFxuY3 1ccGFyZCANClxwbGFpblxmc zIwIFNQRUNJTUVOIEFcbHRy L9mkQnBiKadlBJTlGAwwfKF yZCANClxwbGFpblxsdHJjaF donuSsTXOjvVZRKTI6FD7qP FIKDdbduEJhQQAfQNawV2Et VRGoCcKgP7CpX0cgHM2aSCC pcyByZWNlaXZlZCBpbiBmb3 JtYWxpbiBsYWJlbGVkIHdpd GggdGhlIHBhdGllbnQncyBu BP3sGPDLXZOmkJ0dGHTyYZB cOIMsdGJ7eY2njoBcTEHuCJ Wxh01hsNI5zpZbJaLrGN0cY WkaeaVqZRZuFD7kKQNpuo88 ERlov7kpiIOoLFw8sYEwWIY dXtNcnMudl1IdULLhBQtqWN 50ICgxLjUgeCAwLjggeCAwL xVuJ23xLMZklapzkfydQjOs bIAkCdPvlE0lRW65JYCoRMC 1nBtuoGZvxwOdfTb7ZVUbIL Z0pGRomFddHCPpTtkiiBM7X FNlSsKmalQtq6AqaNu2zLBq SFxbTJBxzY6ukN5uLBUsZGV qzaQHHcnaQYChAOigv4CtUC xlcGljWHNhMzAgDQpTYWxhb RBvWQcpGZ6sATJPCAmOO8WO HT8AEPDzeAPBDAS9OR0cLEf aHAWqB0JbC9BfvgS9g8fsmW fqq3ChsHKmAP4nlMZgIT8AK MYxgdUuMYcdE6RtFKSeSiNu DQp9 Disclaimer (test code = [id number]) n7cklUGqPEYej8dfFTOdpIX uZzEwMzNcZnRuYmpcdWMxIH cpcvQyYFolz6QkY8RfNnGzZ FxhbnNpXGRlZmxhbmcxMDMz RTO0nzEgVXLoROyzZRXvLOh gZu8qnPVtsHoiRtUiBNItr2 gdvbUTWMqwUkXiV865YPYpI Wezy3inc2PeSDElpMRec4X0 MFQPsjsfuMi4dWuhO54oe9A 7WytnN2bfWTKiVMHdD9GmPK 3uJSTsRwy3RLO4MVC9MAYyG GJoX0JmBA5cJVBvuDNbSDz1 i8pwbTjeTTMaEPO5l9hoZVs qqhLkMS2nye2ezBd7o8zijr YtMDHzUWVjpLPZJDMlH7Fgg QksMd1ljWk3hIopIbhiAPT5 Emb2SU8vrt97xjr5aSjkGTC wghxiZxW3LOanCWBocecoJI d4OFcpTSSibTM1YKKiyMTzI 2RaCMFoGM3mkfl9RUT8KZcp CCSkQbA3PSPfxQOqCZSnwEb sMWtyq410SKU5KzFhYX8uX9 Wem4D5sL4zpFQxTPGxxCRqQ mBtGJPjwh8zdUSpUVtmr5Zf IEK6tkW6jNIyyWXzMGYtLM3 6Stipf0AoTodpb7XnM44psM D7GAbdx4qsZI0kOeI6noBeY Xuwe5xczZ6vMkG9EZscQU1b HD3fYIDriZ8lyemuIZZsMvO egbdwPBRauLuiwrLwXu0rnW nmJKR1UJyyN9zdfZ5uRaC6C VnxL1dibW9rCRp5IBdbmZU7 WZZoxZ1mCS6oievdc8joTAt qRObtAVGoiuB8xiO1EEAloK BkJ5MogK9vQTUyFI7jpmqjv 1unYJU0BCboXLOuQAG1NzXz XCKfz4Upirg6RtPom4WzjUC bXGssD80ak133ZWGaywPoC8 xwbGFpblxwbGFpblxmMFxmc hB4PJSaxiSgc3QmPUNaVGU5 XSkgYMlekZKfVIDwfUkzq8n zK1UbuQZtWYZoAUooDBSkGW ZzMjBcbGFuZzEwMzNcaGlja FtgMQqnMnJjXYQgADquC6am AfCuR5UzSXGkDnGrrNIwM8t dWNpragJcYPYbxvUywOF9UQ mhR5z5TXXmdrBtoKg6edOoG kUoYQQaGAT3YEftjOArGWNf r2DmuszckIAvUm1tnUHkTLI pyE5lBAAuHPVmQZhxGW2vmJ o1VESFiNPawCNdLlOROZCiG B56wgJnESCCkjpjk6O7DFsi REQsw0FxnKDaR3wok7EzLJU ac99nYB0gd8S3e7gwWQE8VH 2va5DnNRTdxVJnhDAeYHXni 5Rqccvcq6EzXOHiokBgc6Sk ZCBhbmQgaXRzIHBlcmZvcm1 jnaNjKGDdXNXfX0YhspocvV ftyqRfGLSqwn4ifkIlHNQ4B ACATTPfDCDmj1TskT7bsGGD SAZ1gWQdqb1hleMCsUDhFTP mhz88KGCbUP5kY5wyCXPjWT WnlbJnlYTvy1JfSZRozGE6y FNyTD8ZIkFEk27wTBFfIDGN tpZuVAQqiJrirYQ5zoF8tU4 uIChGREEpLlx+IFRoZSBGRE PlRL1fndCxc9TwvwPnnSfbP GWgjSScb1QyaEGjn8GuyCdu c7NckGBzkTGdMM8wVZMijgh dROApVCGHEsSJXLPttnU1x9 PmLSKnPOLzRLV0eXqponx3A TIndB9yWEYfJ1kgfavkVWvb MLXsa8OsfZ0htFFVzBKhm7B vbEVzqZKQpSNoOA7vziXwEP rAYFvRAHX3keMaHYZch1MvA XupB9ywK32jbVcrnSl6eKA0 PZM5lK0bMxp+IFxwYXJccGF yIEFwcHJvcHJpYXRlbHkgcm XpF3VbvrKveV5bdDZglxOuO L9hNS6zA8C0eJWaJOThzpOp q2qzZDhhfsYpVkRmgtDvTFK pTZcsHGMty6QmQFpaAMN3CE lucyBpbmNsdWRpbmcgSCZFL LIRePTuhLYtSLZ8HRijxzBl laLtLO9yfW5fdChzwX5hbDW tnKD4jajdHZErKOTmyIwvZW XbPT3feIelqZ9cHnWtDzGsY HixYU3yPBUmY9hqhZGkUKPe UWEzP3hgZoZknB0kqVtpWXz jZjJcZnMyMFxwYXJccGFyXH BsYWluXGYxXGZzMjBcbGFuZ zEwMzNcaGljaFxmMVxkYmNo UNAfZAsbI7hjZxHbF9DvCKH eYrSsfAXhN1saZRmjIHT1GO QmUM9okBYnJT57uCWbn9hkH PcjxHdhdk1sU37cjMRsGGib iXcdYYFrp28uz8AfPLMtwyT qoz9nIMQksgI8lN9aWKNrkX dgQKRynBXfNUBcb0QkLSejj XRpemVkIGdsYXNzIHNsaWRl nwP7enKixaVfmxTlYPJxbLe uRWDxz5KzPIUyDFxkk5Txae 5ccGFyXHBhciBBbGwgdGVja Y2hE7MkNUTiCKNdxv2wTSUn rP5jLQfvd3TavuhpUNHjJEM uEIInajWnaa4tSKFztMJLBK 9EIFnqdAYcu4MejyXhL7mDL DD5PXRgPwJmDmtpOLPhiMQz eMVwGVZekp98KQJffY8dsXs cVGRlbK6vzW2zdWxbxJ1pEc LoMeLmPIlaII9nTTOdM2tln ELuGDOcTRHxU7vlKtKvgR1e aFxmMVxjZjJcZnMyMFxwYXJ 9fQ== Embedded Images (test code = [id number]) [facility] BRAIN WO CONTRAST WITH [id number] 21:41:52MR BRAIN WO CONTRAST WITH NEUROQUANT COMPARISON: 05/18/2017. HISTORY: Alzheimer's evaluation. TECHNIQUE: Multisequence multiplanar MR images of the brain obtainedwithout IV contrast.Quantitative volumetry of the brain was performed using NeuroQuant([employer], [place], [place]) software packa [employer]. The NeuroQuantanalysis was based on a sagittal 3D volumetric MPRAGE pulse sequence. FINDINGS: The ventricles and cerebral sulci are normal in caliber and configuration.No midline shift, hydrocephalus or pathological extra-axial fluidcollection is present. The basal cisterns are unremarkable. Norestricted diffusion is present to suggest acute infarct. Chronicinfarcts in the right frontal and right occipital lobes. Chronic lacunarinfarcts in the left cerebellar hemisphere, left basal gangliaand leftthalamus. Scattered T2/FLAIR hyperintense foci in the periventricular anddeep white matter are nonspecific but likely sequela of chronicmicrovascular ischemic changes. No abnormal gradient blooming. Mucosal thickening of bilateral paranasal sinuses. Age Related Atrophy report demonstrates: Hippocampal Occupancy Score: 0.7, normative percentile of 21.Hippocampi volume: 5.31 cc, normative percentile of 36.Superior Lateral Ventricles volume: 32.5, normative percentile of 55. Inferior Lateral Ventricles volume: 2.23, normative percentile of 75. The values listed above were within 2 SD of the mean.[facility] [id number] 08:40:51* Test Item Value Reference Range Interpretation Comme nts CEA (test code = [id number]) 4.0 ng/mL 0.0-10.0 MERLINE (test code = MERLINE) CEA Ranges: Non-Smokers ?0-5.0 ng/mLSmokers ? ? ?0-10.0 ng/mLThe [employer] Access CEA immunoassay was used. ?Results obtained with different test methods or kits may be different and cannot be used interchangeably. Lab Interpretation (test code = 41112-6) Normal [facility] [id number] 08:40:51* Test Item Value Reference Range Interpretation Comme nts CEA (test code = 7155012653) 4.0 ng/mL 0.0-10.0 MERLINE (test code = MERLINE) CEA Ranges: Non-Smokers ?0-5.0 ng/mLSmokers ? ? ?0-10.0 ng/mLThe [email or web address] Access CEA immunoassay was used. ?Results obtained with different test methods or kits may be different and cannot be used interchangeably. Lab Interpretation (test code = 40246-4) Normal [facility]2024-07-02 20:37:24* Test Item Value Reference Range Interpretation Comme nts CREATININE (test code = 2160-0) 1.18 mg/dL 0.60-1.25 eGFR (test code = 24385-6) 67.2 mL/min/1.73m2 CKD-EPI eGFR (20 21). Assuming creatinine has been stable day-to-day for at least three months, the eGFR indicates Category G2 (60 - 89 mL/min/1.73 m2) [facility]2024-07-02 20:37:24* Test Item Value Reference Range Interpretation Comme nts CREATININE (test code = 2160-0) 1.18 mg/dL 0.60-1.25 eGFR (test code = 02604-1) 67.2 mL/min/1.73m2 CKD-EPI eGFR (20 21). Assuming creatinine has been stable day-to-day for at least three months, the eGFR indicates Category G2 (60 - 89 mL/min/1.73 m2) [facility] GLUCOSE (AUTOMATED)2023-12-12 13:55:12* Test Item Value Reference Range Interpretation Comme nts POCT GLU (test code = 4679164439) 116 mg/dL 70-110 H Lab Interpretation (test cod e = 20730-0) Abnormal [facility] GLUCOSE (AUTOMATED)2023-12-12 13:55:12* Test Item Value Reference Range Interpretation Comme nts POCT GLU (test code = [id number]) 116 mg/dL 70-110 H Lab Interpretation (test cod e = 05124-2) Abnormal [facility] GLUCOSE (AUTOMATED)2023-12-12 12:00:28* Test Item Value Reference Range Interpretation Comme nts POCT GLU (test code = 0343759708) 89 mg/dL 70-110 Lab Interpretation (test cod e = 27110-0) Normal [facility] GLUCOSE (AUTOMATED)2023-12-12 12:00:28* Test Item Value Reference Range Interpretation Comme nts POCT GLU (test code = 3840305062) 89 mg/dL 70-110 Lab Interpretation (test cod e = 75789-5) Normal [facility] S[facility] [id number] 12:50:11EXAM: ?US ABDOMINAL AORTA SCREEN AAA HISTORY: ?Screen AAA Ordering physician: MAKI OBREGON COMPARISON: None TECHNIQUE: Real-time high-resolution abdominal aortic ultrasound. ? FINDINGS: Abdominal aortic atherosclerotic disease is present. No abdominal aorticaneurysm is identified. Maximal abdominal aortic diameter is 2.6 cm. Iliacbifurcation is preserved. Right common iliac artery diameter of 1.3 cm.Left common iliac artery diameter 1.3 cm. ?[facility] History and Physical Notes Date/Time Note Provider Source 2023-12-12 07:01:51 Interval H&P: I interviewed and examined the patient today. Additionally, I reviewed laboratory results, imaging, and microbiology. Compared to the most recent H&P, there have been no major changes. APT has been held. Prep was completed. The risks of the procedure were explained. All questions were answered, voiced understanding and agreement. Informed written consent was obtained. Plan is to proceed with colonoscopy. Kam Ribera MD 12/12/23 7:02 AM GENERAL SURGERY CLINIC NOTE Reason for Visit / Chief Complaint: surveillance colonoscopy History of Present Illness: Jc Lozano is a 68 year old male with PMHx as below presenting for surveillance colonoscopy. Last colonoscopy was in 2017 when he was admitted to a hospital for stroke and subsequently developed rectal bleeding. Colonoscopy showed presence of rectal tumor which was then treated with robotic LAR and diverting loop ileostomy. Patient was advised to follow up for surveillance colonoscopy in 1 year but did not follow up. He reports bowel movement 3-4 times daily and admits BM is aggravated with food intake. He admits to loose stool but denies watery diarrhea. He reports urinary and fecal incontinence/urgency with coughing and wears a pad daily. Patient reports family history of mother from colon cancer in her 60s. Otherwise, patient denies blood in stool, rectal pain, abdominal pain, nausea, or unintentional weight loss. Patient currently takes Plavix daily. Past Medical History: Past Medical History: Diagnosis Date Acute on chronic combined systolic and diastolic congestive heart failure 06/20/2018 Alcoholism 12/24/2019 Anemia CAD (coronary artery disease) CAD S/P percutaneous coronary angioplasty 06/30/2019 Cerebrovascular accident (CVA) due to thrombosis of carotid artery, unspecified blood vessel laterality 01/28/2017 CHF (congestive heart failure) 06/21/2018 Chronic systolic heart failure 01/28/2017 Combined systolic and diastolic heart failure Coronary artery disease involving [place] coronary artery of [place] heart without angina pectoris 06/20/2018 Essential hypertension 01/28/2017 High cholesterol History of alcohol abuse 12/05/2016 History of closure of ileostomy 04/19/2018 History of CVA (cerebrovascular accident) 2016 History of MA (myocardial infarction) History of rectal cancer HTN (hypertension) well controlled Patient uses snuff 01/28/2017 Rectal cancer 01/28/2017 S/P CABG x 3 (HAIDER to LAD, SVG to PDA, SVG to OM) on 08/13/2019; Dr Andrea 08/13/2019 Stroke 53 years old, left sided weakness Type 2 diabetes mellitus without complication, without long-term current use of insulin 12/05/2016 Type 2 myocardial infarction 06/20/2018 Past Surgical History: Past Surgical History: Procedure Laterality Date COLONOSCOPY N/A 12/25/2016 Surgeon: Bryan Moon MD; Location: [facility] Location CORONARY ARTERY BYPASS GRAFT N/A 08/13/2019 Surgeon: Markus Andrea Jr., MD; [facility] HEMAPORT PLACEMENT N/A 06/15/2017 Surgeon: Ronaldo Mra MD; Location: [facility] OR Location ILEOSTOMY TAKEDOWN N/A 04/19/2018 Surgeon: Hilda Ortiz MD; Location: [facility] LAPAROSCOPIC ROBOTIC ASSISTED LOWER ANTERIOR RESECTION N/A 05/16/2017 Surgeon: Hilda Ortiz MD; Location: [facility] SIGMOIDOSCOPY N/A 05/16/2017 Surgeon: Hilda Ortiz MD; Location: [facility] STENT PLACEMENT (SHX) N/A 12/22/2016 Surgeon: Anesthesiology; Location: [facility] Allergies: No Known Allergies Family History: Family History Problem Relation Age of Onset Colon Cancer Mother possible ovarian cancer too Stroke Father Hypertension Father Diabetes Father Brain Cancer Sister brain tumor Stroke Paternal Grandfather Stroke Paternal Uncle 2 uncles Heart Paternal Uncle another uncle Social History: Social History Socioeconomic History Marital status: Spouse name: Reyna Number of children: 4 Years of education: 14 Occupational History Occupation: [employer] Employer: [employer] Comment: indirect radiation, aerosilzed , coarse iron, cobalt, nickel, magnesium Tobacco Use Smoking status: Former Smokeless tobacco: Former Types: Snuff Tobacco comments: Approx. 1/2 can per day Substance and Sexual Activity Alcohol use: Yes Comment: pint of liquor each week Drug use: No Social Determinants of Health Financial Resource Strain: Low Risk (10/25/2023) Overall Financial Resource Strain (CARDIA) Difficulty of Paying Living Expenses: Not hard at all Food Insecurity: No Food Insecurity (10/25/2023) Hunger Vital Sign Worried About Running Out of Food in the Last Year: Never true Ran Out of Food in the Last Year: Never true Transportation Needs: No Transportation Needs (10/25/2023) PRAPARE - Transportation Lack of Transportation (Medical): No Lack of Transportation (Non-Medical): No Physical Activity: Sufficiently Active (10/25/2023) Exercise Vital Sign Days of Exercise per Week: 2 days Minutes of Exercise per Session: 120 min Stress: No Stress Concern Present (10/25/2023) [place] of Occupational Health - Occupational Stress Questionnaire Feeling of Stress : Not at all Social Connections: Moderately Isolated (10/25/2023) Social Connection and Isolation Panel [NHANES] Frequency of Communication with Friends and Family: More than three times a week Frequency of Social Gatherings with Friends and Family: Once a week Attends [employer] Services: Never Active Member of Clubs or Organizations: No Attends Club or Organization Meetings: Never Marital Status: Intimate Partner Violence: Not At Risk (10/25/2023) Humiliation, Afraid, Rape, and Kick questionnaire Fear of Current or Ex-Partner: No Emotionally Abused: No Physically Abused: No Sexually Abused: No Housing Stability: Low Risk (10/25/2023) Housing Stability Vital Sign Unable to Pay for Housing in the Last Year: No Number of Places Lived in the Last Year: 1 Unstable Housing in the Last Year: No Review of Systems (BOLDED if positive. Otherwise negative.) General: weight changes, fatigue, fever Eyes: corrective lenses, pain, blurred vision ENT: hearing problems, earaches, allergies, nose bleeds Skin: rashes, lumps Respiratory: cough, wheeze, shortness of breath Cardiac: chest discomfort, palpitations Gastrointestinal: swallowing problems, nausea/vomiting, blood in stool, abdominal pain Musculoskeletal: muscle cramps, back pain, joint pain, weakness, tingling, pain in feet Immunologic: food allergies, recurrent infections Urinary: increased frequency, burning, urinating at night, incontinence, blood in urine Psychiatric: anxiety, depression Endocrine: thyroid trouble, diabetes Neurologic: fainting, seizures, loss of memory, headaches, numbness, stroke Hematologic: anemia, bleeding problems, transfusion reaction Physical Exam: BP (!) 150/81 | Pulse 71 | Temp 36.6 ?C (97.8 ?F) (Temporal Artery) | Resp 18 | Ht 1.727 m (5' 8") | Wt 78 kg (172 lb) | SpO2 92% | BMI 26.15 kg/m? Constitutional: Awake, alert, oriented, in no acute distress Cardiovascular: Hemodynamically stable Respiratory: Symmetry of chest wall motion, no respiratory distress GI: Soft, nontender, non-distended Extremities: No clubbing, cyanosis, or edema Skin: Warm and dry, capillary refill <2 seconds, no jaundice, rashes, lesions, or erythema Psychiatric: Appropriate mood and affect, no obvious deficits of insight or judgment Assessment: Jc Lozano is a 68 year old male who presents for surveillance colonoscopy. Patient has a history of rectal cancer treated with robotic low anterior resection and ileostomy. Patient did not undergo 1 year surveillance colonoscopy nor maintain a regular follow up. He has a family history of mother who is from colon cancer in her 60s. Plan: Schedule surveillance colonoscopy with MiraLAX bowel preparation. Risks including bleeding and perforation, benefits, alternatives of colonoscopy were discussed with the patient; all questions answered; informed consent obtained. Instructed to hold Plavix 5 days prior to the procedure MICHELLE StricklandS2 Attending Attestation: I personally evaluated and examined the patient on 11/16/2023 and agree with FILIPE Kay's note as written. I actively participated in the decision-making process. Please see the resident's note for additional details. 68 YO M diagnosed with rectal cancer in 2016, underwent neoadjuvant chemo/XRT followed by LAR with diverting loop ileostomy, and then underwent ileostomy reversal who presents for surveillance colonoscopy. He has not undergone colonoscopy since surgery. Reports 3 loose BM's daily with fecal urgency and incontinence, no blood in stool. Will schedule surveillance colonoscopy with Miralax prep. Risks/benefits explained, consent obtained in clinic. Giovanna Wilder M.D. 12/12/2023 07:02 Associated attestation - Giovanna Wilder MD - 12/12/2023 7:21 AM CDT Attending Attestation: I personally evaluated and examined the patient on 12/12/[address] Ribera's interval note as written. I actively participated in the decision-making process. Please see the resident's note for additional details. No interval changes, last dose of Plavix 6 days ago, completed bowel prep and is ready, consent signed and in chart, proceed with surveillance colonoscopy. Giovanna Wilder M.D. 12/12/2023 07:20 TIFFANI-SURGERY [facility] Notes Date/Time Note Provider Source 2024-02-15 14:34:25 Encounter closed as part of [facility] chart maintenance. Encounter has been open greater than 72 hours with no recent documentation. Rosina Arreaga RN, BSN [facility] Triage Nurse [facility] Rosina Arreaga RN [facility] 2024-02-15 14:00:00 Images from the original note were not included. Venipuncture collection performed by clean technique on the right anticubitus. Total of 1 attempts were made. Slight pressure and a bandage/dressing were applied to the site(s). The patient experienced no complications. The following specimens were processed according to instructions and sent to [facility] laboratories per lab order on 02/15/2024: LT BLUE 1 SST 1 RED LAV 1 PPT DK GREEN (LiHep) DK GREEN (SodH) SANTO DK BLUE (K2) DK BLUE (S) ACD Blood Culture NIPT/NTD [facility] 2024-02-13 14:54:21 Lab orders in. [facility] 2024-02-13 10:43:32 Called patient to schedule Left Heart Cath, Coronary Angiography with Dr. Knowles. Patient agreed to have procedure on 02/20/24.Lab work on 02/15/24 [place] [facility] 2024-02-06 13:20:46 TTE reviewed showing an EF of 30-35% MPI images were also reviewed revealing inferior as well as anterolateral fixed perfusion defects with some reversibility. I discussed the findings with Mr. Mcleanny Blake over the phone and in person. I also discussed those findings over the phone with Dr. Estrada. Agreed on proceeding with Left heart cath to assess coronary/bypass grafts patency and whether meaningful revascularization is possible. Based on Dr. Estrada's assessment, colon surgery can be postponed if DAPT will be needed for 3 months the shortest after PCI (if required). [facility] case request placed. Noemi Quinonez MD advanced nursing professor. Division of cardiovascular medicine [facility] T [facility] 2024-02-06 09:28:58 Images from the original note were not included. Notified patient per Dr Quinonez: Noemi Quinonez MD P Cardiology Nurse Stress and echo results reviewed. The heart function is still reduced (almost similar to before). Stress test showed area of fixed defect consistent with old infarction. Will discuss findings with Dr. Estrada regarding perioperative optimization. Patient verbal understanding. [facility] 2024-02-06 08:18:34 I have reviewed all tests performed. Further optimization will be required prior to surgery unless surgery is deemed to be urgent and delay is not advisable. Communicated my plan to Dr. Estrada. [facility] 2024-02-05 08:18:19 Much appreciated. T [facility] 2024-02-02 13:47:13 Will route to for cbc lab review. [facility] 2024-02-02 13:09:18 Jc Lozano is a 68 year old male patient calling for refill on Clopidogrel 75 mg and Losartan 50 mg. Please call [phone] currently out of medication [facility] [address] [place] [id number] [address] Kelly [facility] 2024-02-02 12:05:56 Losartan is out. [facility] 2024-02-02 07:09:[address] Quinonez to review the echo/stress test results. IM-CARDIOVASCULAR DISEASE STAFF [facility] 2024-02-01 16:37:26 I have called Mr Lozano and explained the situation. He understands and is agreeable to proceed with additional cardiac optimization. He will return to my clinic on his post op appointment date already scheduled and we will review his work up and determine another appropriate date for surgical rescheduling. Stephanie Estrada MD 02/01/2024 4:38 PM Colon and Rectal Surgery [facility] 2024-02-01 16:30:39 Patient presented for stress test today. Results pending. Spoke with Dr. Samuels regarding results and planned surgery for tomorrow. Dr. Samuels states patient needs further cardiac work up before he can be cleared for surgery. Dr. Estrada made aware and states she will contact patient. Please keep Dr. Estrada/[facility] Surg Spec Nurse abreast of plan of care and clearance for surgical planning of colorectal cancer. Thank you. Dona Cannon RN [facility] 2024-02-01 15:00:01 Summary: [facility] Therapy Plan Jc Lozano is a 68 year old y/o /White male patient referred to the [facility] Specialty Pharmacy for management of Repatha and appropriateness of therapy which is being used to treat the diagnosis of mixed hyperlipidemia, statin intolerance. Jc Lozano is Na?e to therapy. I spoke to the patient and provided education and counseling on administering Repatha SureClick. The stage of Jc Lozano active disease is Other not at goal. LDL = 163 The current specialty medication regimen is: Repatha SureClick 140 mg inject 1 mL under the skin every 2 (two) weeks will be started on: 02/09/2024 Concurrent medications used to treat mixed hyperlipidemia, statin intolerance: Zetia 10 mg Previously trialed medications: statins While speaking with the patient, the Specialty Pharmacist has reviewed and updated the: medication list and allergy list Patient's most recent discharge from a hospital admission related to their specialty condition: The patient has not had a recent hospitalization related to their specialty condition. The [facility] Specialty Pharmacist has reviewed: The H&P, treatment recommendations, and all provider encounters relevant to the management of mixed hyperlipidemia, statin intolerance: No contraindication to therapy Comorbid conditions: No contraindication to therapy Risk factors identified related to specialty medication therapy and condition: None identified Pertinent labs reviewed: CBC with differential, Complete metabolic panel, Liver function tests (LFTs), and Triglycerides After review, the prescribed medication is clinically appropriate. Specific requirements for the management of mixed hyperlipidemia, statin intolerance: Recommended vaccinations: Influenza Goals of therapy based on therapy plan: Stabilize and Improve QOL Patient self-reported goals of therapy: Stabilize and Improve QOL Based on current therapy, patient progress towards established goals include: New to therapy Education and counseling performed during this encounter: Purpose: Explained that the medication blocks certain cells that play a role in the condition and to reduce the risk of myocardial infarction, stroke, and coronary revascularization in adults with established cardiovascular disease Expected benefit: Explained that the patient will see ongoing improvement in lipid profile, assisted benefit explained. Storage: The medication will be stored in its original container in the refrigerator. Advise the patient to take it out and leave it at room temperature for 30 to 45 minutes to prevent pain and discomfort with cold injections. Preparation: Injection site selection: outer arms, upper thighs, and stomach area. Stomach has the best absorption (1 thumb away from the belly button on the left, right, or top, but never below). Wash hands and clean the area with an alcohol swab. Discussed the product anatomy and instructions. Advised patient to check for clarity of drug concentration prior to injecting by assessing if CLEAR or CLOUDY. Disposal: Advised the patient to dispose pen and needles in a sharps container as they are not reusable. An alternate to the red sharps container is a hard-shell plastic that cannot be punctured through, such as an empty detergent bottle. Common side effects: Signs and symptoms of an infection (upper respiratory infection; cold, fever, chills); headache, myalgias. If it does not improve, then reach out to HCP. Infection Prevention: Stay updated with vaccinations Home Delivery Process: If the patient chooses to have the medications delivered home, someone needs to be at home to receive the packaged medication. The medication can only sit in the ice box for 6 to 8 hours, and then it needs to be refrigerated. [facility] will dispense and mail out Repatha Sureclick on 02/07/2024, patient will administer on 02/09/2024. The shipping address confirmed was [address] [place] [id number]. A comprehensive Welcome Packet is accessible to all patients via the [facility]'s website. For patients who may not have internet access, a printed copy is included with their medication shipment or provided during medication pick-up. Thank you, Awilda Galindo [facility] Special[facility] Pharm[facility]ilda Gal[facility] 2024-02-01 10:23:14 Jc Lozano is a 68 year old male received to Nuclear Medicine for Stress Test. Pt is AAOx4 and is in NAD. Pt identified using Name & . Pt endorses being NPO since 01/31/24 0800. Indication for this Stress Test is CAD Last caffeine intake @ 01/31/24 NM Tech monitoring is Rik Supervising physician Arvind obtained consent at 1050 Time out completed 1020 Lexiscan 0.4mg/5mL injected at 1051, followed by 5mL NS flush. Pre Stress Test vitals are: BP 136/66 HR 48 Resp 16 O2 sat 95 Injection vitals are: BP 139/60 HR 71 Resp 16 O2 sat 97 Recovery vitals are: BP 135/69 HR 73 Resp 16 O2 sat 99 [facility] 2024-01-31 13:30:42 Zuhair, The prior authorization has been approved for the following medication: Drug: REPATHA Insurance: SKYE PA#: [id number] PA Expires: 01/30/25 CoverMyMeds Chase: [id number] We will be reaching out to the patient to schedule a pick up truck driver or delivery of the medication and general counsel the patient on use. Thank you YT [facility] 2024-01-30 10:56:22 Jc Lozano did not follow prep instructions for stress tests that was to be preformed today 01/30/24, therefore stress test was canceled and rescheduled for 02/01/24, which is their soonest available appointment. Please advise if patient is to remain scheduled for surgery on 02/02/24 as he would now be preforming his bowel prep on the same day as his stress test. Please advise. Thank you. Dona Cannon RN [facility] 2024-01-30 08:30:00 Summary: Per Kareen in BB band pt due to having transfusion lately. Images from the original note were not included. Venipuncture collection performed by clean technique on the right anticubitus. Total of 1 attempts were made. Slight pressure and a bandage/dressing were applied to the site(s). The patient experienced no complications. The following specimens were processed according to instructions and sent to [facility] laboratories per lab order on 01/30/2024: LT BLUE SST 1 RED LAV 2 PPT DK GREEN (LiHep) DK GREEN (SodH) SANTO DK BLUE (K2) DK BLUE (S) ACD Blood Culture NIPT/NTD [facility] 2024-01-26 11:56:48 TTE scheduled 01/30/24 Esme Jones RN [facility] 2024-01-26 11:41:43 ----- Message from Noemi Quinonez MD sent at 01/21/2024 5:37 PM CDT ----- Good day everyone Wish you had a good weekend. Please try to ensure this patient will have a TTE ASMITA prior to a scheduled colectomy surgery. I would also recommend obtaining a nuclear stress test prior to surgery. I don't know if we can get this soon enough (surgery is on 02/02/2024). Appreciate your help. Noemi Quinonez MD advanced nursing professor. Division of cardiovascular medicine [facility] 2024-01-25 08:30:00 Images from the original note were not included. Venipuncture collection performed by clean technique on the left anticubitus. Total of 1 attempts were made. Slight pressure and a bandage/dressing were applied to the site(s). The patient experienced no complications. The following specimens were processed according to instructions and sent to [facility] laboratories per lab order on 01/25/2024 : LT BLUE SST 1 RED LAV 2 PPT DK GREEN (LiHep) DK GREEN (SodH) SANTO DK BLUE (K2) DK BLUE (S) ACD Blood Culture NIPT/NTD T [facility] 2024-01-04 11:30:00 Images from the original note were not included. Patient has been identified by and name and was provided with cup, antiseptic towelette, and clean catch instructions. 1 urine specimen(s) sent. Unpreserved Urine Culture 1 Aptima tube Other urine [facility] 2024-01-02 09:53:27 Spoke with pharmacy and RX picked up by patient. Sakina Gonzalez RN [facility] 2023-12-29 10:28:29 Images from the original note were not included. PA rec'd for Tolterodine Tartrate ER 2MG ER Capsules in nurses box. Chase [id number] Rashmi hPillips [facility] 2023-12-20 14:01:57 Pt given printed and verbal discharge instructions regarding COPD exacerbation, encouraged hydration. Prescriptions provided. Pt verbalized understanding of instructions, pt awake alert oriented, resp reg unlabored, skin w/d, color appropriate for race, moves all ext well,pt encouraged to follow up with pcp. Advised to seek medical attention for new/prolonged/worsening of symptoms. No adverse reaction to meds given in ER noted upon discharge. Awake, alert oriented, resp reg unlabored, skin w/d, pt leaving amb with steady gait, in no apparent distress, accompanied by significant other. Carla Westfall RN [facility] 2023-12-20 12:58:17 Pt arrived via private car with c/o sob; he reports he normally uses a neb machine but has been unable to use it due to not having electricity. He reports he does not have a HHN. Rachel Buckley RN [facility] 2023-11-27 15:49:25 Images from the original note were not included. Your upcoming procedure is at [facility] on 12/12/23. The address is [address] [place] [address], [id number].The nursing staff at [facility] will call you the workday before your procedure to let you know what time to arrive. When you arrive, please go inside and sign in at the desk. Please note: You may not travel home alone after your procedure and that includes in a taxi or by bus. We must speak to your Responsible Adult (who will be picking you up) the morning of your procedure, before the start of your procedure. This person must be an adult over the age of 18 years of age. Maintain a clear liquid diet the entire day before your procedure. Do not drink anything containing red, blue, or purple dyes. Follow the instructions of your bowel prep as directed by you physician. You may also take your medications the morning of your procedure with a sip of water as directed by physician. Anticoagulants will be per physician Guidance. Medication Note(s)/Instructions: Will hold ASA and Plavix five days prior to procedure per MD instruction.Instructed to hold iron one week prior to procedure, hold losartan day before and morning of procedure, and hold Glipizide and furosemide morning of procedure. Both patient and person accompanying and/or picking patient up must be able to wear a mask and be without symptoms of COVID 19. Pending screening, a COVID test may be required. If a patient tests positive, their cases are cancelled and/or rescheduled. COVID NOTE: Denies COVID symptoms or exposure, no testing required. Additional questions, concerns, requests:CB number provided. Patient verbalized understanding of pre-op instructions and voiced no further questions at this time. [facility] 2023-11-20 16:25:06 Patient request procedure to be in December due to other planned appts he has in November. He schedule procedure for 12/12/23 Belkys Martínez [facility] 2023-11-20 13:47:48 Patients spouse notified of results/recommendations, understanding was verbalized via teach back. Sakina Gonzalez RN [facility] 2023-11-17 12:02:28 Moderate cardiac risk. Ok to hold plavix 5 days before procedure. [facility] 2023-11-17 10:18:17 The following patient is scheduled for Colonoscopy with Giovanna Wilder at [facility] Surgery Department. The procedure is currently scheduled on TBD and requires Cardiac clearance prior to the procedure. Please submit the following: Note indicating Cardiac clearance risk level 2. Most recent office note date 3. Recent tests (if not accessible in Epic): Labs, EKG, Echo, etc 4. Information on implantable devices (pacemaker, AICD, last interrogation, device type with response to magnet and most recent EP report) 5. Perioperative recommendations / 6. Optimization for surgery, any needs for cardiac testing prior to having surgery 7. Patient has reported taking the following anticoagulation:Plavix Please provide instructions for holding prior to procedure. Thank you, Luann Hines LVN Luann Hines LVN [facility] 2023-11-10 11:22:27 Rx was not successfully sent electronically, resubmitted and confirmed. Left VM, will forward to provider for review of additional medication request. Disp Refills Start End PRO flash glucose sensor (FREESTYLE KRISTIN 2 SENSOR) Kit 2 Kit 11 11/10/2023 -- -- Si Each every 14 (fourteen) days. Sent to pharmacy as: FreeStyle Kristin 2 Sensor kit (flash glucose sensor) Class: eRX Route: Miscellaneous (Supplies-Non Drugs) Order: [id number] Date/Time Signed: 11/10/2023 11:21 E-Prescribing Status: Receipt confirmed by pharmacy (11/10/2023 11:22 AM CDT) [facility] 2023-11-10 11:01:11 Copied from [facility] #[id number]. Topic: Clinical - Order >> November 10, 2023 10:59 AM Patient [employer] wrote: Jc Lozano is a 68 year old male Pt is calling stating that he was seen in clinic yesterday. Pt is stating that the pharmacy has not received a prescription for flash glucose sensor (FREESTYLE KRISTIN 2 SENSOR) Kit . Also pt states he needs the prescription for Ozempic to be changed to something else. Pt states the Ozempic is $500.00 even with insurance. Please advise. [phone] (home) [facility] [place] [address] Freda Gaytan [facility] 2023-10-30 13:21:37 Referral has been faxed and confirmation received. [facility] 2023-10-30 12:02:24 Copied from [facility] #[id number]. Topic: Clinical - Referral >> October 30, 2023 11:58 AM Patient [employer] wrote: Pt called to follow up on eye referral being sent to Dr. Neftaly Bai in [place]. Please send to [phone] and include demographic sheet as well. [facility] [address] [place] [address] Office: Yuliana Feldman [facility] 2023-10-26 09:30:00 Images from the original note were not included. Venipuncture collection performed by clean technique on the left anticubitus. Total of 1 attempts were made. Slight pressure and a bandage/dressing were applied to the site(s). The patient experienced no complications. The following specimens were processed according to instructions and sent to [facility] laboratories per lab order on 10/26/2023 : LT BLUE SST 2 RED LAV 1 PPT DK GREEN (LiHep) 1/ DK GREEN (SodH) SANTO DK BLUE (K2) DK BLUE (S) ACD Blood Culture NIPT/NTD [facility] 2023-10-25 16:15:00 Images from the original note were not included. Could not pull Vit B6 & Vit B1, expected collection date is 10/26/2023. Pt wanted to do all blood work together. Will be available to come back Monday. Patient has been identified by and name and was provided with cup, antiseptic towelette, and clean catch instructions. 2 urine specimen(s) sent. Unpreserved 1 Urine Culture 1 Aptima tube Other urine T [facility] [employer] 2023-02-02 08:53:08 Formatting of this n ote might be different from the original. Images from the original note were not included. Notified patient's spouse Reyna per Dr. Thakkar: Paul Thakkar MD P Cardiology Nurse His cholesterol is still suboptimal. Add Zetia 10 mg daily. Patient's spouse verbal understanding. RX sent to pharmacy of choice. ([facility] in [place]) T [facility] [employer] [facility] 2023-02-01 11:00:00 Formatting of this n ote is different from the original. Images from the original note were not included. Venipuncture collection performed by clean technique on the left anticubitus. Total of 1 attempts were made. Slight pressure and a bandage/dressing were applied to the site(s). The patient experienced no complications. The following specimens were processed according to instructions and sent to [facility] laboratories per lab order on 02/01/2023 : LT BLUE SST 1 RED LAV 1 PPT DK GREEN (LiHep) DK GREEN (SodH) SANTO DK BLUE (K2) DK BLUE (S) ACD Blood Culture NIPT/NTD T [facility] [employer] [facility]
[2024-02-16] MEDS ORDERED: NA CHLORIDE 0.9% 1,000 ML ONE (16:30)
[2024-02-16 16:57] LABS: Absolute Lymphocytes (CBC) 0.5 K/uL (0.7-4.9); Absolute Monocytes 0.5 K/uL (0.1-1.3); Absolute Neutrophil 9.7 K/uL (1.8-8.0); Basophils % 0.4 % (0-1.3); Eosinophils % 0.3 % (0-4.4); Hematocrit 40.4 % (39.6-49.0); Hemoglobin 13.5 g/dL (13.6-17.9); Lymphocytes % 4.9 % (15.3-44.8); MCH 30.2 pg (27.0-35.0); MCHC 33.3 g/dL (32.0-36.0); MCV 90.7 fL (80-100); MPV 7.7 fL (7.6-11.3); Monocytes % 4.3 % (3.3-12.3); Neutrophils % 90.1 % (41.7-73.7); Platelets 319 thou/uL (152-406); RBC Red Blood Cell Count 4.45 M/uL (4.33-5.43); Red Cell Distribution Width 14.7 % (12.1-15.2)
[2024-02-16 17:03] LABS: PT Prothrombin Time 11.4 SECONDS (9.4-12.5); Protime INR 1.02
[2024-02-16 17:16] LABS: ALT/SGPT 28 U/L (16-61); AST/SGOT 21 U/L (15-37); Albumin 3.7 g/dL (3.4-5.0); Albumin/Globulin Ratio 0.9 (1.1-1.8); Alkaline Phosphatase 62 U/L (45-117); Anion Gap 12.6 mEq/L (5.0-15.0); BUN Blood Urea Nitrogen 32 mg/dL (7-18); Bicarbonate 27 mEq/L (21-32); Bilirubin Total 0.4 mg/dL (0.2-1.0); Globulin 4.1 g/dL (2.3-3.5); Glomerular Filtration Rate 52 ml/min (=/>90); Glucose Level 159 mg/dL (74-106); Lipase 45 U/L (13-75); Magnesium 2.4 mg/dL (1.6-2.4); NT PRO-BNP 242 pg/mL (<125); Potassium 4.6 mEq/L (3.5-5.1); Protein, Total 7.8 g/dL (6.4-8.2); Sodium Level 137 mEq/L (136-145); Troponin High Sensitivity 19.6 pg/mL (<58.9)
[2024-02-16 17:17] LABS: Bilirubin Direct < 0.2 mg/dL (0-0.2); Bilirubin Indirect, Calculated 0.2 mg/dL (0.2-0.8)
--- NOTE | 2024-02-16 17:20 | EDPHYS ---
Physician Documentation [facility] Name: Jc Lozano Age: 68 yrs Sex: Male : 1955 Arrival Date: 02/16/2024 Time: 16:09 Bed 4 Private MD: ED Physician Doron Shafer HPI: 02/15 17:10 This 68 yrs old Male presents to ER via EMS with complaints of Altered Mental damon Status. 17:10 The patient presents with decreased mental status, decreased responsiveness. Onset: The damon symptoms/episode began/occurred just prior to arrival. Possible causes: CVA or TIA, low blood sugar. Associated signs and symptoms: Pertinent positives:. Current symptoms: In the emergency department the patient's symptoms have improved, markedly, is more alert. Patient's baseline: Neuro: alert and fully oriented. The patient has experienced similar episodes in the past, a few times. Historical: - Allergies: 16:23 No Known Allergies; rs5 - PMHx: 16:23 CHF; Diabetes - NIDDM; CVA; Hypertension; rs5 16:23 Chronic obstructive lung disease; rs5 - PSHx: 16:23 None; rs5 - Immunization history:: Adult Immunizations up to date. - Infectious Disease History:: Denies. - Social history:: Smoking status: Patient/guardian denies using tobacco, but has a distant history of tobacco abuse. ROS: 17:11 Constitutional: Negative for fever, chills, and weight loss, Eyes: Negative for injury, damon pain, redness, and discharge, ENT: Negative for injury, pain, and discharge, Neck: Negative for injury, pain, and swelling, Cardiovascular: Negative for chest pain, palpitations, and edema, Respiratory: Negative for shortness of breath, cough, wheezing, and pleuritic chest pain, Abdomen/GI: Negative for abdominal pain, nausea, vomiting, diarrhea, and constipation, Back: Negative for injury and pain, : Negative for injury, bleeding, discharge, and swelling, MS/Extremity: Negative for injury and deformity, Skin: Negative for injury, rash, and discoloration, Psych: Negative for depression, anxiety, suicide ideation, homicidal ideation, and hallucinations, Allergy/Immunology: Negative for hives, rash, and allergies, Hematologic/Lymphatic: Negative for swollen nodes, abnormal bleeding, and unusual bruising, 17:11 Neuro: Positive for near syncope, weakness, 17:11 Endocrine: Positive for low blood glucose, 17:28 Abdomen/GI: Positive for nausea and vomiting, no coffee grounds , dark, no gross blood, damon heavy etoh last night , told to stop aspirin , plavix, Exam: 17:11 Constitutional: This is a well developed, well nourished patient who is awake, alert, damon and in no acute distress. Head/Face: Normocephalic, atraumatic. Eyes: Pupils equal round and reactive to light, extra-ocular motions intact. Lids and lashes normal. Conjunctiva and sclera are non-icteric and not injected. Cornea within normal limits. Periorbital areas with no swelling, redness, or edema. ENT: Nares patent. No nasal discharge, no septal abnormalities noted. Tympanic membranes are normal and external auditory canals are clear. Oropharynx with no redness, swelling, or masses, exudates, or evidence of obstruction, uvula midline. Mucous membranes moist. Neck: Trachea midline, no thyromegaly or masses palpated, and no cervical lymphadenopathy. Supple, full range of motion without nuchal rigidity, or vertebral point tenderness. No Meningismus. Chest/axilla: Normal chest wall appearance and motion. Nontender with no deformity. No lesions are appreciated. Cardiovascular: Regular rate and rhythm with a normal S1 and S2. No gallops, murmurs, or rubs. Normal PMI, no JVD. No pulse deficits. Respiratory: Lungs have equal breath sounds bilaterally, clear to auscultation and percussion. No rales, rhonchi or wheezes noted. No increased work of breathing, no retractions or nasal flaring. Abdomen/GI: Soft, non-tender, with normal bowel sounds. No distension or tympany. No guarding or rebound. No evidence of tenderness throughout. Back: No spinal tenderness. No costovertebral tenderness. Full range of motion. Male : Normal genitalia with no discharge or lesions. Skin: Warm, dry with normal turgor. Normal color with no rashes, no lesions, and no evidence of cellulitis. MS/ Extremity: Pulses equal, no cyanosis. Neurovascular intact. Full, normal range of motion. Neuro: Awake and alert, GCS 15, oriented to person, place, time, and situation. Cranial nerves II-XII grossly intact. Motor strength 5/5 in all extremities. Sensory grossly intact. Cerebellar exam normal. Normal gait. Psych: Awake, alert, with orientation to person, place and time. Behavior, mood, and affect are within normal limits. 17:11 ECG was reviewed by the Attending Physician. 17:29 Abdomen/GI: Rectal exam: is unremarkable, Prostate: normal, rectal tone normal, Stool: damon normal, hemorrhoid(s), are not appreciated, mass, is not appreciated, swelling, is not appreciated, tenderness, that is mild, fecal impaction, is not appreciated, Liver: no appreciated palpable abnormalities, Hernia: not appreciated, Vital Signs: 16:15 BP 170 / 110; Pulse 84; Resp 17; Temp 98(O); Pulse Ox 97% on R/A; rs5 17:01 BP 155 / 89; Pulse 80; Resp 16; Pulse Ox 99% on R/A; rs5 17:01 BP 157 / 84; Pulse 77; Resp 17; Pulse Ox 98% on R/A; rs5 17:55 BP 150 / 80; Pulse 70; Resp 17; Pulse Ox 99% on R/A; rs5 MDM: 16:15 Patient medically screened. damon 17:14 Differential Diagnosis: CVA, electrolyte abnormality, alcohol intoxication, damon hypoglycemia, intracranial bleed, overdose, pneumonia, sepsis, TIA, UTI, volume depletion. Data reviewed: vital signs, nurses notes, EMS record, lab test result(s), EKG, radiologic studies, plain films. Consideration of Admission/Observation Escalation of care including admission/observation considered. I considered the following discharge prescriptions or medication management in the emergency department Medications were administered in the Emergency Department. See MAR. Independent interpretation of the following test(s) in the Emergency Department EKG: See my EKG interpretation above. Test considered but Not performed: CT: no ct brain , pt refused. Historians other than the Patient: EMS: ems well informed. Care significantly affected by the following chronic conditions: Diabetes, Hypertension, Congestive Heart Failure, Obesity. Counseling: I had a detailed discussion with the patient and/or guardian regarding the historical points, exam findings, and any diagnostic results supporting the discharge/admit diagnosis, lab results, radiology results, the need for outpatient follow up, for definitive care, a family practitioner. 02/15 16:16 Order name: Basic Metabolic Panel; Complete Time: 17:18 damon 09/06 16:16 Order name: CBC with Diff; Complete Time: 17:18 [facility] 02/15 16:16 Order name: LFT's; Complete Time: 17:18 [facility] 02/15 16:16 Order name: Magnesium; Complete Time: 17:18 [facility] 02/15 16:16 Order name: NT PRO-BNP; Complete Time: 17:18 [facility] 02/15 16:16 Order name: PT-INR; Complete Time: 17:18 [facility] 02/15 16:16 Order name: Troponin HS; Complete Time: 17:18 [facility] 02/15 16:16 Order name: Lipase; Complete Time: 17:18 [facility] 02/15 16:53 Order name: Glucose, Ancillary Testing; Complete Time: 17:18 EDMS 02/15 16:55 Order name: Glucose, Ancillary Testing EDAL 02/15 16:16 Order name: XRAY Chest (1 view); Complete Time: 17:27 [facility] 02/15 16:16 Order name: Cardiac monitoring; Complete Time: 16:26 [facility] 02/15 16:16 Order name: EKG - Nurse/Tech; Complete Time: 17:04 [facility] 02/15 16:16 Order name: IV Saline Lock; Complete Time: 16:26 [facility] 02/15 16:16 Order name: Labs collected and sent; Complete Time: 16:46 [facility] 02/15 16:16 Order name: O2 Per Protocol; Complete Time: 16:26 [facility] 02/15 16:16 Order name: O2 Sat Monitoring; Complete Time: 16:26 [facility] 02/15 16:16 Order name: PO challenge: juice; Complete Time: 16:28 [facility] EC:11 Rate is 82 beats/min. Rhythm is regular. QRS [place] is Normal. MI interval is normal. QRS damon interval is normal. QT interval is normal. T waves are Normal. No ST changes noted. Clinical impression: NSR w/ Non-specific ST/T Changes and No evidence of ischemia. Interpreted by me. Reviewed by me. Administered Medications: 16:30 Drug: NS 0.9% IV 1000 ml IV at 125 ml/hr continuous Route: IV; Rate: 125 ml/hr; Site: rs5 right antecubital; 18:01 Follow up: IV Status: IV converted to saline lock; IV Intake: 500ml rs5 17:50 Drug: Pantoprazole IVP 80 mg IVP once Route: IVP; Site: right antecubital; rs5 18:01 Follow up: Response: No adverse reaction rs5 17:50 Drug: Ondansetron IVP 4 mg IVP once; over 2 minutes Route: IVP; Site: right antecubital;rs5 18:01 Follow up: Response: No adverse reaction rs5 17:50 Drug: Sucralfate PO 1 grams PO once Route: PO; rs5 Disposition Summary: 02/16/24 17:20 Discharge Ordered Notes: Location: Home [facility] Problem: new damon Symptoms: have improved damon Condition: Stable damon Diagnosis - Adverse effect of insulin and oral hypoglycemic [antidiabetic] drugs [facility] - Altered mental status, unspecified - resolved [facility] - Acute gastritis without bleeding [facility] - Alcohol abuse [facility] Followup: damon - With: Private Physician - When: 2 - 3 days - Reason: Recheck today's complaints, Re-evaluation by your physician Followup: damon - With: Elissa Torres MD - When: 2 - 3 days - Reason: Recheck today's complaints, Re-evaluation by your physician Discharge Instructions: - Discharge Summary Sheet [facility] - Gastritis, Adult damon - Hypoglycemia [facility] - Gastritis, Adult, Subc-dm-Kerb [facility] - Alcohol Abuse and Nutrition [facility] - Hypoglycemia, Hbaf-hm-Qtya [facility] Forms: - Medication Reconciliation Form [facility] - Antibiotic Education [facility] - Prescription Opioid Use [facility] - Patient Portal Instructions [facility] - Leadership Thank You Letter [facility] Prescriptions: - ondansetron 4 mg Oral Tablet,disintegrating - take 1 tablet ORAL route every 6 to 8 hours for 5 days; 20 tablet; Refills: 0, [facility] Product Selection Permitted - Carafate 1 gram Oral Tablet - take 1 tablet ORAL route 4 times per day take on an empty stomach, beginning on damon waking and last dose at bedtime; 100 tablet; Refills: 0, Product Selection Permitted - Protonix 40 mg Oral tablet, delayed release (enteric coated) - take 1 tablet ORAL route every 12 hours; 60 tablet; Refills: 0, Product [facility] Selection Permitted Signatures: Dispatcher [employer] Doron Ruvalcaba MD MD cha Sotelo, Ricky RN RN rs5 Corrections: (The following items were deleted from the chart) 16:17 16:17 BASIC METABOLIC PANEL+C.LAB.BRZ ordered. EDMS EDMS 16:17 16:17 CBC+H.LAB.BRZ ordered. EDMS EDMS 16:17 16:17 HEPATIC FUNCTION+C.LAB.BRZ ordered. EDMS EDMS 16:17 16:17 MAGNESIUM+C.LAB.BRZ ordered. EDMS EDMS 16:17 16:17 PROBNP+C.LAB.BRZ ordered. EDMS EDMS 16:17 16:17 PROTIME (+INR)+COAG.LAB.BRZ ordered. EDMS EDMS 16:17 16:17 Troponin High Sensitivity+C.LAB.BRZ ordered. EDMS EDMS 16:17 16:17 LIPASE+C.LAB.BRZ ordered. EDMS EDMS 16:17 16:17 Chest Single View+RAD.RAD.BRZ ordered. EDMS EDMS 16:17 16:17 Head Brain Wo Cont+CT.RAD.BRZ ordered. EDMS EDMS
--- NOTE | 2024-02-16 17:20 | RAD REPORT ---
EXAM DESCRIPTION: RADChest Single View02/16/2024 4:42 pm CLINICAL HISTORY: COUGH COMPARISON: Chest Single View dated 07/05/2020 TECHNIQUE: Portable AP view of the chest. FINDINGS: The lungs are clear. No pneumothorax or effusion. The cardiomediastinal contours are unre markable. Sequelae of median sternotomy. IMPRESSION: No acute cardiopulmonary process.
--- NOTE | 2024-02-16 17:20 | ER ---
Nurse's Notes [facility] Name: Jc Lozano Age: 68 yrs Sex: Male : 1955 Arrival Date: 02/16/2024 Time: 16:09 Bed 4 Private MD: Diagnosis: Adverse effect of insulin and oral hypoglycemic [antidiabetic] drugs;Altered mental status, unspecified-resolved;Acute gastritis without bleeding;Alcohol abuse Presentation: 02/15 16:15 Chief complaint: EMS states: toned out EMS for altered mental status, blood sugars rs5 in 30's on arrival, 18g IV initiated to RAC and 25g of D10 adm, blood sugars are now 112 and pt is no longer altered. 16:15 Coronavirus screen: At this time, the client does not indicate any symptoms associated rs5 with coronavirus-19. Ebola Screen: No symptoms or risks identified at this time. Initial Sepsis Screen: Does the patient meet any 2 criteria? No. Patient's initial sepsis screen is negative. Does the patient have a suspected source of infection? No. Patient's initial sepsis screen is negative. Risk Assessment: Do you want to hurt yourself or someone else? Patient reports no desire to harm self or others. Onset of symptoms was February 16, 2024. Care prior to arrival: IV initiated. 18 GA, in the right antecubital area. 16:15 Method Of Arrival: EMS: [facility] rs5 16:15 Acuity: ALVARADO 3 rs5 Triage Assessment: 16:24 General: Appears in no apparent distress. uncomfortable, Behavior is calm, cooperative. rs5 Pain: Denies pain. Neuro: Level of Consciousness is awake, alert, obeys commands, Oriented to person, place, time, situation. Historical: - Allergies: 16:23 No Known Allergies; rs5 - PMHx: 16:23 CHF; Diabetes - NIDDM; CVA; Hypertension; rs5 16:23 Chronic obstructive lung disease; rs5 - PSHx: 16:23 None; rs5 - Immunization history:: Adult Immunizations up to date. - Infectious Disease History:: Denies. - Social history:: Smoking status: Patient/guardian denies using tobacco, but has a distant history of tobacco abuse. Screenin:23 [facility] ED Fall Risk Assessment (Adult) History of falling in the last 3 months, rs5 including since admission No falls in past 3 months (0 pts) Confusion or Disorientation No (0 pts) Intoxicated or Sedated No (0 pts) Impaired Gait No (0 pts) Mobility Assist Device Used No (0 pt) Altered Elimination No (0 pt) Score/Fall Risk Level 0 - 2 = Low Risk Oriented to surroundings, Maintained a safe environment. Abuse screen: Denies threats or abuse. Nutritional screening: No deficits noted. Tuberculosis screening: No symptoms or risk factors identified. Assessment: 16:15 General: Appears in no apparent distress. comfortable, Behavior is calm, cooperative. rs5 Pain: Denies pain. Neuro: Level of Consciousness is awake, alert, obeys commands, Oriented to person, place, time, situation. Cardiovascular: Patient's skin is warm and dry. Respiratory: Airway is patent Respiratory effort is even, unlabored, Respiratory pattern is regular, symmetrical. GI: Abdomen is round non-distended, Abd is soft and non tender X 4 quads. : No signs and/or symptoms were reported regarding the genitourinary system. EENT: No signs and/or symptoms were reported regarding the EENT system. Derm: Skin is intact, Skin is pink, warm \T\ dry. Musculoskeletal: Range of motion: intact in all extremities. 17:20 GI: Reports nausea. rs5 17:20 Reassessment: provider notified pt is nauseated . Reassessment: Patient and/or family rs5 updated on plan of care and expected duration. Pain level reassessed. Patient is alert, oriented x 3, equal unlabored respirations, skin warm/dry/pink. 18:03 Reassessment: Patient and/or family updated on plan of care and expected duration. Pain rs5 level reassessed. Patient is alert, oriented x 3, equal unlabored respirations, skin warm/dry/pink. Vital Signs: 16:15 BP 170 / 110; Pulse 84; Resp 17; Temp 98(O); Pulse Ox 97% on R/A; rs5 17:01 BP 155 / 89; Pulse 80; Resp 16; Pulse Ox 99% on R/A; rs5 17:01 BP 157 / 84; Pulse 77; Resp 17; Pulse Ox 98% on R/A; rs5 17:55 BP 150 / 80; Pulse 70; Resp 17; Pulse Ox 99% on R/A; rs5 ED Course: 16:12 Patient arrived in ED. aa5 16:14 Doron Shafer MD is Attending Physician. ms3 16:20 Maximo Morris, KANE is Primary Nurse. rs5 16:23 Triage completed. rs5 16:23 Patient has correct armband on for positive identification. Bed in low position. Call rs5 light in reach. Side rails up X2. 16:23 No provider procedures requiring assistance completed. rs5 16:44 XRAY Chest (1 view) In Process Unspecified. EDMS 17:05 EKG done, by ED staff, reviewed by Doron Shafer MD. em1 17:30 Elissa Torres MD is Referral Physician. damon 18:00 IV discontinued, intact, bleeding controlled, No redness/swelling at site. Pressure rs5 dressing applied. Administered Medications: 16:30 Drug: NS 0.9% IV 1000 ml IV at 125 ml/hr continuous Route: IV; Rate: 125 ml/hr; Site: rs5 right antecubital; 18:01 Follow up: IV Status: IV converted to saline lock; IV Intake: 500ml rs5 17:50 Drug: Pantoprazole IVP 80 mg IVP once Route: IVP; Site: right antecubital; rs5 18:01 Follow up: Response: No adverse reaction rs5 17:50 Drug: Ondansetron IVP 4 mg IVP once; over 2 minutes Route: IVP; Site: right antecubital;rs5 18:01 Follow up: Response: No adverse reaction rs5 17:50 Drug: Sucralfate PO 1 grams PO once Route: PO; rs5 Medication: 16:24 VIS not applicable for this client. rs5 Intake: 18:01 IV: 500ml; Total: 500ml. rs5 Outcome: 17:20 Discharge ordered by . damon 18:00 Discharged to home ambulatory, rs5 18:00 Condition: stable rs5 18:00 Discharge instructions given to patient, family, Instructed on discharge instructions, follow up and referral plans. medication usage, Demonstrated understanding of instructions, follow-up care, medications, Prescriptions given X 3, 18:02 Patient left the ED. rs5 Signatures: Dispatcher [employer] EDFL Doron Shafer MD MD cha Martinez, Eric em1 Juli Tovar RN RN aa5 Adrian Espinosa, DO DO ms3 Maximo Morris RN RN rs5 Corrections: (The following items were deleted from the chart) 18:03 17:22 Reassessment: Patient and/or family updated on plan of care and expected rs5 duration. Pain level reassessed. Patient is alert, oriented x 3, equal unlabored respirations, skin warm/dry/pink. rs5 18:25 18:25 Patient left the ED. rs5 rs5
[2024-02-16] MEDS ORDERED: SUCRALFATE 1 GM TABLET ONE (17:47)
[2024-02-16] MEDS ORDERED: ONDANSETRON 4 MG/2 ML VIAL ONE (17:47)
[2024-02-16] MEDS ORDERED: PANTOPRAZOLE 40 MG INJ ONE (17:47)
[2024-02-16 18:29] VITALS: TEMP 98
[2024-02-16 18:31] VITALS: BP 157/84; O2SAT 98
--- NOTE | 2024-02-19 17:08 | EKG ---
Test Date: 2024-02-16 Test Time: 17:03:20 Provider Relations Consultant: KISHOR MEASUREMENT RESULTS: Intervals: Rate: 82 FL: 196 QRSD: 96 QT: 404 QTc: 472 [place]: P: 66 FL: 196 QRS: 71 T: 62 INTERPRETIVE STATEMENTS: Normal sinus rhythm with sinus arrhythmia Cannot rule out Anterior infarct, age undetermined Abnormal ECG No previous ECG available for comparison Electronically Signed On 02-19-24 17:00:51 CDT by Aiden Campbell
== END 2024-02-16 18:25 | disposition home or self-care (01) ==
LOC: ER 16:09
DX: R11.2 Nausea with vomiting, unspecified (principal); T38.3X5A Adverse effect of insulin and oral hypoglycemic [antidiabetic] drugs, initial encounter; K29.00 Acute gastritis without bleeding; F10.10 Alcohol abuse, uncomplicated; E11.9 Type 2 diabetes mellitus without complications; I10 Essential (primary) hypertension; Z86.73 Personal history of transient ischemic attack (TIA), and cerebral infarction without residual deficits
CPT/HCPCS: 96361; 93005; 85025; 80048; 36415; 83735; 85610; 82947; 80076; 84484; 83690; 83880; 71045; 96375; 96374; 99284; J2470; J2405; J7030